=== PATIENT | female | born 1940 | race African-American/Black ===

== ENCOUNTER 2017-11-28 12:41 | Outpatient (CLI) | payer MEDICARE ==
--- NOTE | 2017-12-07 16:53 | MMO ---
BILATERAL DIGITAL SCREENING MAMMOGRAMS: 12/07/17 HISTORY: 77-year-old female presents for digital screening mammography. COMPARISON: 12/11/15, 02/23/12. This patient's mammogram is interpreted with the assistance of computer aided detection. Mild scattered areas of fibroglandular changes are noted bilaterally. There are multiple bilateral ci rcumscribed masses in both breasts, primarily upper outer aspects, stable. No direct or indirect evid ence of malignancy. IMPRESSION: BI-RADS 2: Benign Finding(s) Routine annual screening mammography (for women over age 40). POS: KEKE
== END 2017-11-28 12:42 | disposition home or self-care (01) ==
LOC: SCSMAMMO 12:41
PROVIDERS: ATTEND Obstetrics & Gynecology
DX: Z12.31 Encounter for screening mammogram for malignant neoplasm of breast (principal)
CPT/HCPCS: 77067

== ENCOUNTER 2018-07-20 14:04 | Emergency (ER) | payer MEDICARE ==
[2018-07-20 14:53] LABS: Bilirubin Negative (Negative); Blood, Urine Negative (Negative); Glucose, Urine (Dipstick) Negative (Negative); Leukocyte Trace (Negative); Nitrite Negative (Negative); Protein, Urine (Dipstick) Negative (Neg-Trace); Urobilinogen 0.2 mg/dL (0.2-1.0)
[2018-07-20 14:55] LABS: Clarity Hazy (Clear)
[2018-07-20 14:59] LABS: Bacteria/HPF Rare-Few HPF (None Seen); RBC/HPF None Seen HPF (0-3); WBC/HPF 0-3 HPF (0-3)
--- NOTE | 2018-07-20 15:51 | CT ---
CT ABDOMEN NONCONTRAST CT PELVIS NONCONTRAST: (urolithiasis protocol) DATE: 07/20/18 HISTORY: 77-year-old female with left flank pain COMPARISON: None available. TECHNIQUE: IV injection of iodinated contrast media: none Oral contrast media: none FINDINGS: Other than for urolithiasis, the lack of IV and oral contrast limits the evaluation. Moderate to large amount of stool throughout the colon. There is a segment of right-side of transvers e colon that has mural thickening, and absence of stool. No small bowel dilation. Enlarged uterus wit h numerous coarse calcifications representing numerous calcified fibroids. No small bowel dilation. N o ascites or pneumoperitoneum. No renal, ureteral, or bladder calculus. Normal urinary bladder wall t hickness. Normal appendix. No major pathology identified involving bilateral kidneys, liver, pancreas , spleen, abdominal aorta, or adrenals. Levoscoliosis of lumbar spine with multilevel degenerative di sc disease. No ascites or pneumoperitoneum. No signs of colonic diverticulitis. IMPRESSION: 1. Possibility of colon cancer in the right transverse colon. Recommend correlation with colonoscopy . 2. Constipation. 3. No urolithiasis or obstructive uropathy. 4. Lumbar spondylosis and levoscoliosis. 5. Uterus enlarged by multiple calcified leiomyomata (fibroids). NIKO Meneses POS: [facility]
== END 2018-07-20 15:47 | disposition home or self-care (01) ==
LOC: SCSER 14:04
DX: K59.00 Constipation, unspecified (principal); J45.909 Unspecified asthma, uncomplicated; D25.9 Leiomyoma of uterus, unspecified; F41.9 Anxiety disorder, unspecified; E11.9 Type 2 diabetes mellitus without complications; F32.9 Major depressive disorder, single episode, unspecified; Z79.84 Long term (current) use of oral hypoglycemic drugs; Z79.899 Other long term (current) drug therapy
CPT/HCPCS: 74176; 81003; 81015

== ENCOUNTER 2018-09-08 02:44 | Emergency (ER) | payer MEDICARE ==
[2018-09-08] MEDS ORDERED: Morphine 4 MG/ML VIAL ONE (02:58)
[2018-09-08] MEDS ORDERED: Ketorolac Tromethamine 30 MG/ML VIAL ONE (02:58)
[2018-09-08 03:26] LABS: #Basophils 0.1 thou/uL (0.0-0.2); #Eosinphils 0.5 thou/uL (0.0-0.7); #Lymphocytes 1.5 thou/uL (1.20-3.40); #Monocytes 1.1 thou/uL (0.11-0.59); %Basophils 0.9 % (0.0-1.0); %Eosinophils 4.8 % (0.0-10.0); %Lymphocytes 13.2 % (21.0-51.0); %Monocytes 9.5 % (0.0-10.0); %Neutrophils 71.5 % (42.0-75.0); Hemoglobin 10.6 g/dL (12.0-16.0); Mean Corpuscular HGB CONC 33.9 g/dL (32.0-36.0); Mean Corpuscular Hemoglobin 29.5 pg (27.0-31.0); Mean Corpuscular Volume 86.9 fL (78.0-98.0); Mean Platelet Volume 9.4 fL (7.4-10.4); Platelet Count 188 thou/uL (130-400); RBC Distribution Width 12.3 % (11.5-14.5); Red Blood Cell (RBC) Count 3.58 mill/uL (4.20-5.40); White Blood Cell (WBC) Count 11.1 thou/uL (4.8-10.8)
[2018-09-08 04:34] LABS: ALT (SGPT) 8 U/L (8-55); AST (SGOT) 14 U/L (5-34); Albumin 3.8 g/dL (3.4-4.8); Alkaline Phosphatase 35 U/L (40-150); Anion Gap 13 mmol/L (10-20); BUN (Urea Nitrogen) 25 mg/dL (9.8-20.1); Bilirubin, Total 0.5 mg/dL (0.2-1.2); Calc. Creatinine Clearance 0 mL/min (70-130); Calcium 9.4 mg/dL (7.8-10.44); Carbon Dioxide 27 mmol/L (23-31); Chloride 104 mmol/L (98-107); Estimated GFR-MDRD 60; Globulin 2.1 g/dL (2.4-3.5); Glucose 207 mg/dL (83-110); Potassium 4.1 mmol/L (3.5-5.1); Protein, Total 5.9 g/dL (6.0-8.3); Sodium 140 mmol/L (136-145)
[2018-09-08 06:34] LABS: Hemoglobin 9.9 g/dL (12.0-16.0)
--- NOTE | 2018-09-08 07:46 | RAD ---
AP PELVIS: Date: 09/08/18 INDICATION: Fall down 14 steps around 0100 hours with pelvic pain. FINDINGS: No acute fracture or subluxation is evident. There is a moderate amount of retained stool within the rectal vault. There are scattered vascular calcifications. IMPRESSION: No definite acute osseous abnormality. POS: BH
--- NOTE | 2018-09-08 07:48 | RAD ---
CHEST 1 VIEW: Date: 09/08/18 INDICATION: Fall with chest pain. FINDINGS: Lungs are clear. Heart size is mildly prominent. Aorta is tortuous. No air space opacity, pleural eff usion, or pneumothorax evident. No definite acute osseous abnormality is noted. IMPRESSION: No definite acute cardiopulmonary abnormality. POS: BH
--- NOTE | 2018-09-08 07:49 | RAD ---
RIGHT ELBOW 2 VIEWS: Date: 09/08/18 INDICATION: Fall with right elbow pain. COMPARISON: None. FINDINGS: There is soft tissue gas within the distal volar right arm that may be related to IV placement. Lacer ation within this region cannot be excluded. No acute fracture or subluxation is evident. Enthesopath ic change is seen within the olecranon. IMPRESSION: 1. Soft tissue gas in the distal anterior right arm may be related to IV placement or laceration. Re commend correlation. 2. No acute osseous abnormality of the right elbow. POS: BH
--- NOTE | 2018-09-08 07:50 | RAD ---
2 VIEWS RIGHT HUMERUS: Date: 09/08/18 INDICATION: History of fall with arm pain. COMPARISON: None. IMPRESSION: There is soft tissue gas within the anterolateral aspect of the right arm may be related to laceratio n or may be related to IV placement. No acute fracture is evident. POS: BH
--- NOTE | 2018-09-08 07:51 | RAD ---
RIGHT FOREARM 2 VIEWS: Date: 09/08/18 INDICATION: History of fall down stairs with right arm pain. COMPARISON: None. FINDINGS: No acute fracture or subluxation is evident. Soft tissues are normal appearing. IMPRESSION: No acute osseous abnormality. POS: BH
--- NOTE | 2018-09-08 07:52 | RAD ---
RIGHT KNEE 4 VIEWS: Date: 09/08/18 INDICATION: Fall with right knee pain. COMPARISON: None. FINDINGS: No acute fracture or subluxation is evident. There is mild osteoarthrosis of the right knee. Soft tis sues are normal appearing. IMPRESSION: No acute osseous abnormality. POS: BH
--- NOTE | 2018-09-08 08:02 | CT ---
CT OF THE BRAIN WITHOUT CONTRAST: Date: 09/08/18 INDICATION: History of fall with concern for head injury. COMPARISON: None. FINDINGS: There is significant postsurgical change of sinus surgery involving the frontal sinus, ethmoid air ce lls, and maxillary sinuses. There is moderate mucosal thickening seen within the paranasal sinuses. M astoid air cells are clear. Skull is intact. There is moderate chronic small vessel white matter ischemic change. There is a remote lacunar infarc t involving the left frontal quintero radiata. Septum pellucidum and third ventricle are midline. IMPRESSION: 1. No acute intracranial abnormality. 2. Moderate chronic small vessel white matter ischemic change. 3. Moderate paranasal sinus disease. POS: BH
--- NOTE | 2018-09-08 08:04 | CT ---
CT CERVICAL SPINE WITHOUT CONTRAST: Date: 09/08/18 INDICATION: Fall with neck pain. COMPARISON: None. FINDINGS: No acute fracture or subluxation is evident. There is mild multilevel spondylosis of the cervical spi ne. Spinal alignment is preserved. Osseous central canal appears preserved. Prevertebral soft tissues are normal appearing. Craniocervical junction is normal. Lung apices are clear. IMPRESSION: No acute fracture or subluxation is demonstrated. POS: BH
--- NOTE | 2018-09-08 08:17 | CT ---
CT ABDOMEN AND PELVIS WITH IV CONTRAST: Date: 09/08/18 INDICATION: History of fall with abdominal pain. COMPARISON: Noncontrast CT of abdomen and pelvis dated 07/20/18. FINDINGS: Lung bases are clear. No definite acute traumatic injury is seen involving the solid organs of the abdomen. Small calcified granuloma seen within the liver. No free fluid or free air is demonstrated. There is a large right anterior abdominal wall hematoma within the subcutaneous tissues measuring 9.7 x 7.0 cm with surrounding inflammatory change. Again seen is a fibroid uterus. The bladder is within normal limits. There is a moderate amount of re tained stool within the colon and rectum. The suspicious region involving the transverse colon on the prior examination is somewhat limited due to poor distention of portions of the transverse colon, as well as retained stool. There is levoscoliosis of the lumbar spine. There is scattered degenerative change. IMPRESSION: 1. Large right subcutaneous abdominal wall hematoma measuring 9.7 cm with surrounding inflammatory c hange. 2. Persistent nondistention of portions of the transverse colon limits CT evaluation. Would recommen d appropriate colon screening. There was suspicion for a focal colonic lesion on the prior CT done . Recommend correlation with patient's history for intervening colonoscopy. 3. Fibroid uterus. 4. Prominent amount of retained stool within the rectum and colon. POS: [facility]
[2018-09-08] MEDS ORDERED: ISOVUE-370 76%-LOCM 1 ML ONE (15:15)
== END 2018-09-08 07:32 | disposition home or self-care (01) ==
LOC: ERS 02:44
DX: S30.1XXA Contusion of abdominal wall, initial encounter (principal); J45.909 Unspecified asthma, uncomplicated; E11.9 Type 2 diabetes mellitus without complications; I10 Essential (primary) hypertension; F41.9 Anxiety disorder, unspecified; F32.9 Major depressive disorder, single episode, unspecified; Z79.899 Other long term (current) drug therapy; Z79.84 Long term (current) use of oral hypoglycemic drugs; W10.9XXA Fall (on) (from) unspecified stairs and steps, initial encounter
CPT/HCPCS: 36415; 70450; 71045; 72125; 72170; 74177; 80053; 85025; 96361; 96374; 96375; J1885; J2270; Q9966

== ENCOUNTER 2020-05-05 11:08 | Inpatient (IN) | payer MEDICARE ==
[~2020-05-05 11:08] MED LIST: Iopamidol-370 76% 500 ML 1 ML ONE
--- NOTE | 2020-05-05 11:27 | CT ---
CT BRAIN WITHOUT CONTRAST: HISTORY: Level 1 stroke. COMPARISON: 11/20/2018, 03/03/2020 FINDINGS: There are foci of decreased attenuation in the periventricular white matter, consistent with chronic small vessel ischemic disease. No evidence of acute infarct, hemorrhage, midline shift or abnormal extra-axial fluid collections is seen. The ventricular size is stable and the basilar cisterns are pa tent. The bony calvarium is intact. There is mucosal disease in the paranasal sinuses. IMPRESSION: No CT evidence of acute intracranial process. Discussed over the telephone with ER physician Dr. Hernandes at 11:24 AM
--- NOTE | 2020-05-05 11:35 | CT ---
CT CERVICAL SPINE WITH CORONAL AND SAGITTAL REFORMATIONS AND NO IV CONTRAST: HISTORY: Fall, altered mental status, neck pain, level 1 stroke FINDINGS: Multilevel degenerative changes are present. No fracture, subluxation or facet malalignment is identified. No prevertebral soft tissue swelling is apparent. The visualized lung apices are unremarkable. Thyroid lesions are stable since 09/08/2018. IMPRESSION: No CT evidence for fracture or traumatic subluxation. Discussed over the telephone with ER physician Dr. Hernandes at 11:30 AM
[2020-05-05 11:41] LABS: #Lymphocytes 0.5 thou/uL (1.20-3.40); #Neutrophils 8.6 thou/uL (1.40-6.50); %Basophils 0.4 % (0.0-1.0); %Lymphocytes 4.8 % (21.0-51.0); %Monocytes 9.7 % (0.0-10.0); Hemoglobin 12.3 g/dL (12.0-16.0); Mean Corpuscular HGB CONC 32.9 g/dL (32.0-36.0); Mean Corpuscular Hemoglobin 29.4 pg (27.0-31.0); Mean Corpuscular Volume 89.5 fL (78.0-98.0); Mean Platelet Volume 9.7 fL (7.4-10.4); Platelet Count 267 thou/uL (130-400); RBC Distribution Width 12.4 % (11.5-14.5); Red Blood Cell (RBC) Count 4.17 mill/uL (4.20-5.40); White Blood Cell (WBC) Count 10.1 thou/uL (4.8-10.8)
[2020-05-05 11:45] LABS: INR-International Normal Ratio 0.9; PTT 25.4 sec (22.9-36.1); Prothrombin Time 12.6 sec (12.0-14.7)
--- NOTE | 2020-05-05 12:12 | RAD ---
RADIOGRAPH CHEST 1 VIEW: DATE: 05/05/2020 TIME: 11:59 AM HISTORY: 79-year-old female with altered mental status. Concern for aspiration. COMPARISON: 09/08/2018 FINDINGS: Evaluation is limited, and comparison is difficult, because of suboptimal positioning: Patient is rot ated to the left. Supine positioning makes this insensitive for pneumothorax detection. No gross consolidation is visualized. No gross pulmonary edema. IMPRESSION: No gross consolidation.
[2020-05-05 12:25] LABS: ALT (SGPT) 11 U/L (8-55); AST (SGOT) 28 U/L (5-34); Albumin 4.3 g/dL (3.4-4.8); Alkaline Phosphatase 57 U/L (40-110); Anion Gap 19 mmol/L (10-20); BUN (Urea Nitrogen) 16 mg/dL (9.8-20.1); Bilirubin, Total 0.5 mg/dL (0.2-1.2); CK (CPK) 132 U/L (29-168); Calc. Creatinine Clearance 0 mL/min (70-130); Calcium 9.6 mg/dL (7.8-10.44); Carbon Dioxide 26 mmol/L (23-31); Chloride 102 mmol/L (98-107); Globulin 3.3 g/dL (2.4-3.5); Glucose 202 mg/dL (83-110); Potassium 5.2 mmol/L (3.5-5.1); Protein, Total 7.6 g/dL (6.0-8.3); Sodium 142 mmol/L (136-145)
[2020-05-05 12:26] LABS: CKMB 3.2 ng/mL (0-6.6)
[2020-05-05 13:03] LABS: Bacteria/HPF None Seen HPF (None Seen); Bilirubin Negative (Negative); Blood, Urine 1+ (Negative); Clarity Clear (Clear); Glucose, Urine (Dipstick) 100 mg/dL (Negative); Ketone, Urine Negative (Negative); Leukocyte Negative Leu/uL (Negative); Nitrite Negative (Negative); Protein, Urine (Dipstick) 30 mg/dL (Neg-Trace); RBC/HPF 0-3 HPF (0-3); Specific Gravity, Urine 1.022 (1.002-1.036); Squamous Epithelial None Seen HPF (0-3); Urobilinogen Normal mg/dL (Less than 2); WBC/HPF 0-3 HPF (0-3); pH, Urine 7.5 (5.0-9.0)
[2020-05-05] MEDS ORDERED: Aspirin 300 MG Suppository ONE (13:18)
--- NOTE | 2020-05-05 13:36 | PDOC.HHP ---
Hospitalist HPI - History of Present Illness Altered mental status History of Present Illness: Patient has a history of dementia, she was found down by home health nurse, normally patient is alert and oriented x4, currently patient is nonverbal, patient is not able to provide any history Patient has a trial manager who left the patient in her chair around 8, and when she returned around 9 patient was found on the floor, trial manager noticed some blood drooling from her mouth, trial manager called paramedics and subsequently patient was brought to emergency room with backboard with a c-collar in place. Paramedics checked blood sugar which was 255, she was saturating 97% and she was hemodynamically stable with blood pressure 170/77 and pulse 70 irregular, patient was slightly combative upon arrival. In emergency room patient is given aspirin rectally, patient had CT brain which was negative for any acute intracranial process, CT cervical spine negative for any fracture or dislocation, CT [facility] [place] was also negative for any occlusion, chest x-ray was unremarkable ED Course: BP: 172/62, MAP: 98, Pulse: 73, Resp: 11, Pain: UTR, O2 sat: 94 on (Room Air), Time: 05/05/2020 11:55. Patient is given aspirin rectally Hospitalist ROS - Review of Systems ROS unobtainable: due to mental status - Medication Medications: Home medication CURRENT MEDICATIONS lisinopril MonMay 05, 2020 13:03 BENITO Moran, Tram TABLET : Strength - 10 mg : ORAL Patient Dose: unk mg Oral once a day. metFORMIN MonMay 05, 2020 13:03 BENITO Moran Tram TABLET : Strength - 1,000 mg : ORAL Patient Dose: unk mg Oral once a day. CeleXA MonMay 05, 2020 13:04 BENITO Moran, Tram tablet : Strength - 10 mg : ORAL Patient Dose: Unknown. ibuprofen MonMay 05, 2020 13:06 BENITO Moran, Tram tablet : Strength - 400 mg : ORAL Patient Dose: Unknown. pravastatin MonMay 05, 2020 13:20 BENITO Moran, Tram tablet : Strength - 20 mg : ORAL Patient Dose: Unknown. ferrous sulfate MonMay 05, 2020 13:21 BENITO Moran, Tram tablet : Strength - 325 mg (65 mg iron) : ORAL Patient Dose: Unknown. Dulcolax Stool Softener (dss) MonMay 05, 2020 13:21 BENITO Moran, Tram capsule : Strength - 100 mg : ORAL Patient Dose: Unknown. Allergies no known drug allergy CODE STATUS patient is full code Hospitalist History - Past Medical History Other Medical History: Hypertension Diabetes type 2 Asthma - Past Surgical History Other Surgical History: Past psychiatric history anxiety and depression - Family History Other Family History: No strong family history of premature coronary artery disease stroke or cancer - Social History Other Social History: No history of tobacco alcohol or illicit drug abuse Hospitalist Results - Labs Result Diagrams: 05/05/20 11:28 05/05/20 11:28 Lab results: WBC 10.1 thou/uL (4.8-10.8) 05/05/20 11:28 Hgb 12.3 g/dL (12.0-16.0) 05/05/20 11:28 Hct 37.3 % (36.0-47.0) 05/05/20 11:28 MCV 89.5 fL (78.0-98.0) 05/05/20 11:28 Plt Count 267 thou/uL (130-400) 05/05/20 11:28 Neutrophils % 85.0 % (42.0-75.0) H 05/05/20 11:28 Sodium 142 mmol/L (136-145) 05/05/20 11:28 Potassium 5.2 mmol/L (3.5-5.1) H 05/05/20 11:28 Chloride 102 mmol/L (98-107) 05/05/20 11:28 Carbon Dioxide 26 mmol/L (23-31) 05/05/20 11:28 BUN 16 mg/dL (9.8-20.1) 05/05/20 11:28 Creatinine 1.02 mg/dL (0.6-1.1) 05/05/20 11:28 Glucose 202 mg/dL (83-110) H 05/05/20 11:28 Calcium 9.6 mg/dL (7.8-10.44) 05/05/20 11:28 Total Bilirubin 0.5 mg/dL (0.2-1.2) 05/05/20 11:28 AST 28 U/L (5-34) 05/05/20 11:28 ALT 11 U/L (8-55) 05/05/20 11:28 Alkaline Phosphatase 57 U/L (40-110) 05/05/20 11:28 Creatine Kinase 132 U/L (29-168) 05/05/20 11:28 CK-MB (CK-2) 3.2 ng/mL (0-6.6) 05/05/20 11:28 Troponin I 0.068 ng/mL (< 0.028) H 05/05/20 11:28 B-Natriuretic Peptide 69.6 pg/mL (0-100) 05/05/20 11:28 Serum Total Protein 7.6 g/dL (6.0-8.3) 05/05/20 11:28 Albumin 4.3 g/dL (3.4-4.8) 05/05/20 11:28 Urine Ketones Negative mg/dL (Negative) 05/05/20 12:15 Urine Blood 1+ (Negative) A 05/05/20 12:15 Urine Nitrite Negative (Negative) 05/05/20 12:15 Ur Leukocyte Esterase Negative Javier/uL (Negative) 05/05/20 12:15 Urine RBC 0-3 HPF (0-3) 05/05/20 12:15 Urine WBC 0-3 HPF (0-3) 05/05/20 12:15 Ur Squamous Epith Cells None Seen HPF (0-3) 05/05/20 12:15 Urine Bacteria None Seen HPF (None Seen) 05/05/20 12:15 - EKG Interpretation EK lead EKG shows, atrial fibrillation with controlled ventricular response, Rate (beats per minute): 82, Interpretation:, Conduction normal, ST segments normal, T waves normal, [place], left, Clinical impression:, No acute findings for ischemia at this time. - Radiology Interpretation Other Status: image reviewed by me Additional Comment: Chest x-ray consistent with normal, no gross consolidation CT [facility] [place] angiography showing no hemodynamically significant stenosis or occlusion or aneurysm CT brain showed no evidence of acute intracranial process, mucosal disease in the paranasal sinuses, chronic small vessel ischemic changes CT cervical spine negative for any trauma, no fracture or subluxation Hospitalist H&P A/P - Problem (1) Altered mental status Code(s): R41.82 - ALTERED MENTAL STATUS, UNSPECIFIED Status: Acute Assessment and Plan: Etiology uncertain at this point, CT brain is negative, CT [facility] [place] is also negative, patient's baseline status changed, will consult neurology, at this point we need to rule out stroke as well as any cardiac event, all metabolic parameters are unremarkable, no evidence of UTI, Patient will be kept in the hospital, stroke floor will be admitted for observation, neuro check every 4 hourly, will obtain MRI brain, EEG, echocardiography, telemetry monitoring, continue aspirin, (2) Elevated troponin Code(s): R77.8 - OTHER SPECIFIED ABNORMALITIES OF PLASMA PROTEINS Status: Acute Assessment and Plan: EKG showing A. fib with controlled ventricular response, echocardiography will be obtained, will start metoprolol 25 mg twice daily, will consider evaluation while in hospital for chronic anticoagulation in view of A. fib, will continue aspirin, will do serial cardiac enzymes x3 (3) Hypertension Code(s): I10 - ESSENTIAL (PRIMARY) HYPERTENSION Status: Chronic Qualifiers: Hypertension type: essential hypertension Qualified Code(s): I10 - Essential (primary) hypertension (4) Diabetes type 2, controlled Code(s): E11.9 - TYPE 2 DIABETES MELLITUS WITHOUT COMPLICATIONS Status: Chronic Qualifiers: Diabetes mellitus group home insulin use: with intermediate designer use Diabetes mellitus complication status: without complication Qualified Code(s): E11.9 - Type 2 diabetes mellitus without complications; Z79.4 - senior care (current) use of insulin (5) Dyslipidemia Code(s): E78.5 - HYPERLIPIDEMIA, UNSPECIFIED Status: Chronic (6) Dementia Code(s): F03.90 - UNSPECIFIED DEMENTIA WITHOUT BEHAVIORAL DISTURBANCE Status: Chronic Qualifiers: Dementia type: Alzheimer's disease (7) Anxiety and depression Code(s): F41.9 - ANXIETY DISORDER, UNSPECIFIED; F32.9 - MAJOR DEPRESSIVE DISORDER, SINGLE EPISODE, UNSPECIFIED Status: Chronic (8) Atrial fibrillation Code(s): I48.91 - UNSPECIFIED ATRIAL FIBRILLATION Status: Chronic Qualifiers: Atrial fibrillation type: unspecified chronic Qualified Code(s): I48.20 - Chronic atrial fibrillation, unspecified; I48.2 - Chronic atrial fibrillation Assessment and Plan: Currently rate controlled, will do serial cardiac enzyme, echocardiography, will consider evaluation for chronic anticoagulation, will start Lovenox 1 mg/kg subcu 12 hourly (9) Hyperkalemia Code(s): E87.5 - HYPERKALEMIA Status: Acute Assessment and Plan: Mild, may be related to the lisinopril - Plan Plan: Plan Observation to stroke floor Neuro check every 4 hourly Telemetry monitoring MRI brain Echocardiography Neurology consultation Check orthostatic vitals We will consider Lovenox 1 mg/kg subcu every 12 hourly Her home medications will be reconciled We will repeat hemoglobin A1c, TSH, lipid profile tomorrow Hyperglycemia protocol treatment, TIA protocol treatment initiated Plan of care discussed with the patient's son and trial manager We will start IV fluid as well We will get EEG DVT prophylaxis Lovenox GI prophylaxis Protonix 40 mg p.o. daily CODE STATUS patient is full code Disposition plan based on clinical course likely 24 to 48 hours.
--- NOTE | 2020-05-05 15:32 | CT ---
EXAM: CT ANGIOGRAM OF THE HEAD AND NECK INDICATION: Level 1 stroke. Last seen normal at 2100 hours. COMPARISON: None TECHNIQUE: CT angiogram of the head and neck are performed in the axial plane. Three-dimensional refo rmatted images are submitted for interpretation. FINDINGS: CTA OF THE HEAD WITH AND WITHOUT CONTRAST: POSTCONTRAST CT OF BRAIN: Pathologic enhancement: No pathologic enhancement the brain. Left scalp hematoma, near the vertex. Co nfluent white matter hypodensities due to chronic small vessel ischemic change. Postcontrast soft tissue neck CT: Aerodigestive tract:Aerodigestive tract is patent. No mucosal abnormality. Limited evaluation of the oral cavity due to dental amalgam artifact. Epiglottis has a normal caliber. Preepiglottic fat is preserved. Sinuses: Polypoid mass occupying the right maxillary sinus. Nonemergent direct visualization is recom mended. Findings may be due to a remote process given evidence of previous endoscopic sinonasal surgery. Orbits: Bilateral ocular lens implants are appropriately located. Both globes are intact. Retrobulbar fat is preserved. Symmetric attenuation the optic nerves and ocular rectus muscles. Salivary glands:Appropriate attenuation of the parotid and submandibular glands. Thyroid gland: Heterogeneous. Hypodense nodules in both thyroid lobes. Consider nonemergent thyroid u ltrasound. Lymph nodes: No evidence of lymphadenopathy by size criteria. Paraspinal muscles: Symmetric attenuation of the sternocleidomastoid muscles. Appropriate attenuation of the paraspinal muscles. Cervical spine:Vertebral body height is maintained. No fracture. No significant central canal stenosi s or significant neural foraminal narrowing. Limited evaluation by technique. Upper mediastinum and lung apices: Chronic changes. No acute abnormality. CTA OF THE NECK WITH CONTRAST: Aorta: Appropriate enhancement and luminal diameter. Right carotid artery: Appropriate enhancement and luminal diameter of the origin of the right carotid artery, innominate artery, carotid bifurcation and internal carotid artery. No definite stenosis based upon NASCET criteria. Left carotid: Appropriate enhancement and luminal diameter of the origin left carotid artery, common carotid artery, carotid bifurcation and internal carotid artery. No significant stenosis based upon NASCET criteria. Subclavian arteries:Symmetric and patent Vertebral arteries:Patent throughout their course in the neck, codominant CTA OF THE BRAIN: Intracranial internal carotid arteries:Appropriate enhancement and luminal diameter. Mild atheroscler osis in bilateral paraclinoid segments. Anterior circulation: Appropriate enhancement and luminal diameter bilateral A1 segments, A2 segments , M1 segments and proximal MCA branches. Intracranial vertebral arteries: Appropriate enhancement and luminal diameter Posterior circulation: Both vertebral arteries supply normal caliber basilar artery. Appropriate enha ncement and luminal diameter involving bilateral P1 segments. IMPRESSION: 1. No hemodynamically significant stenosis, occlusion or aneurysmal formation. 2. Additional findings and recommendations as detailed above. Results of the study discussed with Dr. Mancia 05/05/2020 11:46 AM Code CR Transcribed Date/Time: 05/05/2020 3:32 PM
[2020-05-05 16:07] LABS: Troponin I 0.097 ng/mL (< 0.028)
[2020-05-05 16:57] VITALS: BMI 24.9
[2020-05-05] MEDS ORDERED: Ondansetron PF 4 MG/2 ML Vial IVP PRN (16:57)
[2020-05-05] MEDS ORDERED: Dextrose 5% in Water 1,000 ML IV PRN (16:57)
[2020-05-05] MEDS ORDERED: HumaLOG 300 UNITS/3 ML VIAL SC PRN (16:57)
[2020-05-05] MEDS ORDERED: HYDROcodone/Acetaminophen 5/325 mg Tablet PO PRN (16:57)
[2020-05-05] MEDS ORDERED: Nitroglycerin 0.4 MG TAB (25 Tab Bottle) SL PRN (16:57)
[2020-05-05] MEDS ORDERED: Acetaminophen 325 MG TAB PO PRN (16:57)
[2020-05-05] MEDS ORDERED: Labetalol HCl 100 MG/20 ML VIAL SLOW IVP PRN (16:57)
[2020-05-05] MEDS ORDERED: Calcium Carbonate 500 MG ChewTAB PO PRN (16:57)
[2020-05-05] MEDS ORDERED: hydrALAZINE 20 MG/ML VIAL SLOW IVP PRN (16:57)
[2020-05-05] MEDS ORDERED: Diabetic Tussin 200 MG/10 ML UDCUP PO PRN (16:57)
[2020-05-05] MEDS ORDERED: Ondansetron ODT 4 MG TAB PO PRN (16:57)
[2020-05-05] MEDS ORDERED: Loperamide HCl 2 MG CAP PO PRN (16:57)
[2020-05-05] MEDS ORDERED: Loratadine 10 MG TAB PO PRN (16:57)
[2020-05-05] MEDS ORDERED: Bisacodyl 10 MG SUPP PR PRN (16:57)
[2020-05-05] MEDS ORDERED: Sodium Chloride 0.65% Nasal 44 ML BOT EA NARE PRN (16:57)
[2020-05-05] MEDS ORDERED: Cepastat Lozenges 1 LOZ PO PRN (16:57)
[2020-05-05] MEDS ORDERED: Dextrose 50% Abboject 50 ML SYRINGE SLOW IVP PRN (16:57)
[2020-05-05] MEDS ORDERED: Enoxaparin Sodium 80 MG/0.8 ML SYRINGE SC SCH (18:00)
[2020-05-05 18:40] LABS: Troponin I 0.106 ng/mL (< 0.028)
[2020-05-05] MEDS: Dextrose 5 % And 0.9 % NaCl 1,000 ML IV SCH (19:52)
[2020-05-05] MEDS: Atorvastatin Calcium 40 MG TAB PO SCH (22:08)
[2020-05-05] MEDS: Metoprolol Tartrate 25 MG TAB PO SCH (22:08)
[2020-05-06] MEDS ORDERED: Acetaminophen 650 MG Suppository PR PRN (05:23)
[2020-05-06 05:39] LABS: Anion Gap 17 mmol/L (10-20); BUN (Urea Nitrogen) 13 mg/dL (9.8-20.1); Calc. Creatinine Clearance 60 mL/min (70-130); Calcium 9.6 mg/dL (7.8-10.44); Carbon Dioxide 28 mmol/L (23-31); Cardiac Risk 2.2 (Less than 4.5); Chloride 102 mmol/L (98-107); Cholesterol 151 mg/dl (< 200 Desired); Glucose 151 mg/dL (83-110); HDL Cholesterol 69 mg/dL (>60 Neg Risk); LDL Cholesterol, Calculated 65 mg/dL; Potassium 3.5 mmol/L (3.5-5.1); Sodium 143 mmol/L (136-145); Triglycerides 85 mg/dL (Less than 150)
[2020-05-06] MEDS: Dextrose 5 % And 0.9 % NaCl 1,000 ML IV SCH ×2 (05:40→20:57)
[2020-05-06 07:08] LABS: #Eosinphils 0.1 thou/uL (0.0-0.7); #Lymphocytes 1.5 thou/uL (1.20-3.40); #Monocytes 1.4 thou/uL (0.11-0.59); #Neutrophils 7.4 thou/uL (1.40-6.50); %Basophils 0.3 % (0.0-1.0); %Eosinophils 1.2 % (0.0-10.0); %Lymphocytes 14.6 % (21.0-51.0); %Monocytes 13.6 % (0.0-10.0); %Neutrophils 70.4 % (42.0-75.0); Hemoglobin 11.3 g/dL (12.0-16.0); Mean Corpuscular HGB CONC 33.2 g/dL (32.0-36.0); Mean Corpuscular Hemoglobin 29.3 pg (27.0-31.0); Mean Corpuscular Volume 88.3 fL (78.0-98.0); Platelet Count 251 thou/uL (130-400); RBC Distribution Width 12.4 % (11.5-14.5); Red Blood Cell (RBC) Count 3.87 mill/uL (4.20-5.40); White Blood Cell (WBC) Count 10.5 thou/uL (4.8-10.8)
[2020-05-06] MEDS ORDERED: FLU VACC QS2020-21(65YR UP)/PF 240 MCG/0.7 ML SYRINGE IM ONE (09:00)
[2020-05-06] MEDS: Metoprolol Tartrate 25 MG TAB PO SCH ×3 (09:04→21:15)
[2020-05-06] MEDS: Enoxaparin Sodium 80 MG/0.8 ML SYRINGE SC SCH ×2 (09:04→20:58)
[2020-05-06] MEDS: Aspirin 325 mg Enteric Coated Tablet PO SCH (09:04)
[2020-05-06] MEDS: HumaLOG 300 UNITS/3 ML VIAL SC PRN (11:55)
--- NOTE | 2020-05-06 12:16 | CON ---
NEUROLOGY CONSULTATION DATE OF CONSULTATION: 05/06/2020 REASON FOR CONSULTATION: Altered mental status. HISTORY OF PRESENT ILLNESS: Ms. Fletcher is a 79-year-old female with history significant for hypertension, diabetes, asthma, and dementia, presented to the emergency room with altered mental status. She was found down by the home health nurse and the patient is unable to provide any history. History is obtained from review of the medical records. Per records, she was found down by the home health nurse and was extremely confused. Otherwise, the patient is alert and oriented x4 at baseline. The patient has a medical records analyst who left the patient in her chair around 8 and when she returned around 9, she was on the floor and has blood drooling out of her mouth. She called the paramedics and she presented to the emergency room for further evaluation. Paramedics checked the blood sugar at that time which was 255 and she was saturating 97% and a blood pressure of 170/77 and pulse 70 and was irregular. The patient was combative upon arrival. In the emergency room, she was given aspirin rectally and CT scan of the head was done, which was negative for acute intracranial process. CT of the cervical spine was negative for any fracture or dislocation and CT of the [place] did not reveal any hemodynamically significant stenosis and she was admitted for further evaluation. REVIEW OF SYSTEMS: Unobtainable due to the patient's mental status. CURRENT MEDICATIONS: 1. Lisinopril. 2. Metformin. 3. Celexa. 4. Ibuprofen. 5. Pravastatin. 6. Ferrous sulfate. 7. Dulcolax stool softener. ALLERGIES: NO KNOWN DRUG ALLERGIES. PAST MEDICAL HISTORY: Hypertension, diabetes mellitus type 2, asthma. PAST SURGICAL HISTORY: section. PAST PSYCHIATRIC HISTORY: Anxiety, depression. FAMILY HISTORY: No family history of premature coronary artery disease or cancer. SOCIAL HISTORY: No history of tobacco, alcohol, or illegal drug abuse. Vital Signs & Weight: Vital Signs (12 hours) Temp Pulse Pulse Pulse Resp BP BP 05/06/20 11:49 61 62 176/90 H 168/86 H 05/06/20 11:00 98.4 F 66 18 05/06/20 07:00 99.2 F 63 18 05/06/20 06:10 99.2 F 05/06/20 05:40 99.9 F H 05/06/20 03:55 99.9 F H 80 18 BP Pulse Ox 05/06/20 11:49 05/06/20 11:00 176/90 H 93 L 05/06/20 07:00 145/81 H 94 L 05/06/20 06:10 05/06/20 05:40 05/06/20 03:55 175/97 H 94 L Weight Weight 168 lb 14.4 oz I&O: 05/05/20 05/06/20 05/07/20 06:59 06:59 06:59 Intake Total 60 Balance 60 Additional Labs: Accuchecks 05/06/20 05/06/20 05/05/20 10:41 05:44 20:57 POC Glucose 191 H 166 H 158 H 05/05/20 17:17 POC Glucose 148 H Radiology Reviewed by me: Yes EKG Reviewed by me: Yes Active Medications Generic Name Dose Route Start Last Admin Trade Name Freq PRN Reason Stop Dose Admin Acetaminophen 650 mg 05/06/20 05:23 05/06/20 05:40 Acetaminophen 650 Mg Suppository [place] 650 mg Q4H PRN Administration Headache/Fever/Mild Pain (1-3) Aspirin 325 mg 05/06/20 09:00 05/06/20 09:04 Aspirin 325 Mg Enteric Coated Tablet PO 325 mg DAILY TAYLOR Administration Atorvastatin Calcium 40 mg 05/05/20 21:00 05/05/20 22:08 Atorvastatin Calcium 40 Mg Tab PO Not Given [facility] Enoxaparin Sodium 80 mg 05/06/20 09:00 05/06/20 09:04 Enoxaparin Sodium 80 Mg/0.8 Ml Syringe SC 80 mg 0900,2100 [facility] Administration Dextrose/Sodium Chloride 1,000 mls @ 75 mls/hr 05/05/20 16:57 05/06/20 05:40 D5 0.9% Ns IV Not Given .[id number] [facility] Insulin Human Lispro 0 units 05/05/20 16:57 05/06/20 11:55 Humalog 300 Units/3 Ml Vial SC 2 unit .MODERATE SLIDING SC PRN Administration Moderate Correctional Scale Metoprolol Tartrate 25 mg 05/05/20 21:00 05/06/20 09:04 Metoprolol Tartrate 25 Mg Tab PO 25 mg BID TAYLOR Administration physical examination: General Appearance: NAD Eye: PERRL ENT: normocephalic atraumatic Neck: supple Heart: irregular Respiratory: CTAB Gastrointestinal: soft, non-tender Extremities: no cyanosis Skin: normal turgor Neurological: cranial nerve grossly intact Musculoskeletal: normal tone, normal strength Psychiatric: normal affect, normal behavior, A&O x 3 DATA REVIEWED: I reviewed the labs. It was significant for hyperkalemia 5.2 and hyperglycemia 202. Lab results: WBC 10.1 thou/uL (4.8-10.8) 05/05/20 11:28 Hgb 12.3 g/dL (12.0-16.0) 05/05/20 11:28 Hct 37.3 % (36.0-47.0) 05/05/20 11:28 MCV 89.5 fL (78.0-98.0) 05/05/20 11:28 Plt Count 267 thou/uL (130-400) 05/05/20 11:28 Neutrophils % 85.0 % (42.0-75.0) H 05/05/20 11:28 Sodium 142 mmol/L (136-145) 05/05/20 11:28 Potassium 5.2 mmol/L (3.5-5.1) H 05/05/20 11:28 Chloride 102 mmol/L (98-107) 05/05/20 11:28 Carbon Dioxide 26 mmol/L (23-31) 05/05/20 11:28 BUN 16 mg/dL (9.8-20.1) 05/05/20 11:28 Creatinine 1.02 mg/dL (0.6-1.1) 05/05/20 11:28 Glucose 202 mg/dL (83-110) H 05/05/20 11:28 Calcium 9.6 mg/dL (7.8-10.44) 05/05/20 11:28 Total Bilirubin 0.5 mg/dL (0.2-1.2) 05/05/20 11:28 AST 28 U/L (5-34) 05/05/20 11:28 ALT 11 U/L (8-55) 05/05/20 11:28 Alkaline Phosphatase 57 U/L (40-110) 05/05/20 11:28 Creatine Kinase 132 U/L (29-168) 05/05/20 11:28 CK-MB (CK-2) 3.2 ng/mL (0-6.6) 05/05/20 11:28 Troponin I 0.068 ng/mL (< 0.028) H 05/05/20 11:28 B-Natriuretic Peptide 69.6 pg/mL (0-100) 05/05/20 11:28 Serum Total Protein 7.6 g/dL (6.0-8.3) 05/05/20 11:28 Albumin 4.3 g/dL (3.4-4.8) 05/05/20 11:28 Urine Ketones Negative mg/dL (Negative) 05/05/20 12:15 Urine Blood 1+ (Negative) A 05/05/20 12:15 Urine Nitrite Negative (Negative) 05/05/20 12:15 Ur Leukocyte Esterase Negative Javier/uL (Negative) 05/05/20 12:15 Urine RBC 0-3 HPF (0-3) 05/05/20 12:15 Urine WBC 0-3 HPF (0-3) 05/05/20 12:15 Ur Squamous Epith Cells None Seen HPF (0-3) 05/05/20 12:15 Urine Bacteria None Seen HPF (None Seen) 05/05/20 12:15 - EKG Interpretation EK lead EKG shows, atrial fibrillation with controlled ventricular response - Radiology Interpretation Other Status: image reviewed by me Additional Comment: Chest x-ray consistent with normal, no gross consolidation CT [place] angiography showing no hemodynamically significant stenosis or occlusion or aneurysm CT brain showed no evidence of acute intracranial process, mucosal disease in the paranasal sinuses, chronic small vessel ischemic changes CT cervical spine negative for any trauma, no fracture or subluxation ASSESSMENT AND PLAN: (1) Altered mental status Code(s): R41.82 - ALTERED MENTAL STATUS, UNSPECIFIED Status: Acute (2) Elevated troponin Code(s): R77.8 - OTHER SPECIFIED ABNORMALITIES OF PLASMA PROTEINS Status: Acute (3) Hypertension Code(s): I10 - ESSENTIAL (PRIMARY) HYPERTENSION Status: Chronic Qualifiers: Hypertension type: essential hypertension Qualified Code(s): I10 - Essential (primary) hypertension (4) Diabetes type 2, controlled Code(s): E11.9 - TYPE 2 DIABETES MELLITUS WITHOUT COMPLICATIONS Status: Chronic Qualifiers: Diabetes mellitus long term care pharmacist insulin use: with long term care pharmacist use Diabetes mellitus complication status: without complication Qualified Code(s): E11.9 - Type 2 diabetes mellitus without complications; Z79.4 - termite treater (current) use of insulin (5) Dyslipidemia Code(s): E78.5 - HYPERLIPIDEMIA, UNSPECIFIED Status: Chronic (6) Dementia Code(s): F03.90 - UNSPECIFIED DEMENTIA WITHOUT BEHAVIORAL DISTURBANCE Status: Chronic Qualifiers: Dementia type: Alzheimer's disease (7) Anxiety and depression Code(s): F41.9 - ANXIETY DISORDER, UNSPECIFIED; F32.9 - MAJOR DEPRESSIVE DISORDER, SINGLE EPISODE, UNSPECIFIED Status: Chronic (8) Atrial fibrillation Code(s): I48.91 - UNSPECIFIED ATRIAL FIBRILLATION Status: Chronic Qualifiers: Atrial fibrillation type: unspecified chronic Qualified Code(s): I48.20 - Chronic atrial fibrillation, unspecified; I48.2 - Chronic atrial fibrillation (9) Hyperkalemia Code(s): E87.5 - HYPERKALEMIA Status: Acute Ms. La Fletcher is a 79-year-old female with history significant for dementia, hypertension, asthma, and diabetes, presented with altered mental status. Altered mental status seems to be multifactorial, but intracranial processes cannot be ruled out. Because of the risk factors, consider MRI of the brain to rule out acute intracranial process. 2D echo to evaluate for left ventricular ejection fraction. Start aspirin and statin for secondary stroke prevention. N.p.o. until cleared by Speech. Telemetry to monitor for arrhythmias. The patient is in atrial fibrillation. Consider Cardiology input. Neuro checks every 4 hours. PT/OT/Speech. Continue medical management per primary team. DVT prophylaxis. EEG to rule out underlying cortical irritability. GI prophylaxis. Permissive control of blood pressure at this time. Strict control of blood glucose. Continue medical management per primary team. We will continue to follow. Thank you for the consult. Job ID: [id number] MTDD
[2020-05-06 13:05] LABS: SARS-CoV-2 MS2 Positive; SARS-CoV-2 N Gene Negative; SARS-CoV-2 S Gene Negative; SARS-CoV-2 by NAA Not Detected (NotDetected); SARS-CoV-2 orf1ab Negative
[2020-05-06] MEDS ORDERED: Iopamidol-370 76% 500 ML 1 ML ONE (13:06)
--- NOTE | 2020-05-06 13:57 | PDOC.HOSPP ---
- Subjective Subjective: Patient was seen examined at bedside. This is a 79 years old female who has significant past medical history of hypertension, diabetes, asthma , who was found down by home health nurse. It was reported that patient was slightly combative upon arrival. Her pulse irregular. She had no history of atrial fib. She was subsequently admitted for further stroke work-up. Chart reviewed. She remains in atrial fib, unknown chronicity, rate is controlled. MRI is pending. Her troponins mildly elevated. Her 2D echo showed preserved EF, otherwise unremarkable. He denies any chest pain. Patient was noted slightly hypoxic on room air with O2 sat in the low 90s. She also had a low-grade temperature with T-max of 99.9. Her COVID was negative. UA was negative - Objective Vital Signs & Weight: Vital Signs (12 hours) Temp Pulse Pulse Pulse Resp BP BP 05/06/20 11:49 61 62 176/90 H 168/86 H 05/06/20 11:00 98.4 F 66 18 05/06/20 07:00 99.2 F 63 18 05/06/20 06:10 99.2 F 05/06/20 05:40 99.9 F H 05/06/20 03:55 99.9 F H 80 18 BP Pulse Ox 05/06/20 11:49 05/06/20 11:00 176/90 H 93 L 05/06/20 07:00 145/81 H 94 L 05/06/20 06:10 05/06/20 05:40 05/06/20 03:55 175/97 H 94 L Weight Weight 168 lb 14.4 oz I&O: 05/05/20 05/06/20 05/07/20 06:59 06:59 06:59 Intake Total 60 Balance 60 Result Diagrams: 05/06/20 04:50 05/06/20 04:50 Additional Labs: Accuchecks 05/06/20 05/06/20 05/05/20 10:41 05:44 20:57 POC Glucose 191 H 166 H 158 H 05/05/20 17:17 POC Glucose 148 H Radiology Reviewed by me: Yes EKG Reviewed by me: Yes Hospitalist ROS - Medication Medications: Active Medications Generic Name Dose Route Start Last Admin Trade Name Freq PRN Reason Stop Dose Admin Acetaminophen 650 mg 05/06/20 05:23 05/06/20 05:40 Acetaminophen 650 Mg Suppository MD 650 mg Q4H PRN Administration Headache/Fever/Mild Pain (1-3) Aspirin 325 mg 05/06/20 09:00 05/06/20 09:04 Aspirin 325 Mg Enteric Coated Tablet PO 325 mg DAILY TAYLOR Administration Atorvastatin Calcium 40 mg 05/05/20 21:00 05/05/20 22:08 Atorvastatin Calcium 40 Mg Tab PO Not Given HS TAYLOR Enoxaparin Sodium 80 mg 05/06/20 09:00 05/06/20 09:04 Enoxaparin Sodium 80 Mg/0.8 Ml Syringe SC 80 mg 0900,2100 [facility] Administration Dextrose/Sodium Chloride 1,000 mls @ 75 mls/hr 05/05/20 16:57 05/06/20 05:40 D5 0.9% Ns IV Not Given .[id number] [facility] Insulin Human Lispro 0 units 05/05/20 16:57 05/06/20 11:55 Humalog 300 Units/3 Ml Vial SC 2 unit .MODERATE SLIDING SC PRN Administration Moderate Correctional Scale Metoprolol Tartrate 25 mg 05/05/20 21:00 05/06/20 09:04 Metoprolol Tartrate 25 Mg Tab PO 25 mg BID TAYLOR Administration - Exam General Appearance: NAD Eye: PERRL ENT: normocephalic atraumatic Neck: supple Heart: irregular Respiratory: CTAB Gastrointestinal: soft, non-tender Extremities: no cyanosis Skin: normal turgor Neurological: cranial nerve grossly intact Musculoskeletal: normal tone, normal strength Psychiatric: normal affect, normal behavior, A&O x 3 Hosp A/P - Plan This is a 79 years old female who has significant past medical history of hypertension, diabetes, asthma , who was found down by home health nurse. It was reported that patient was slightly combative upon arrival. Her pulse irregular. She had no history of atrial fib. She was subsequently admitted for further stroke work-up given altered mental status. Chart reviewed. She remains in atrial fib, unknown chronicity, rate is controlled. MRI is pending. Her troponins mildly elevated. Her 2D echo showed preserved EF, otherwise unremarkable. She denies any chest pain. low grade fever note with slightly hypoxic on room air. Altered mental status - unclear etiology --Continue stroke work-up as recommended by neurology --Follow MRI, continue PT/OT --Follow EEG Atrial fib, rate controlled -unknown chronicity --Trop slightly elevated but remains flat otherwise. Echo reviewed, OK. --cont metoprolol for rate control --she is on Lovenox sq. Given elevated [id number] score, will be benefit from oral AC upon discharge --will consult cardiology to see if further ischemic workup is necessary given pt was found down --Will check CTA to r/o PE as pt is slightly hypoxic on room air. Also has low grade fever, make sure no evidence of pna. DM 2 --check A1C, ISS. Hold metformin d/t contrast studies HTN --cont BB Dysplipidemia --Well controlled, LDL 66. Continue statin Dementia --Without behavioral disturbances. Continue supportive care. Resume Aricept
--- NOTE | 2020-05-06 17:24 | PDOC.EEG ---
Neurology EEG Report - Report Report: This EEG was performed using 24 channel Estimize video digital EEG machine with 24 disc electrodes. This was an extended 2-hours 8 minutes of inpatient video EEG recording. Digital analysis of the EEG was done for Zbigniew and seizure detection which revealed no abnormalities. Background: The posterior background rhythm was not observed. Low amplitude EEG with excessive beta activity intermixed with the background. Hyperventilation.: Not performed. Photic stimulation: No significant response seen with photic stimulation Sleep: No stage change was observed. EEG diagnosis: Absence of posterior background rhythm. Clinical interpretation: This EEG is consistent with mild generalized nonspecific cerebral dysfunction.
--- NOTE | 2020-05-06 18:49 | MRI ---
MRI BRAIN WITHOUT CONTRAST: HISTORY: TIA, confusion, altered mental status CORRELATION: CT scan from 05/05/2020. FINDINGS: No restricted diffusion is seen. There are multiple foci of T2 prolongation in the periventricular wh ite matter, consistent with chronic small vessel ischemic disease. The ventricular size is appropriate and the basilar cisterns are patent. No evidence of acute infarct, hemorrhage, midline shift or abnormal extra-axial fluid collections is seen. There is mucosal disease in the paranasal sinuses. IMPRESSION: No evidence of acute intracranial process.
--- NOTE | 2020-05-06 18:51 | CT ---
CT ANGIO OF CHEST PERFORMED WITH IV CONTRAST ENHANCEMENT WITH 3D RECONSTRUCTIONS: Date: 05/06/2020 HISTORY: Patient found down on floor, hypoxic. FINDINGS: The lungs are clear of any infiltrative process. No pulmonary nodules. No pleural effusions. Old appearing left-sided rib fractures. No significant mediastinal or hilar adenopathy. There are moderate coronary calcifications. The thora cic aorta appears normal in caliber. Main pulmonary artery is dilated at approximately 4.6 cm. There is good pulmonary artery opacification obtained and no CT evidence for pulmonary embolus. Visualized liver parenchyma shows no focal findings. Hypodensities involving the kidneys are most lik jean cysts. Small hiatal hernia is present. IMPRESSION: No CT evidence for pulmonary embolus. Dilated main pulmonary artery noted. POS: PJ
[2020-05-06] MEDS ORDERED: Albuterol Sulfate 2.5 mg/3 ml Neb NEB PRN (19:46)
[2020-05-06] MEDS: risperiDONE 1 MG TAB PO SCH ×2 (20:54→21:16)
[2020-05-06] MEDS: Atorvastatin Calcium 40 MG TAB PO SCH ×2 (20:54→21:05)
[2020-05-06] MEDS: Donepezil HCl 5 MG TAB PO SCH ×2 (20:54→21:15)
[2020-05-06] MEDS: Latanoprost 0.005% Ophth Soln 2.5 ml Bottle EA EYE SCH ×2 (20:55→21:15)
[2020-05-06] MEDS: Citalopram 10 MG TAB PO SCH (21:15)
[2020-05-07 05:07] LABS: #Eosinphils 0.2 thou/uL (0.0-0.7); #Lymphocytes 1.2 thou/uL (1.20-3.40); #Monocytes 0.9 thou/uL (0.11-0.59); #Neutrophils 5.5 thou/uL (1.40-6.50); %Basophils 0.4 % (0.0-1.0); %Eosinophils 2.2 % (0.0-10.0); %Lymphocytes 15.7 % (21.0-51.0); %Monocytes 11.7 % (0.0-10.0); %Neutrophils 69.9 % (42.0-75.0); Hemoglobin 11.9 g/dL (12.0-16.0); Mean Corpuscular HGB CONC 33.8 g/dL (32.0-36.0); Mean Corpuscular Hemoglobin 30.1 pg (27.0-31.0); Mean Corpuscular Volume 89.2 fL (78.0-98.0); Mean Platelet Volume 8.7 fL (7.4-10.4); Platelet Count 240 thou/uL (130-400); RBC Distribution Width 12.2 % (11.5-14.5); Red Blood Cell (RBC) Count 3.96 mill/uL (4.20-5.40); White Blood Cell (WBC) Count 7.8 thou/uL (4.8-10.8)
[2020-05-07 05:30] LABS: Anion Gap 14 mmol/L (10-20); BUN (Urea Nitrogen) 11 mg/dL (9.8-20.1); Calc. Creatinine Clearance 63 mL/min (70-130); Calcium 9.2 mg/dL (7.8-10.44); Carbon Dioxide 29 mmol/L (23-31); Chloride 105 mmol/L (98-107); Glucose 217 mg/dL (83-110); Magnesium 1.5 mg/dL (1.6-2.6); Potassium 3.3 mmol/L (3.5-5.1); Sodium 145 mmol/L (136-145)
[2020-05-07] MEDS: HumaLOG 300 UNITS/3 ML VIAL SC PRN ×3 (06:38→17:37)
[2020-05-07] MEDS ORDERED: Magnesium Sulfate 4 GM in Sodium Chloride 0.9% 250 ML 250 ML IVPB SCH (07:30)
[2020-05-07] MEDS ORDERED: Potassium Chloride 20 MEQ TAB PO SCH (07:30)
[2020-05-07] MEDS ORDERED: Potassium Bicarbonate/Cit Ac 20 MEQ TAB PO SCH (08:30)
[2020-05-07] MEDS ORDERED: Amlodipine 5 MG TAB PO SCH (09:45)
--- NOTE | 2020-05-07 10:08 | CON ---
DATE OF CONSULTATION: 05/07/2020 REASON FOR CONSULTATION: Atrial fibrillation. HISTORY OF PRESENT ILLNESS: Ms. Fletcher is a very pleasant 79-year-old woman with history of dementia. She was brought into the hospital due to altered mental status. It is found that she is in atrial fibrillation since she has been here. The patient is unable to give much in the way of coherent history, but she denies any chest pain or pressure. The patient initially with atrial fibrillation, but since then she has also exhibited sinus rhythm and most recently is in sinus rhythm. No previous cardiac history that we know about. Neurology has seen her and done EEG which showed mild generalized nonspecific cerebral dysfunction. Echocardiogram, ejection fraction 55% to 60%. Unremarkable echocardiogram and CT angiography revealed no obstructive disease and brain MRI revealed no evidence of stroke. PHYSICAL EXAMINATION: GENERAL: The patient is currently awake, conversant. VITAL SIGNS: Blood pressure 170/87, pulse 70 and it is regular. NECK: Neck veins normal. Carotid normal upstrokes. LUNGS: Clear. CARDIAC: Normal S1, normal S2. I do not hear murmur, rub, or gallop. ABDOMEN: Soft, nontender. EXTREMITIES: Warm, dry. No clubbing or cyanosis. There is no edema. DIAGNOSTIC STUDIES: EKG did reveal atrial fibrillation, now she is actually in sinus rhythm. ASSESSMENT: 1. History of dementia. 2. Hypertension. 3. Paroxysmal atrial fibrillation. PLAN: 1. Agree with anticoagulation, although long-term anticoagulation may be somewhat challenging in this patient with dementia, although there is adequate supervision where she is living. 2. I think the best option to try to keep her in sinus rhythm is amiodarone by far the most effective medicine in trying to maintain sinus rhythm. There is some risk of pulmonary or other toxicity, but I think the other medicines available most likely will be much less likely to be effective. We will start the amiodarone. If the heart rate drops, we may need to stop beta-tremaine. We will add amlodipine as well. Job ID: [id number]
[2020-05-07] MEDS: Enoxaparin Sodium 80 MG/0.8 ML SYRINGE SC SCH ×2 (10:28→21:38)
[2020-05-07] MEDS: Aspirin 325 mg Enteric Coated Tablet PO SCH (10:29)
[2020-05-07] MEDS: Multivit, Therapeutic 1 TAB PO SCH (10:29)
[2020-05-07] MEDS: Lisinopril 10 MG TAB PO SCH (10:29)
[2020-05-07] MEDS: Ascorbic Acid 500 mg Chewable Tablet PO SCH (10:29)
[2020-05-07] MEDS: Ferrous Sulfate 325 MG TAB PO SCH (10:29)
[2020-05-07] MEDS: Cyanocobalamin (Vitamin B-12) 1,000 MCG TAB PO SCH (10:30)
[2020-05-07] MEDS: Metoprolol Tartrate 25 MG TAB PO SCH ×2 (10:31→21:39)
[2020-05-07] MEDS: Amiodarone 200 MG TAB PO SCH ×3 (10:35→21:38)
[2020-05-07] MEDS: Fish Oil 1,000 MG CAP PO SCH (11:03)
--- NOTE | 2020-05-07 13:19 | PDOC.HOSPP ---
- Subjective Subjective: Patient was seen and examined at bedside. Also discussed with her son on the phone. Update him with regard to her clinical status and discharge planning - Objective Vital Signs & Weight: Vital Signs (12 hours) Temp Pulse Pulse Resp BP BP BP 05/07/20 11:38 98.9 F 82 18 176/99 H 05/07/20 10:36 71 05/07/20 10:29 178/93 H 05/07/20 09:38 76 178/83 H 05/07/20 07:59 98.1 F 74 16 170/87 H 05/07/20 04:00 97.9 F 75 18 177/93 H Pulse Ox 05/07/20 11:38 93 L 05/07/20 10:36 05/07/20 10:29 05/07/20 09:38 05/07/20 07:59 94 L 05/07/20 04:00 93 L Weight Weight 168 lb 14.4 oz I&O: 05/06/20 05/07/20 05/08/20 06:59 06:59 06:59 Intake Total 909 60 Balance 909 60 Result Diagrams: 05/07/20 04:53 05/07/20 04:53 Additional Labs: Accuchecks 05/07/20 05/07/20 05/06/20 10:30 05:35 20:40 POC Glucose 160 H 219 H 243 H 05/06/20 16:48 POC Glucose 147 H Hospitalist ROS - Medication Medications: Active Medications Generic Name Dose Route Start Last Admin Trade Name Freq PRN Reason Stop Dose Admin Acetaminophen 650 mg 05/06/20 05:23 05/06/20 05:40 Acetaminophen 650 Mg Suppository NE 650 mg Q4H PRN Administration Headache/Fever/Mild Pain (1-3) Amiodarone HCl 400 mg 05/07/20 09:00 05/07/20 10:35 Amiodarone 200 Mg Tab PO 400 mg TID TAYLOR Administration Ascorbic Acid 500 mg 05/07/20 09:00 05/07/20 10:29 Ascorbic Acid 500 Mg Chewable Tablet PO 500 mg DAILY TAYLOR Administration Aspirin 325 mg 05/06/20 09:00 05/07/20 10:29 Aspirin 325 Mg Enteric Coated Tablet PO 325 mg DAILY TAYLOR Administration Atorvastatin Calcium 40 mg 05/05/20 21:00 12/09/20 21:05 Atorvastatin Calcium 40 Mg Tab PO Not Given HS [facility] Citalopram Hydrobromide 10 mg 05/06/20 21:00 05/06/20 21:15 Citalopram 10 Mg Tab PO Not Given HS [facility] Cyanocobalamin 500 mcg 05/07/20 09:00 05/07/20 10:30 Cyanocobalamin (Vitamin B-12) 1,000 Mcg Tab PO 500 mcg DAILY TAYLOR Administration Donepezil HCl 5 mg 05/06/20 21:00 05/06/20 21:15 Donepezil Hcl 5 Mg Tab PO Not Given HS TAYLOR Enoxaparin Sodium 80 mg 05/06/20 09:00 05/07/20 10:28 Enoxaparin Sodium 80 Mg/0.8 Ml Syringe SC 80 mg 899,2099 TAY[facility]OR Administration Ferrous Sulfate 325 mg 05/07/20 08:00 05/07/20 10:29 Ferrous Sulfate 325 Mg Tab PO 325 mg QAM-WM TAYLOR Administration Fish Oil 1,000 mg 05/07/20 09:00 05/07/20 11:03 Fish Oil 1,000 Mg Cap PO Not Given DAILY [facility] Dextrose/Sodium Chloride 1,000 mls @ 75 mls/hr 05/05/20 16:57 05/06/20 20:57 D5 0.9% Ns IV 1,000 mls .[id number] T[facility] Administration Insulin Human Lispro 0 units 05/05/20 16:57 05/07/20 11:55 Humalog 300 Units/3 Ml Vial SC 2 unit .MODERATE SLIDING SC PRN Administration Moderate Correctional Scale Latanoprost 1 drop 05/06/20 21:00 05/06/20 21:15 Latanoprost 0.005% Ophth Soln 2.5 Ml Bottle EA EYE Not Given HS [facility] Lisinopril 10 mg 05/07/20 09:00 05/07/20 10:29 Lisinopril 10 Mg Tab PO 10 mg DAILY [facility] Administration Metoprolol Tartrate 25 mg 05/05/20 21:00 05/07/20 10:31 Metoprolol Tartrate 25 Mg Tab PO 25 mg BID [facility] Administration Multivitamins 1 tab 05/07/20 09:00 05/07/20 10:29 Multivit, Therapeutic 1 Tab PO Not Given DAILY [facility] Risperidone 2 mg 05/06/20 21:00 05/06/20 21:16 Risperidone 1 Mg Tab PO Not Given HS TAYLOR - Exam General Appearance: NAD Eye: PERRL ENT: normocephalic atraumatic Neck: supple Heart: RRR Respiratory: CTAB Gastrointestinal: soft Extremities: no cyanosis, no clubbing Skin: normal turgor Neurological: cranial nerve grossly intact Musculoskeletal: generalized weakness Psychiatric: normal affect, normal behavior Hosp A/P - Plan This is a 79 years old female who has significant past medical history of hypertension, diabetes, asthma , who was found down by home health nurse. It was reported that patient was slightly combative upon arrival. Her pulse irregular. She had no history of atrial fib. She was subsequently admitted for further stroke work-up given altered mental status. Chart reviewed. She remains in atrial fib, unknown chronicity, rate is controlled. MRI is pending. Her troponins mildly elevated. Her 2D echo showed preserved EF, otherwise unremarka ble. She denies any chest pain. low grade fever note with slightly hypoxic on room air, that now resolved Altered mental status - likely d/t arrhythmias caused syncopal episode --stroke workup/EEG negative. --cont supportive cares. cont PT. mental status returned to baseline. Atrial fib, rate controlled -spontaneously converted back to normal sinus rhythm --Paroxysmal. Echo reviewed. Appreciate cardiology input --Cont B beta-tremaine, amiodarone. Lovenox for now, transition to oral anticoa gulation when tolerated PO well --replaced lytes. DM 2 --check A1C, ISS. Hold metformin d/t contrast studies HTN --cont BB, norvasc added by cardiology Dysplipidemia --Well controlled, LDL 66. Continue statin Dementia --Without behavioral disturbances. Continue supportive care. Resume Aricept Dispo: Swing bed. d/w CM/pt's on.
--- NOTE | 2020-05-07 13:51 | PDOC.NEUPN ---
- Subjective Encounter Date: 05/07/20 Subjective: Ms. Urena is much more awake and alert today. She knows her name La - Objective Vital Signs & Weight: Vital Signs (12 hours) Temp Pulse Pulse Resp BP BP BP 05/07/20 11:38 98.9 F 82 18 176/99 H 05/07/20 10:36 71 05/07/20 10:29 178/93 H 05/07/20 09:38 76 178/83 H 05/07/20 07:59 98.1 F 74 16 170/87 H 05/07/20 04:00 97.9 F 75 18 177/93 H Pulse Ox 05/07/20 11:38 93 L 05/07/20 10:36 05/07/20 10:29 05/07/20 09:38 05/07/20 07:59 94 L 05/07/20 04:00 93 L Weight Weight 168 lb 14.4 oz I&O: 05/06/20 05/07/20 05/08/20 06:59 06:59 06:59 Intake Total 909 60 Balance 909 60 Result Diagrams: 05/07/20 04:53 05/07/20 04:53 Additional Labs: Accuchecks 05/07/20 05/07/20 05/06/20 10:30 05:35 20:40 POC Glucose 160 H 219 H 243 H 05/06/20 16:48 POC Glucose 147 H Radiology Reviewed by me: Yes EKG Reviewed by me: Yes ROS - Review of Systems ROS unobtainable: due to mental status (Baseline dementia) - Medication Medications: Active Medications Generic Name Dose Route Start Last Admin Trade Name Dl PRN Reason Stop Dose Admin Acetaminophen 650 mg 05/06/20 05:23 05/06/20 05:40 Acetaminophen 650 Mg Suppository [place] 650 mg Q4H PRN Administration Headache/Fever/Mild Pain (1-3) Amiodarone HCl 400 mg 05/07/20 09:00 05/07/20 10:35 Amiodarone 200 Mg Tab PO 400 mg TID TAYLOR Administration Ascorbic Acid 500 mg 05/07/20 09:00 05/07/20 10:29 Ascorbic Acid 500 Mg Chewable Tablet PO 500 mg DAILY TAYLOR Administration Aspirin 325 mg 05/06/20 09:00 05/07/20 10:29 Aspirin 325 Mg Enteric Coated Tablet PO 325 mg DAILY TAYLOR Administration Atorvastatin Calcium 40 mg 05/05/20 21:00 05/06/20 21:05 Atorvastatin Calcium 40 Mg Tab PO Not Given HS [facility] Citalopram Hydrobromide 10 mg 05/06/20 21:00 05/06/20 21:15 Citalopram 10 Mg Tab PO Not Given HS [facility] Cyanocobalamin 500 mcg 05/07/20 09:00 05/07/20 10:30 Cyanocobalamin (Vitamin B-12) 1,000 Mcg Tab PO 500 mcg DAILY TAYLOR Administration Donepezil HCl 5 mg 05/06/20 21:00 05/06/20 21:15 Donepezil Hcl 5 Mg Tab PO Not Given HS [facility] Enoxaparin Sodium 80 mg 05/06/20 09:00 05/07/20 10:28 Enoxaparin Sodium 80 Mg/0.8 Ml Syringe SC 80 mg 0900,2100 TAYLOR Administration Ferrous Sulfate 325 mg 05/07/20 08:00 05/07/20 10:29 Ferrous Sulfate 325 Mg Tab PO 325 mg QAM-WM TAYLOR Administration Fish Oil 1,000 mg 05/07/20 09:00 05/07/20 11:03 Fish Oil 1,000 Mg Cap PO Not Given DAILY [facility] Dextrose/Sodium Chloride 1,000 mls @ 75 mls/hr 05/05/20 16:57 05/06/20 20:57 D5 0.9% Ns IV 1,000 mls .[id number] TAYLOR Administration Insulin Human Lispro 0 units 05/05/20 16:57 05/07/20 11:55 Humalog 300 Units/3 Ml Vial SC 2 unit .MODERATE SLIDING SC PRN Administration Moderate Correctional Scale Latanoprost 1 drop 05/06/20 21:00 05/06/20 21:15 Latanoprost 0.005% Ophth Soln 2.5 Ml Bottle EA EYE Not Given HS [facility] Lisinopril 10 mg 05/07/20 09:00 05/07/20 10:29 Lisinopril 10 Mg Tab PO 10 mg DAILY TAYLOR Administration Metoprolol Tartrate 25 mg 05/05/20 21:00 05/07/20 10:31 Metoprolol Tartrate 25 Mg Tab PO 25 mg BID TAYLOR Administration Multivitamins 1 tab 05/07/20 09:00 05/07/20 10:29 Multivit, Therapeutic 1 Tab PO Not Given DAILY TAYLOR Risperidone 2 mg 05/06/20 21:00 05/06/20 21:16 Risperidone 1 Mg Tab PO Not Given HS TAYLOR - Exam General Appearance: awake alert Eye: PERRL ENT: normocephalic atraumatic Neck: supple Respiratory: CTAB Cardiovascular: RRR, irregular Gastrointestinal: soft Extremities: no cyanosis Skin: normal turgor Neurological: no focal deficits, no new deficit Musculoskeletal: normal tone, normal strength, no muscle wasting PSYCH: normal affect, normal behavior, oriented to person Results - Labs Result Diagrams: 05/07/20 04:53 05/07/20 04:53 Lab results: WBC 7.8 thou/uL (4.8-10.8) 05/07/20 04:53 Hgb 11.9 g/dL (12.0-16.0) L 05/07/20 04:53 Hct 35.4 % (36.0-47.0) L 05/07/20 04:53 MCV 89.2 fL (78.0-98.0) 05/07/20 04:53 Plt Count 240 thou/uL (130-400) 05/07/20 04:53 Neutrophils % 69.9 % (42.0-75.0) 05/07/20 04:53 Sodium 145 mmol/L (136-145) 05/07/20 04:53 Potassium 3.3 mmol/L (3.5-5.1) L 05/07/20 04:53 Chloride 105 mmol/L (98-107) 05/07/20 04:53 Carbon Dioxide 29 mmol/L (23-31) 05/07/20 04:53 BUN 11 mg/dL (9.8-20.1) 05/07/20 04:53 Creatinine 0.91 mg/dL (0.6-1.1) 05/07/20 04:53 Glucose 217 mg/dL (83-110) H 05/07/20 04:53 Calcium 9.2 mg/dL (7.8-10.44) 05/07/20 04:53 Total Bilirubin 0.5 mg/dL (0.2-1.2) 05/05/20 11:28 AST 28 U/L (5-34) 05/05/20 11:28 ALT 11 U/L (8-55) 05/05/20 11:28 Alkaline Phosphatase 57 U/L (40-110) 05/05/20 11:28 Creatine Kinase 132 U/L (29-168) 05/05/20 11:28 CK-MB (CK-2) 3.2 ng/mL (0-6.6) 05/05/20 11:28 Troponin I 0.106 ng/mL (< 0.028) H 05/05/20 18:10 B-Natriuretic Peptide 140.5 pg/mL (0-100) H 05/07/20 04:53 Serum Total Protein 7.6 g/dL (6.0-8.3) 05/05/20 11:28 Albumin 4.3 g/dL (3.4-4.8) 05/05/20 11:28 Urine Ketones Negative mg/dL (Negative) 05/05/20 12:15 Urine Blood 1+ (Negative) A 05/05/20 12:15 Urine Nitrite Negative (Negative) 05/05/20 12:15 Ur Leukocyte Esterase Negative Javier/uL (Negative) 05/05/20 12:15 Urine RBC 0-3 HPF (0-3) 05/05/20 12:15 Urine WBC 0-3 HPF (0-3) 05/05/20 12:15 Ur Squamous Epith Cells None Seen HPF (0-3) 05/05/20 12:15 Urine Bacteria None Seen HPF (None Seen) 05/05/20 12:15 - EKG Interpretation EKG: EKG showed atrial fibrillation - Radiology Interpretation MRI - head Additional Comment: MRI of the brain was negative for acute intracranial pathology. PN A/P - Plan Daily Plan: PT/OT, speech therapy, DVT proph w/SCDs Ms. Fletcher is a 79-year-old female with history significant for dementia, hyp ertension, diabetes, asthma was found down by the home health nurse and there is a concern about TIA. Patient seems to be back to her baseline MRI of the brain reviewed which was negative for acute intracranial pathology. EEG reviewed which was negative for seizure activity. 2D echo showed normal ejection fraction with no thrombus or PFO. Left ventricular ejection fraction was 55 to 60%. CTA of the head and neck did not reveal hemodynamically significant stenosis. Neurochecks every 4 hours. Strict control of blood pressure and blood glucose. Continue aspirin and high intensity statin for secondary stroke prevention. Telemetryatrial fibrillationconsider cardiology input Continue medical management per primary team. PT/OT/speech. DVT prophylaxis. Plan discussed in detail with the nursing staff.
[2020-05-07] MEDS: Aluminum & Magnesium Hydroxide 60 ML, diphenhydrAMINE 150 MG, Lidocaine 2% Viscous Solu... SSW SCH ×2 (14:02→17:30)
[2020-05-07] MEDS: Dextrose 5 % And 0.9 % NaCl 1,000 ML IV SCH (15:48)
[2020-05-07] MEDS: Latanoprost 0.005% Ophth Soln 2.5 ml Bottle EA EYE SCH (21:39)
[2020-05-07] MEDS: risperiDONE 1 MG TAB PO SCH (21:39)
[2020-05-07] MEDS: Donepezil HCl 5 MG TAB PO SCH (21:39)
[2020-05-07] MEDS: Senokot S 8.6-50 MG TAB PO PRN (21:39)
[2020-05-07] MEDS: Citalopram 10 MG TAB PO SCH (21:40)
[2020-05-07] MEDS: Atorvastatin Calcium 40 MG TAB PO SCH (21:40)
[2020-05-08] MEDS: Aluminum & Magnesium Hydroxide 60 ML, diphenhydrAMINE 150 MG, Lidocaine 2% Viscous Solu... SSW SCH ×5 (00:34→21:59)
[2020-05-08] MEDS: Dextrose 5 % And 0.9 % NaCl 1,000 ML IV SCH ×3 (01:01→22:05)
[2020-05-08 04:57] LABS: Hemoglobin A1c 5.8 % (4.0-6.0)
[2020-05-08 05:12] LABS: Lactic Acid 0.8 mmol/L (0.5-2.2)
[2020-05-08 05:19] LABS: Anion Gap 15 mmol/L (10-20); BUN (Urea Nitrogen) 11 mg/dL (9.8-20.1); Calc. Creatinine Clearance 63 mL/min (70-130); Calcium 8.9 mg/dL (7.8-10.44); Carbon Dioxide 27 mmol/L (23-31); Cardiac Risk 2.4 (Less than 4.5); Chloride 109 mmol/L (98-107); Cholesterol 137 mg/dl (< 200 Desired); Glucose 229 mg/dL (83-110); HDL Cholesterol 56 mg/dL (>60 Neg Risk); Magnesium 1.9 mg/dL (1.6-2.6); Potassium 3.9 mmol/L (3.5-5.1); Sodium 147 mmol/L (136-145)
[2020-05-08 05:30] LABS: LDL Cholesterol, Calculated 54 mg/dL
[2020-05-08 05:45] LABS: Triglycerides 116 mg/dL (Less than 150)
[2020-05-08] MEDS: HumaLOG 300 UNITS/3 ML VIAL SC PRN ×2 (06:51→10:50)
[2020-05-08] MEDS: Aspirin 325 mg Enteric Coated Tablet PO SCH (09:13)
[2020-05-08] MEDS: Multivit, Therapeutic 1 TAB PO SCH (09:13)
[2020-05-08] MEDS: Enoxaparin Sodium 80 MG/0.8 ML SYRINGE SC SCH ×2 (09:13→21:58)
[2020-05-08] MEDS: Fish Oil 1,000 MG CAP PO SCH (09:13)
[2020-05-08] MEDS: Amlodipine 5 MG TAB PO SCH (09:14)
[2020-05-08] MEDS: Ascorbic Acid 500 mg Chewable Tablet PO SCH (09:14)
[2020-05-08] MEDS: Cyanocobalamin (Vitamin B-12) 1,000 MCG TAB PO SCH (09:15)
--- NOTE | 2020-05-08 09:15 | PRG ---
DATE OF SERVICE: 05/08/2020 SUBJECTIVE: Ms. Fletcher is maintaining much better sinus rhythm. Her mental status is unchanged. She has a low-grade fever. OBJECTIVE: VITAL SIGNS: Temperature 100.2, pulse is 70, sinus. LUNGS: Clear anteriorly and laterally. CARDIAC: Normal S1. Normal S2. ASSESSMENT: 1. Paroxysmal atrial fibrillation maintaining sinus rhythm. 2. Longstanding dementia. 3. Low-grade fever. PLAN: 1. amiodarone to 400 mg twice a day. 2. When she is released to go to amiodarone 400 mg once a day for 30 days, then 200 mg a day. Job ID: [id number]
[2020-05-08] MEDS: Lisinopril 10 MG TAB PO SCH (09:16)
[2020-05-08] MEDS: Metoprolol Tartrate 25 MG TAB PO SCH ×2 (09:16→21:59)
[2020-05-08] MEDS: Ferrous Sulfate 325 MG TAB PO SCH (09:16)
--- NOTE | 2020-05-08 09:16 | PDOC.HOSPP ---
- Objective Vital Signs & Weight: Vital Signs (12 hours) Temp Pulse Resp BP Pulse Ox 05/08/20 07:38 98.3 F 71 18 145/71 H 96 05/08/20 04:00 99.4 F 82 16 157/91 H 93 L 05/08/20 00:31 93 L 05/07/20 23:28 100.2 F H 77 16 172/83 H 93 L Weight Weight 168 lb 14.4 oz I&O: 05/07/20 05/08/20 05/09/20 06:59 06:59 06:59 Intake Total 909 688 Balance 909 688 Result Diagrams: 05/07/20 04:53 05/08/20 04:35 Additional Labs: Accuchecks 05/08/20 05/07/20 05/07/20 06:20 21:22 16:35 POC Glucose 206 H 172 H 203 H 05/07/20 10:30 POC Glucose 160 H Hospitalist ROS - Medication Medications: Active Medications Generic Name Dose Route Start Last Admin Trade Name Freq PRN Reason Stop Dose Admin Acetaminophen 650 mg 05/06/20 05:23 05/06/20 05:40 Acetaminophen 650 Mg Suppository [place] 650 mg Q4H PRN Administration Headache/Fever/Mild Pain (1-3) Ascorbic Acid 500 mg 05/07/20 09:00 05/07/20 10:29 Ascorbic Acid 500 Mg Chewable Tablet PO 500 mg DAILY TAYLOR Administration Aspirin 325 mg 05/06/20 09:00 05/07/20 10:29 Aspirin 325 Mg Enteric Coated Tablet PO 325 mg DAILY TAYLOR Administration Atorvastatin Calcium 40 mg 05/05/20 21:00 05/07/20 21:40 Atorvastatin Calcium 40 Mg Tab PO 40 mg HS TAYLOR Administration Citalopram Hydrobromide 10 mg 05/06/20 21:00 05/07/20 21:40 Citalopram 10 Mg Tab PO 10 mg HS TAYLOR Administration Al Hydroxide/Mg Hydroxide 60 0 ml 05/07/20 11:30 05/08/20 00:34 ml/ Diphenhydramine HCl 150 mg SSW 10 ml / Lidocaine HCl 60 ml/ ACHS TAYLOR Administration Nystatin 6,000,000 units Cyanocobalamin 500 mcg 05/07/20 09:00 05/07/20 10:30 Cyanocobalamin (Vitamin B-12) 1,000 Mcg Tab PO 500 mcg DAILY TAYLOR Administration Donepezil HCl 5 mg 05/06/20 21:00 05/07/20 21:39 Donepezil Hcl 5 Mg Tab PO 5 mg HS TAYLOR Administration Enoxaparin Sodium 80 mg 05/06/20 09:00 05/07/20 21:38 Enoxaparin Sodium 80 Mg/0.8 Ml Syringe SC 80 mg 0900,2100 TAYLOR Administration Ferrous Sulfate 325 mg 05/07/20 08:00 05/07/20 10:29 Ferrous Sulfate 325 Mg Tab PO 325 mg QAM-WM TAYLOR Administration Fish Oil 1,000 mg 05/07/20 09:00 05/07/20 11:03 Fish Oil 1,000 Mg Cap PO Not Given DAILY TAYLOR Dextrose/Sodium Chloride 1,000 mls @ 75 mls/hr 05/05/20 16:57 05/08/20 06:51 D5 0.9% Ns IV 1,000 mls .[id number] TAYLOR Administration Insulin Human Lispro 0 units 05/05/20 16:57 05/08/20 06:51 Humalog 300 Units/3 Ml Vial SC 4 unit .MODERATE SLIDING SC PRN Administration Moderate Correctional Scale Latanoprost 1 drop 05/06/20 21:00 05/07/20 21:39 Latanoprost 0.005% Ophth Soln 2.5 Ml Bottle EA EYE 1 drop HS TAYLOR Administration Lisinopril 10 mg 05/07/20 09:00 05/07/20 10:29 Lisinopril 10 Mg Tab PO 10 mg DAILY TAYLOR Administration Metoprolol Tartrate 25 mg 05/05/20 21:00 05/07/20 21:39 Metoprolol Tartrate 25 Mg Tab PO 25 mg BID TAYLOR Administration Multivitamins 1 tab 05/07/20 09:00 05/07/20 10:29 Multivit, Therapeutic 1 Tab PO Not Given DAILY TAYLOR Risperidone 2 mg 05/06/20 21:00 05/07/20 21:39 Risperidone 1 Mg Tab PO 2 mg HS TAYLOR Administration Senna/Docusate Sodium 2 tab 05/05/20 16:57 05/07/20 21:39 Senokot S 8.6-50 Mg Tab PO 2 tab BID PRN Administration Constipation Hosp A/P - Plan This is a 79 years old female who has significant past medical history of hypertension, diabetes, asthma , who was found down by home health nurse. It was reported that patient was slightly combative upon arrival. Her pulse irregu lar. She had no history of atrial fib. She was subsequently admitted for further stroke work-up given altered mental status. Chart reviewed. She remains in atrial fib, unknown chronicity, rate is controlled. MRI is pending. Her troponins mildly elevated. Her 2D echo showed preserved EF, otherwise unremarkable. She denies any chest pain. low grade fever note with slightly hypoxic on room air, that now resolved Altered mental status - likely d/t arrhythmias caused syncopal episode --stroke workup/EEG negative. --cont supportive cares. cont PT. mental status returned to baseline. Atrial fib, rate controlled -spontaneously converted back to normal sinus rhythm --Paroxysmal. Echo reviewed. Appreciate cardiology input --Cont B beta-tremaine, amiodarone. Lovenox for now, transition to oral anticoagulation when tolerated PO well --replaced lytes. DM 2 --check A1C, ISS. Hold metformin d/t contrast studies HTN --cont BB, norvasc added by cardiology Dysplipidemia --Well controlled, LDL 66. Continue statin Dementia --Without behavioral disturbances. Continue supportive care. Resume Aricept Dispo: Swing bed. d/w CM/pt's on.
[2020-05-08] MEDS: Amiodarone 200 MG TAB PO SCH ×2 (09:17→21:59)
[2020-05-08] MEDS ORDERED: Amiodarone 200 MG TAB PO SCH (09:30)
--- NOTE | 2020-05-08 11:42 | RAD ---
CHEST: Date: 05/08/2020 COMPARISON: CTA chest 05/06/2020. HISTORY: History of being found down with fever and possible aspiration pneumonia. FINDINGS: Single view of the chest shows an enlarged cardiomediastinal silhouette. There is no evidence of cons olidation, mass, or pleural effusion. Degenerative changes are seen in the spine. IMPRESSION: No evidence of acute cardiopulmonary disease. POS: EAA
--- NOTE | 2020-05-08 14:58 | PDOC.HOSPP ---
- Subjective Subjective: Seen examined at bedside. No acute events overnight. Patient had a low-grade fever 100.2. She still eating very little, and lethargic. She has converted back to normal sinus rhythm. Discussed with cardiology. - Objective Vital Signs & Weight: Vital Signs (12 hours) Temp Pulse Pulse Pulse Resp BP BP 05/08/20 13:25 72 16 05/08/20 10:29 70 66 153/90 H 149/89 H 05/08/20 10:24 98.0 F 76 15 05/08/20 09:14 71 05/08/20 07:38 98.3 F 71 18 05/08/20 04:00 99.4 F 82 16 BP Pulse Ox 05/08/20 13:25 05/08/20 10:29 05/08/20 10:24 160/68 H 96 05/08/20 09:14 05/08/20 07:38 145/71 H 96 05/08/20 04:00 157/91 H 93 L Weight Weight 168 lb 14.4 oz I&O: 05/07/20 05/08/20 05/09/20 06:59 06:59 06:59 Intake Total 909 688 Balance 909 688 Result Diagrams: 05/07/20 04:53 05/08/20 04:35 Additional Labs: Accuchecks 05/08/20 05/08/20 05/07/20 10:23 06:20 21:22 POC Glucose 251 H 206 H 172 H 05/07/20 16:35 POC Glucose 203 H Radiology Reviewed by me: Yes EKG Reviewed by me: Yes Hospitalist ROS - Medication Medications: Active Medications Generic Name Dose Route Start Last Admin Trade Name Freq PRN Reason Stop Dose Admin Acetaminophen 650 mg 05/06/20 05:23 05/06/20 05:40 Acetaminophen 650 Mg Suppository [place] 650 mg Q4H PRN Administration Headache/Fever/Mild Pain (1-3) Albuterol/Ipratropium 3 ml 05/08/20 13:00 05/08/20 13:25 Ipratropium/Albuterol Sulfate 3 Ml Neb NEB 3 ml [id number] TAYLOR Administration Amlodipine Besylate 2.5 mg 05/08/20 09:00 05/08/20 09:14 Amlodipine 5 Mg Tab PO 2.5 mg DAILY TAYLOR Administration Ascorbic Acid 500 mg 05/07/20 09:00 05/08/20 09:14 Ascorbic Acid 500 Mg Chewable Tablet PO 500 mg DAILY TAYLOR Administration Aspirin 325 mg 05/06/20 09:00 05/08/20 09:13 Aspirin 325 Mg Enteric Coated Tablet PO 325 mg DAILY TAYLOR Administration Atorvastatin Calcium 40 mg 05/05/20 21:00 05/07/20 21:40 Atorvastatin Calcium 40 Mg Tab PO 40 mg HS TAYLOR Administration Citalopram Hydrobromide 10 mg 05/06/20 21:00 05/07/20 21:40 Citalopram 10 Mg Tab PO 10 mg HS TAYLOR Administration Al Hydroxide/Mg Hydroxide 60 0 ml 05/07/20 11:30 05/08/20 10:52 ml/ Diphenhydramine HCl 150 mg SSW 10 ml / Lidocaine HCl 60 ml/ ACHS TAYLOR Administration Nystatin 6,000,000 units Cyanocobalamin 500 mcg 05/07/20 09:00 05/08/20 09:15 Cyanocobalamin (Vitamin B-12) 1,000 Mcg Tab PO 500 mcg DAILY TAYLOR Administration Donepezil HCl 5 mg 05/06/20 21:00 05/07/20 21:39 Donepezil Hcl 5 Mg Tab PO 5 mg HS TYALOR Administration Enoxaparin Sodium 80 mg 05/06/20 09:00 05/08/20 09:13 Enoxaparin Sodium 80 Mg/0.8 Ml Syringe SC 80 mg 899,2099 TAYLOR Administration Ferrous Sulfate 325 mg 05/07/20 08:00 05/08/20 09:16 Ferrous Sulfate 325 Mg Tab PO 325 mg QAM-WM TAYLOR Administration Fish Oil 1,000 mg 05/07/20 09:00 05/08/20 09:13 Fish Oil 1,000 Mg Cap PO 1,000 mg DAILY TAYLOR Administration Dextrose/Sodium Chloride 1,000 mls @ 75 mls/hr 05/05/20 16:57 05/08/20 06:51 D5 0.9% Ns IV 1,000 mls .[id number] TAYLOR Administration Insulin Human Lispro 0 units 05/05/20 16:57 05/08/20 10:50 Humalog 300 Units/3 Ml Vial SC 6 unit .MODERATE SLIDING SC PRN Administration Moderate Correctional Scale Latanoprost 1 drop 05/06/20 21:00 05/07/20 21:39 Latanoprost 0.005% Ophth Soln 2.5 Ml Bottle EA EYE 1 drop HS TAYLOR Administration Lisinopril 10 mg 05/07/20 09:00 05/08/20 09:16 Lisinopril 10 Mg Tab PO 10 mg DAILY TAYLOR Administration Metoprolol Tartrate 25 mg 05/05/20 21:00 05/08/20 09:16 Metoprolol Tartrate 25 Mg Tab PO 25 mg BID TAYLOR Administration Multivitamins 1 tab 05/07/20 09:00 05/08/20 09:13 Multivit, Therapeutic 1 Tab PO 1 tab DAILY TAYLOR Administration Risperidone 2 mg 05/06/20 21:00 05/07/20 21:39 Risperidone 1 Mg Tab PO 2 mg HS TAYLOR Administration Senna/Docusate Sodium 2 tab 05/05/20 16:57 05/07/20 21:39 Senokot S 8.6-50 Mg Tab PO 2 tab BID PRN Administration Constipation - Exam General Appearance: NAD Eye: PERRL ENT: normocephalic atraumatic Neck: supple, symmetric Heart: RRR, no murmur Respiratory: CTAB Gastrointestinal: soft, non-tender Extremities: no cyanosis Skin: normal turgor Neurological: cranial nerve grossly intact Musculoskeletal: normal tone Psychiatric: normal affect, normal behavior, oriented to person, somnolent, lethargic Hosp A/P - Plan This is a 79 years old female who has significant past medical history of hypertension, diabetes, asthma , who was found down by home health nurse. It was reported that patient was slightly combative upon arrival. Her pulse irregu lar. She had no history of atrial fib. She was subsequently admitted for further stroke work-up given altered mental status. Chart reviewed. She remains in atrial fib, unknown chronicity, rate is controlled. MRI is pending. Her troponins mildly elevated. Her 2D echo showed preserved EF, otherwise unremarkable. She denies any chest pain. low grade fever note with slightly hypoxic on room air, that now resolved Fever - low grade 100.2, slightly hypoxic on room air --since pt was found down, concern she may aspirated --will rpt 2V CXR, send cultures. Hold off on abx for now. Observe her over the weekend, transfer to [facility] on Monday if stable. --covid negative. Altered mental status - likely d/t arrhythmias caused syncopal episode --stroke workup/EEG negative. --cont supportive cares. cont PT. mental status returned to baseline. Atrial fib, rate controlled - spontaneously converted back to normal sinus rhythm --Paroxysmal. Echo reviewed. Appreciate cardiology input --Cont B beta-tremaine, amiodarone as per cardiology. Lovenox for now, transition to oral anticoagulation when tolerated PO well --replaced lytes. DM 2 --A1C 5.8, ISS. Hold metformin d/t contrast studies HTN --cont BB, norvasc added by cardiology Dysplipidemia --Well controlled, LDL 66. Continue statin Dementia --Without behavioral disturbances. Continue supportive care. Resume Aricept Dispo: Swing bed when medically ready. d/w CM/pt's on.
[2020-05-08] MEDS: Atorvastatin Calcium 40 MG TAB PO SCH (21:58)
[2020-05-08] MEDS: Citalopram 10 MG TAB PO SCH (21:58)
[2020-05-08] MEDS: risperiDONE 1 MG TAB PO SCH (21:59)
[2020-05-08] MEDS: Latanoprost 0.005% Ophth Soln 2.5 ml Bottle EA EYE SCH (21:59)
[2020-05-08] MEDS: Donepezil HCl 5 MG TAB PO SCH (21:59)
[2020-05-08] MEDS: Senokot S 8.6-50 MG TAB PO PRN (22:13)
[2020-05-09 05:10] LABS: #Eosinphils 0.4 thou/uL (0.0-0.7); #Lymphocytes 1.5 thou/uL (1.20-3.40); #Monocytes 0.8 thou/uL (0.11-0.59); #Neutrophils 3.8 thou/uL (1.40-6.50); %Basophils 0.4 % (0.0-1.0); %Eosinophils 5.4 % (0.0-10.0); %Lymphocytes 22.5 % (21.0-51.0); %Monocytes 12.8 % (0.0-10.0); %Neutrophils 58.8 % (42.0-75.0); Mean Corpuscular HGB CONC 33.4 g/dL (32.0-36.0); Mean Corpuscular Hemoglobin 29.9 pg (27.0-31.0); Mean Corpuscular Volume 89.4 fL (78.0-98.0); Mean Platelet Volume 9.1 fL (7.4-10.4); Platelet Count 231 thou/uL (130-400); RBC Distribution Width 12.4 % (11.5-14.5); Red Blood Cell (RBC) Count 3.69 mill/uL (4.20-5.40); White Blood Cell (WBC) Count 6.5 thou/uL (4.8-10.8)
[2020-05-09 05:51] LABS: ALT (SGPT) 15 U/L (8-55); AST (SGOT) 23 U/L (5-34); Albumin 3.5 g/dL (3.4-4.8); Alkaline Phosphatase 45 U/L (40-110); Anion Gap 13 mmol/L (10-20); BUN (Urea Nitrogen) 11 mg/dL (9.8-20.1); Bilirubin, Total 0.6 mg/dL (0.2-1.2); CRP (Inflammatory) 0.54 mg/dL (= or < 0.5); Calc. Creatinine Clearance 60 mL/min (70-130); Calcium 8.7 mg/dL (7.8-10.44); Carbon Dioxide 30 mmol/L (23-31); Chloride 111 mmol/L (98-107); Globulin 2.7 g/dL (2.4-3.5); Glucose 223 mg/dL (83-110); Potassium 3.5 mmol/L (3.5-5.1); Protein, Total 6.2 g/dL (6.0-8.3); Sodium 150 mmol/L (136-145)
[2020-05-09] MEDS: Aluminum & Magnesium Hydroxide 60 ML, diphenhydrAMINE 150 MG, Lidocaine 2% Viscous Solu... SSW SCH ×5 (10:20→23:40)
[2020-05-09] MEDS: Amlodipine 5 MG TAB PO SCH (10:20)
[2020-05-09] MEDS: Dextrose 5 % And 0.9 % NaCl 1,000 ML IV SCH (10:20)
[2020-05-09] MEDS: Ascorbic Acid 500 mg Chewable Tablet PO SCH (10:22)
[2020-05-09] MEDS: Ferrous Sulfate 325 MG TAB PO SCH (10:22)
[2020-05-09] MEDS: Aspirin 325 mg Enteric Coated Tablet PO SCH (10:22)
[2020-05-09] MEDS: Cyanocobalamin (Vitamin B-12) 1,000 MCG TAB PO SCH (10:23)
[2020-05-09] MEDS: Amiodarone 200 MG TAB PO SCH ×2 (10:23→23:39)
[2020-05-09] MEDS: Fish Oil 1,000 MG CAP PO SCH (10:23)
[2020-05-09] MEDS: Metoprolol Tartrate 25 MG TAB PO SCH ×2 (10:23→23:38)
[2020-05-09] MEDS: Multivit, Therapeutic 1 TAB PO SCH (10:23)
[2020-05-09] MEDS: Lisinopril 10 MG TAB PO SCH (10:23)
[2020-05-09] MEDS: Enoxaparin Sodium 80 MG/0.8 ML SYRINGE SC SCH (10:24)
[2020-05-09] MEDS: HumaLOG 300 UNITS/3 ML VIAL SC PRN ×2 (12:23→17:48)
--- NOTE | 2020-05-09 14:37 | PDOC.HOSPP ---
- Subjective Encounter Date: 05/09/20 Encounter Time: 10:30 Subjective: Patient being helped by physical therapy; she is on wheelchair. No acute complaints noted. - Objective Vital Signs & Weight: Vital Signs (12 hours) Temp Pulse Pulse Resp BP BP BP 05/09/20 13:15 83 15 05/09/20 11:22 98.7 F 60 16 05/09/20 10:20 70 165/89 H 05/09/20 09:00 65 173/83 H 178/96 H 05/09/20 07:30 98.2 F 67 18 05/09/20 06:52 78 10 L 05/09/20 03:29 98.3 F 71 14 BP BP Pulse Ox 05/09/20 13:15 05/09/20 11:22 152/83 H 96 05/09/20 10:20 05/09/20 09:00 165/81 H 05/09/20 07:30 155/83 H 94 L 05/09/20 06:52 05/09/20 03:29 173/78 H 92 L Weight Weight 168 lb 14.4 oz I&O: 05/08/20 05/09/20 05/10/20 06:59 06:59 06:59 Intake Total 688 1183 Balance 688 1183 Result Diagrams: 05/09/20 04:35 05/09/20 04:35 Additional Labs: Accuchecks 05/09/20 05/09/20 05/08/20 10:31 05:03 21:13 POC Glucose 237 H 213 H 185 H 05/08/20 16:49 POC Glucose 120 H Hospitalist ROS - Medication Medications: Active Medications Generic Name Dose Route Start Last Admin Trade Name Freq PRN Reason Stop Dose Admin Acetaminophen 650 mg 05/06/20 05:23 05/06/20 05:40 Acetaminophen 650 Mg Suppository MA 650 mg Q4H PRN Administration Headache/Fever/Mild Pain (1-3) Albuterol/Ipratropium 3 ml 05/08/20 13:00 05/09/20 13:15 Ipratropium/Albuterol Sulfate 3 Ml Neb NEB 3 ml [id number] TAYLOR Administration Amiodarone HCl 400 mg 05/08/20 21:00 05/09/20 10:23 Amiodarone 200 Mg Tab PO 400 mg BID TAYLOR Administration Amlodipine Besylate 2.5 mg 05/08/20 09:00 05/09/20 10:20 Amlodipine 5 Mg Tab PO 2.5 mg DAILY TAYLOR Administration Ascorbic Acid 500 mg 05/07/20 09:00 05/09/20 10:22 Ascorbic Acid 500 Mg Chewable Tablet PO 500 mg DAILY TAYLOR Administration Aspirin 325 mg 05/06/20 09:00 05/09/20 10:22 Aspirin 325 Mg Enteric Coated Tablet PO 325 mg DAILY TAYLOR Administration Atorvastatin Calcium 40 mg 05/05/20 21:00 05/08/20 21:58 Atorvastatin Calcium 40 Mg Tab PO 40 mg HS TAYLOR Administration Citalopram Hydrobromide 10 mg 05/06/20 21:00 05/08/20 21:58 Citalopram 10 Mg Tab PO 10 mg HS TAYLOR Administration Al Hydroxide/Mg Hydroxide 60 0 ml 05/07/20 11:30 05/09/20 13:03 ml/ Diphenhydramine HCl 150 mg SSW 10 ml / Lidocaine HCl 60 ml/ ACHS TAYLOR Administration Nystatin 6,000,000 units Cyanocobalamin 500 mcg 05/07/20 09:00 05/09/20 10:23 Cyanocobalamin (Vitamin B-12) 1,000 Mcg Tab PO 500 mcg DAILY TAYLOR Administration Donepezil HCl 5 mg 05/06/20 21:00 05/08/20 21:59 Donepezil Hcl 5 Mg Tab PO 5 mg HS TAYLOR Administration Enoxaparin Sodium 80 mg 05/06/20 09:00 05/09/20 10:24 Enoxaparin Sodium 80 Mg/0.8 Ml Syringe SC 80 mg 0900,2100 TAYLOR Administration Ferrous Sulfate 325 mg 05/07/20 08:00 05/09/20 10:22 Ferrous Sulfate 325 Mg Tab PO 325 mg QAM-WM TAYLOR Administration Fish Oil 1,000 mg 05/07/20 09:00 05/09/20 10:23 Fish Oil 1,000 Mg Cap PO 1,000 mg DAILY TAYLOR Administration Dextrose/Sodium Chloride 1,000 mls @ 75 mls/hr 05/05/20 16:57 05/09/20 10:20 D5 0.9% Ns IV 1,000 mls .[id number] TAYLOR Administration Insulin Human Lispro 0 units 05/05/20 16:57 05/09/20 12:23 Humalog 300 Units/3 Ml Vial SC 4 unit .MODERATE SLIDING SC PRN Administration Moderate Correctional Scale Latanoprost 1 drop 05/06/20 21:00 05/08/20 21:59 Latanoprost 0.005% Ophth Soln 2.5 Ml Bottle EA EYE 1 drop HS TAYLOR Administration Lisinopril 10 mg 05/07/20 09:00 05/09/20 10:23 Lisinopril 10 Mg Tab PO 10 mg DAILY TAYLOR Administration Loratadine 10 mg 05/05/20 16:57 05/08/20 22:13 Loratadine 10 Mg Tab PO 10 mg DAILYPRN PRN Administration Sinus Symptoms Metoprolol Tartrate 25 mg 05/05/20 21:00 05/09/20 10:23 Metoprolol Tartrate 25 Mg Tab PO 25 mg BID TAYLOR Administration Multivitamins 1 tab 05/07/20 09:00 05/09/20 10:23 Multivit, Therapeutic 1 Tab PO 1 tab DAILY TAYLOR Administration Risperidone 2 mg 05/06/20 21:00 05/08/20 21:59 Risperidone 1 Mg Tab PO 2 mg HS TAYLOR Administration Senna/Docusate Sodium 2 tab 05/05/20 16:57 05/08/20 22:13 Senokot S 8.6-50 Mg Tab PO 2 tab BID PRN Administration Constipation - Exam General Appearance: NAD, awake alert Eye: PERRL ENT: normocephalic atraumatic Neck: supple Heart: irregular Respiratory: CTAB, normal chest expansion Gastrointestinal: soft, normal bowel sounds Neurological: cranial nerve grossly intact Psychiatric: A&O x 3 Hosp A/P - Plan 79 years old female who has significant past medical history of hypertension, diabetes, asthma , who was found down by home health nurse. It was reported that patient was slightly combative upon arrival. Her pulse irregular. She had no history of atrial fib. -stroke work-up given altered mental status. Her 2D echo showed preserved EF, otherwise unremarkable. She denies any chest pain. low grade fever note with slightly hypoxic on room air, that now resolved -Patient MRI negative for acute intracranial abnormality carotid Dopplers negative CT angiogram also negative. Electroencephalogram unremarkable. Fever - low grade 100.2, slightly hypoxic on room air --since pt was found down, concern she may aspirated --will rpt 2V CXR, send cultures. -Observe her over the weekend, transfer to [facility] on Monday if stable. --covid negative. Altered mental status - likely d/t arrhythmias caused syncopal episode --stroke workup/EEG negative. --cont supportive cares. cont PT. mental status returned to baseline. Atrial fib, rate controlled - spontaneously converted back to normal sinus rhythm --Paroxysmal. Echo reviewed. Appreciate cardiology input --Cont B beta-tremaine, amiodarone as per cardiology. Lovenox for now, transition to oral anticoagulation when tolerated PO well --replaced lytes. DM 2 --A1C 5.8, ISS. Hold metformin d/t contrast studies HTN --cont BB, norvasc added by cardiology Dysplipidemia --Well controlled, LDL 66. Continue statin Dementia --Without behavioral disturbances. Continue supportive care. Resume Arice[facility] Dispo: Swing bed when medically ready. Plan to discharge him with amiodarone 400 mg twice a day for 7 days and then daily for 30 days and then transition to 200 mg daily after that. Echo showed EF EF of 60% and no wall motion abnormality, will place her on Eliquis twice daily and transition from Lovenox twice a day dose. Probable discharge to [facility] on Monday.
[2020-05-09] MEDS ORDERED: Dextrose 5% in Water 1,000 ML IV PRN (15:11)
[2020-05-09] MEDS ORDERED: Dextrose 50% Abboject 50 ML SYRINGE SLOW IVP PRN (15:11)
[2020-05-09] MEDS: Senokot S 8.6-50 MG TAB PO PRN (23:38)
[2020-05-09] MEDS: risperiDONE 1 MG TAB PO SCH (23:38)
[2020-05-09] MEDS: Apixaban 5 MG TAB PO SCH (23:39)
[2020-05-09] MEDS: Donepezil HCl 5 MG TAB PO SCH (23:39)
[2020-05-09] MEDS: Citalopram 10 MG TAB PO SCH (23:39)
[2020-05-09] MEDS: Atorvastatin Calcium 40 MG TAB PO SCH (23:39)
[2020-05-09] MEDS: Latanoprost 0.005% Ophth Soln 2.5 ml Bottle EA EYE SCH (23:41)
[2020-05-10 09:18] LABS: #Basophils 0.1 thou/uL (0.0-0.2); #Eosinphils 0.4 thou/uL (0.0-0.7); #Lymphocytes 1.6 thou/uL (1.20-3.40); #Neutrophils 5.5 thou/uL (1.40-6.50); %Basophils 0.6 % (0.0-1.0); %Eosinophils 4.2 % (0.0-10.0); %Lymphocytes 18.6 % (21.0-51.0); %Monocytes 11.2 % (0.0-10.0); %Neutrophils 65.4 % (42.0-75.0); Mean Corpuscular HGB CONC 33.5 g/dL (32.0-36.0); Mean Corpuscular Hemoglobin 29.6 pg (27.0-31.0); Mean Corpuscular Volume 88.4 fL (78.0-98.0); Platelet Count 228 thou/uL (130-400); RBC Distribution Width 12.4 % (11.5-14.5); Red Blood Cell (RBC) Count 3.71 mill/uL (4.20-5.40); White Blood Cell (WBC) Count 8.4 thou/uL (4.8-10.8)
[2020-05-10] MEDS: Aluminum & Magnesium Hydroxide 60 ML, diphenhydrAMINE 150 MG, Lidocaine 2% Viscous Solu... SSW SCH ×4 (09:36→22:52)
[2020-05-10] MEDS: Apixaban 5 MG TAB PO SCH ×2 (09:37→22:51)
[2020-05-10] MEDS: Aspirin 81 mg Enteric Coated Tablet PO SCH (09:37)
[2020-05-10] MEDS: Amiodarone 200 MG TAB PO SCH ×2 (09:37→22:50)
[2020-05-10] MEDS: Multivit, Therapeutic 1 TAB PO SCH (09:37)
[2020-05-10] MEDS: Fish Oil 1,000 MG CAP PO SCH (09:37)
[2020-05-10] MEDS: Ferrous Sulfate 325 MG TAB PO SCH (09:38)
[2020-05-10] MEDS: Ascorbic Acid 500 mg Chewable Tablet PO SCH (09:38)
[2020-05-10] MEDS: Lisinopril 10 MG TAB PO SCH (09:38)
[2020-05-10] MEDS: Amlodipine 5 MG TAB PO SCH (09:38)
[2020-05-10] MEDS: Cyanocobalamin (Vitamin B-12) 1,000 MCG TAB PO SCH (09:38)
[2020-05-10] MEDS: Metoprolol Tartrate 25 MG TAB PO SCH ×2 (09:38→22:50)
[2020-05-10 09:44] LABS: Anion Gap 15 mmol/L (10-20); BUN (Urea Nitrogen) 12 mg/dL (9.8-20.1); Calc. Creatinine Clearance 59 mL/min (70-130); Carbon Dioxide 29 mmol/L (23-31); Chloride 111 mmol/L (98-107); Glucose 197 mg/dL (83-110); Potassium 3.5 mmol/L (3.5-5.1); Sodium 151 mmol/L (136-145)
--- NOTE | 2020-05-10 12:31 | PDOC.HOSPP ---
- Subjective Encounter Date: 05/10/20 Encounter Time: 09:10 Subjective: Patient is sleeping. On awakening she is able to follow only minimal commands.. she looks quite lethargic. - Objective Vital Signs & Weight: Vital Signs (12 hours) Temp Pulse Resp BP Pulse Ox 05/10/20 11:47 99.4 F 66 16 145/81 H 93 L 05/10/20 09:38 73 05/10/20 09:29 98.5 F 73 16 168/93 H 93 L 05/10/20 08:00 93 L 05/10/20 06:43 65 16 05/10/20 04:44 99.4 F 62 24 H 160/83 H 92 L Weight Weight 168 lb 14.4 oz I&O: 05/09/20 05/10/20 05/11/20 06:59 06:59 06:59 Intake Total 1183 1185 598 Balance 1183 1185 598 Result Diagrams: 05/10/20 08:55 05/10/20 08:55 Additional Labs: Accuchecks 05/10/20 05/10/20 05/09/20 12:21 06:41 23:35 POC Glucose 262 H 178 H 179 H 05/09/20 16:47 POC Glucose 160 H Hospitalist ROS - Medication Medications: Active Medications Generic Name Dose Route Start Last Admin Trade Name Freq PRN Reason Stop Dose Admin Acetaminophen 650 mg 05/06/20 05:23 05/06/20 05:40 Acetaminophen 650 Mg Suppository PA 650 mg Q4H PRN Administration Headache/Fever/Mild Pain (1-3) Albuterol/Ipratropium 3 ml 05/08/20 13:00 05/10/20 06:43 Ipratropium/Albuterol Sulfate 3 Ml Neb NEB 3 ml [id number] TAYLOR Administration Amiodarone HCl 400 mg 05/08/20 21:00 05/10/20 09:37 Amiodarone 200 Mg Tab PO 400 mg BID TAYLOR Administration Amlodipine Besylate 2.5 mg 05/08/20 09:00 05/10/20 09:38 Amlodipine 5 Mg Tab PO 2.5 mg DAILY TAYLOR Administration Apixaban 5 mg 05/09/20 21:00 05/10/20 09:37 Apixaban 5 Mg Tab PO 5 mg BID TAYLOR Administration Ascorbic Acid 500 mg 05/07/20 09:00 05/10/20 09:38 Ascorbic Acid 500 Mg Chewable Tablet PO 500 mg DAILY TAYLOR Administration Aspirin 81 mg 05/10/20 09:00 05/10/20 09:37 Aspirin 81 Mg Enteric Coated Tablet PO 81 mg DAILY TAYLOR Administration Atorvastatin Calcium 40 mg 05/05/20 21:00 05/09/20 23:39 Atorvastatin Calcium 40 Mg Tab PO 40 mg HS TAYLOR Administration Citalopram Hydrobromide 10 mg 05/06/20 21:00 05/09/20 23:39 Citalopram 10 Mg Tab PO 10 mg HS TAYLOR Administration Al Hydroxide/Mg Hydroxide 60 0 ml 05/07/20 11:30 05/10/20 09:36 ml/ Diphenhydramine HCl 150 mg SSW 10 ml / Lidocaine HCl 60 ml/ ACHS TAYLOR Administration Nystatin 6,000,000 units Cyanocobalamin 500 mcg 05/07/20 09:00 05/10/20 09:38 Cyanocobalamin (Vitamin B-12) 1,000 Mcg Tab PO 500 mcg DAILY TAYLOR Administration Donepezil HCl 5 mg 05/06/20 21:00 05/09/20 23:39 Donepezil Hcl 5 Mg Tab PO 5 mg HS TAYLOR Administration Ferrous Sulfate 325 mg 05/07/20 08:00 05/10/20 09:38 Ferrous Sulfate 325 Mg Tab PO 325 mg QAM-WM TAYLOR Administration Fish Oil 1,000 mg 05/07/20 09:00 05/10/20 09:37 Fish Oil 1,000 Mg Cap PO 1,000 mg DAILY TAYLOR Administration Insulin Human Lispro 0 units 05/09/20 15:11 05/09/20 17:48 Humalog 300 Units/3 Ml Vial SC 2 unit .MILD SLIDING SCALE PRN Administration Mild Correctional Scale Latanoprost 1 drop 05/06/20 21:00 05/09/20 23:41 Latanoprost 0.005% Ophth Soln 2.5 Ml Bottle EA EYE 1 drop HS TAYLOR Administration Lisinopril 10 mg 05/07/20 09:00 05/10/20 09:38 Lisinopril 10 Mg Tab PO 10 mg DAILY TAYLOR Administration Loratadine 10 mg 05/05/20 16:57 05/08/20 22:13 Loratadine 10 Mg Tab PO 10 mg DAILYPRN PRN Administration Sinus Symptoms Metoprolol Tartrate 25 mg 05/05/20 21:00 05/10/20 09:38 Metoprolol Tartrate 25 Mg Tab PO 25 mg BID TAYLOR Administration Multivitamins 1 tab 05/07/20 09:00 05/10/20 09:37 Multivit, Therapeutic 1 Tab PO 1 tab DAILY TAYLOR Administration Risperidone 2 mg 05/06/20 21:00 05/09/20 23:38 Risperidone 1 Mg Tab PO 2 mg HS TAYLOR Administration Senna/Docusate Sodium 2 tab 05/05/20 16:57 05/09/20 23:38 Senokot S 8.6-50 Mg Tab PO 2 tab BID PRN Administration Constipation - Exam General Appearance: NAD, awake alert General - other findings: Right facial droop Eye: PERRL ENT: normocephalic atraumatic Neck: supple Heart: RRR Respiratory: CTAB, normal chest expansion Neurological: no new deficit, facial droop Neurological - other findings: She is not able to follow the commands to assess her strength Musculoskeletal: generalized weakness Psychiatric: oriented to person Hosp A/P - Plan 79 years old female who has significant past medical history of hypertension, diabetes, asthma , who was found down by home health nurse. It was reported that patient was slightly combative upon arrival. Her pulse irregular. She had no history of atrial fib. -stroke work-up given altered mental status. Her 2D echo showed preserved EF, otherwise unremarkable. She denies any chest pain. low grade fever note with slightly hypoxic on room air, that now resolved -Patient MRI negative for acute intracranial abnormality carotid Dopplers negative CT angiogram also negative. Electroencephalogram unremarkable. Fever - low grade 100.2, slightly hypoxic on room air --since pt was found down, concern she may aspirated --will rpt 2V CXR, send cultures. -Observe her over the weekend, transfer to [facility] on Monday if stable. --covid negative. Altered mental status - likely d/t arrhythmias caused syncopal episode --stroke workup/EEG negative. --cont supportive cares. cont PT. mental status returned to baseline. Atrial fib, rate controlled - spontaneously converted back to normal sinus rhythm --Paroxysmal. Echo reviewed. Appreciate cardiology input --Cont B beta-tremaine, amiodarone as per cardiology. Lovenox for now, transition to oral anticoagulation when tolerated PO well --replaced lytes. DM 2 --A1C 5.8, ISS. Hold metformin d/t contrast studies HTN --cont BB, norvasc added by cardiology Dysplipidemia --Well controlled, LDL 66. Continue statin Dementia --Without behavioral disturbances. Continue supportive care. Resume Aricept Dispo: Swing bed when medically ready. Plan to discharge him with amiodarone 400 mg twice a day for 7 days and then daily for 30 days and then transition to 200 mg daily after that. Echo showed EF EF of 60% and no wall motion abnormality, will place her on Eliquis twice daily and transition from Lovenox twice a day dose. Not able to evaluate her neurologically as she is not following commands, she has mild right-sided facial droop. Probable discharge to [place] on Monday.
[2020-05-10] MEDS: HumaLOG 300 UNITS/3 ML VIAL SC PRN (12:41)
[2020-05-10] MEDS: Atorvastatin Calcium 40 MG TAB PO SCH (22:50)
[2020-05-10] MEDS: Donepezil HCl 5 MG TAB PO SCH (22:51)
[2020-05-10] MEDS: risperiDONE 1 MG TAB PO SCH (22:51)
[2020-05-10] MEDS: Citalopram 10 MG TAB PO SCH (22:51)
[2020-05-10] MEDS: Latanoprost 0.005% Ophth Soln 2.5 ml Bottle EA EYE SCH (22:52)
[2020-05-11] MEDS ORDERED: Dextrose 5% w/ 20 mEq KCl 1,000 ML IV SCH (09:00)
[2020-05-11] MEDS: Amlodipine 5 MG TAB PO SCH (09:08)
[2020-05-11] MEDS: Ascorbic Acid 500 mg Chewable Tablet PO SCH (09:08)
[2020-05-11] MEDS: Metoprolol Tartrate 25 MG TAB PO SCH (09:08)
[2020-05-11] MEDS: Fish Oil 1,000 MG CAP PO SCH (09:08)
[2020-05-11] MEDS: Amiodarone 200 MG TAB PO SCH (09:08)
[2020-05-11] MEDS: Apixaban 5 MG TAB PO SCH (09:08)
[2020-05-11] MEDS: Aspirin 81 mg Enteric Coated Tablet PO SCH (09:08)
[2020-05-11] MEDS: Ferrous Sulfate 325 MG TAB PO SCH (09:08)
[2020-05-11] MEDS: Lisinopril 10 MG TAB PO SCH (09:13)
[2020-05-11] MEDS: Multivit, Therapeutic 1 TAB PO SCH (09:13)
[2020-05-11] MEDS: Cyanocobalamin (Vitamin B-12) 1,000 MCG TAB PO SCH (09:14)
[2020-05-11] MEDS: Aluminum & Magnesium Hydroxide 60 ML, diphenhydrAMINE 150 MG, Lidocaine 2% Viscous Solu... SSW SCH ×3 (10:40→18:15)
--- NOTE | 2020-05-11 11:09 | PDOC.HOSPP ---
- Subjective Encounter Date: 05/11/20 Encounter Time: 09:00 Subjective: Patient is participating with physical therapy. she has no sign of confusion her sodium is quite high. Will give her some fluid as well as encourage p.o. free water intake. Discussed with RN. - Objective Vital Signs & Weight: Vital Signs (12 hours) Temp Pulse Resp BP BP Pulse Ox 05/11/20 09:08 68 151/84 H 05/11/20 07:11 98.4 F 71 12 150/70 H 93 L 05/11/20 06:39 60 16 05/11/20 04:10 98.6 F 63 14 149/76 H 94 L 05/10/20 23:59 97.8 F 70 16 147/86 H 96 Weight Weight 168 lb 14.4 oz I&O: 05/10/20 05/11/20 05/12/20 06:59 06:59 06:59 Intake Total 1185 1007 300 Balance 1185 1007 300 Result Diagrams: 05/10/20 08:55 05/10/20 08:55 Additional Labs: Accuchecks 05/11/20 05/10/20 05/10/20 05:17 20:07 17:17 POC Glucose 163 H 277 H 154 H 05/10/20 12:21 POC Glucose 262 H Hospitalist ROS - Medication Medications: Active Medications Generic Name Dose Route Start Last Admin Trade Name Freq PRN Reason Stop Dose Admin Acetaminophen 650 mg 05/06/20 05:23 05/06/20 05:40 Acetaminophen 650 Mg Suppository ID 650 mg Q4H PRN Administration Headache/Fever/Mild Pain (1-3) Albuterol/Ipratropium 3 ml 05/08/20 13:00 05/11/20 06:39 Ipratropium/Albuterol Sulfate 3 Ml Neb NEB 3 ml [id number] TAYLOR Administration Amiodarone HCl 400 mg 05/08/20 21:00 05/11/20 09:08 Amiodarone 200 Mg Tab PO 400 mg BID TAYLOR Administration Amlodipine Besylate 2.5 mg 05/08/20 09:00 05/11/20 09:08 Amlodipine 5 Mg Tab PO 2.5 mg DAILY TAYLOR Administration Apixaban 5 mg 05/09/20 21:00 05/11/20 09:08 Apixaban 5 Mg Tab PO 5 mg BID TAYLOR Administration Ascorbic Acid 500 mg 05/07/20 09:00 05/11/20 09:08 Ascorbic Acid 500 Mg Chewable Tablet PO 500 mg DAILY TAYLOR Administration Aspirin 81 mg 05/10/20 09:00 05/11/20 09:08 Aspirin 81 Mg Enteric Coated Tablet PO 81 mg DAILY TAYLOR Administration Atorvastatin Calcium 40 mg 05/05/20 21:00 05/10/20 22:50 Atorvastatin Calcium 40 Mg Tab PO 40 mg HS TAYLOR Administration Citalopram Hydrobromide 10 mg 05/06/20 21:00 05/10/20 22:51 Citalopram 10 Mg Tab PO 10 mg HS TAYLOR Administration Al Hydroxide/Mg Hydroxide 60 0 ml 05/07/20 11:30 05/10/20 22:52 ml/ Diphenhydramine HCl 150 mg SSW Not Given / Lidocaine HCl 60 ml/ ACHS TAYLOR Nystatin 6,000,000 units Cyanocobalamin 500 mcg 05/07/20 09:00 05/11/20 09:14 Cyanocobalamin (Vitamin B-12) 1,000 Mcg Tab PO 500 mcg DAILY TAYLOR Administration Donepezil HCl 5 mg 05/06/20 21:00 05/10/20 22:51 Donepezil Hcl 5 Mg Tab PO 5 mg HS TAYLOR Administration Ferrous Sulfate 325 mg 05/07/20 08:00 05/11/20 09:08 Ferrous Sulfate 325 Mg Tab PO 325 mg QAM-WM TAYLOR Administration Fish Oil 1,000 mg 05/07/20 09:00 05/11/20 09:08 Fish Oil 1,000 Mg Cap PO 1,000 mg DAILY TAYLOR Administration Potassium Chloride/Dextrose 1,000 mls @ 50 mls/hr 05/11/20 09:00 05/11/20 09:15 D5w W/ 20 Meq Kcl IV 05/12/20 04:59 1,000 mls .Q20H TAYLOR Administration Insulin Human Lispro 0 units 05/05/20 16:57 05/10/20 23:01 Humalog 300 Units/3 Ml Vial SC 3 unit .BEDTIME SLIDING SC PRN Administration Bedtime Correctional Scale Insulin Human Lispro 0 units 05/09/20 15:11 05/10/20 12:41 Humalog 300 Units/3 Ml Vial SC 4 unit .MILD SLIDING SCALE PRN Administration Mild Correctional Scale Latanoprost 1 drop 05/06/20 21:00 05/10/20 22:52 Latanoprost 0.005% Ophth Soln 2.5 Ml Bottle EA EYE 1 drop HS TAYLOR Administration Lisinopril 10 mg 05/07/20 09:00 05/11/20 09:13 Lisinopril 10 Mg Tab PO 10 mg DAILY TAYLOR Administration Loratadine 10 mg 05/05/20 16:57 05/08/20 22:13 Loratadine 10 Mg Tab PO 10 mg DAILYPRN PRN Administration Sinus Symptoms Metoprolol Tartrate 25 mg 05/05/20 21:00 05/11/20 09:08 Metoprolol Tartrate 25 Mg Tab PO 25 mg BID TAYLOR Administration Multivitamins 1 tab 05/07/20 09:00 05/11/20 09:13 Multivit, Therapeutic 1 Tab PO 1 tab DAILY TAYLOR Administration Risperidone 2 mg 05/06/20 21:00 05/10/20 22:51 Risperidone 1 Mg Tab PO 2 mg HS TAYLOR Administration Senna/Docusate Sodium 2 tab 05/05/20 16:57 05/09/20 23:38 Senokot S 8.6-50 Mg Tab PO 2 tab BID PRN Administration Constipation Sodium Chloride 10 ml 05/05/20 16:57 05/11/20 09:15 Flush - Normal Saline 10 Ml Syringe IVF 10 ml PRN PRN Administration Saline Flush - Exam General Appearance: NAD, awake alert Eye: PERRL ENT: normocephalic atraumatic Neck: supple Heart: RRR Respiratory: CTAB, normal chest expansion Gastrointestinal: soft, normal bowel sounds Extremities: no edema Skin: normal turgor Neurological: cranial nerve grossly intact, no new deficit Psychiatric: normal affect, normal behavior, A&O x 3 Hosp A/P - Plan 79 years old female who has significant past medical history of hypertension, diabetes, asthma , who was found down by home health nurse. It was reported that patient was slightly combative upon arrival. Her pulse irregular. She had no history of atrial fib. -stroke work-up given altered mental status. Her 2D echo showed preserved EF, otherwise unremarkable. She denies any chest pain. low grade fever note with slightly hypoxic on room air, that now resolved -Patient MRI negative for acute intracranial abnormality carotid Dopplers negative CT angiogram also negative. Electroencephalogram unremarkable. Fever - low grade 100.2, slightly hypoxic on room air --since pt was found down, concern she may aspirated --will rpt 2V CXR, send cultures. -Observe her over the weekend, transfer to [facility] on Monday if stable. --covid negative. Altered mental status - likely d/t arrhythmias caused syncopal episode --stroke workup/EEG negative. --cont supportive cares. cont PT. mental status returned to baseline. Atrial fib, rate controlled - spontaneously converted back to normal sinus rhythm --Paroxysmal. Echo reviewed. Appreciate cardiology input --Cont B beta-tremaine, amiodarone as per cardiology. Lovenox for now, transition to oral anticoagulation when tolerated PO well --replaced lytes. DM 2 --A1C 5.8, ISS. Hold metformin d/t contrast studies HTN --cont BB, norvasc added by cardiology Dysplipidemia --Well controlled, LDL 66. Continue statin Dementia --Without behavioral disturbances. Continue supportive care. Resume Aricept Dispo: Swing bed when medically ready. Plan to discharge him with amiodarone 400 mg twice a day for 7 days and then daily for 30 days and then transition to 200 mg daily after that. Echo showed EF EF of 60% and no wall motion abnormality, will place her on Eliquis twice daily and transition from Lovenox twice a day dose. Not able to evaluate her neurologically as she is not following commands, she has mild right-sided facial droop. Hypernatremia -Follow with the free water intake as well as IV fluid. -We will talk to the son Americo Sidhu at [phone]
[2020-05-11] MEDS: HumaLOG 300 UNITS/3 ML VIAL SC PRN ×2 (11:41→17:38)
[2020-05-11 15:53] VITALS: BP 136/77; TEMP 98.1
[2020-05-11 17:53] LABS: Anion Gap 14 mmol/L (10-20); BUN (Urea Nitrogen) 19 mg/dL (9.8-20.1); Calc. Creatinine Clearance 57 mL/min (70-130); Calcium 8.9 mg/dL (7.8-10.44); Carbon Dioxide 26 mmol/L (23-31); Chloride 110 mmol/L (98-107); Glucose 182 mg/dL (83-110); Potassium 3.9 mmol/L (3.5-5.1); Sodium 146 mmol/L (136-145)
[2020-05-12] MEDS ORDERED: Amiodarone 200 MG TAB PO SCH (09:00)
--- NOTE | 2020-05-12 13:32 | PDOC.DS.DS ---
Provider - Provider Date of Admission: 05/06/20 11:36 05/11/20 530pm Admitting Provider: Enzo Nixon MD Primary Care Physician: Kirstie Kimbrough MD Course - Hospital Course Hospital Course: 79-year-old female presented with 79 years old female who has significant past medical history of hypertension, diabetes, asthma , who was found down by home health nurse. It was reported that patient was slightly combative upon arrival. Her pulse irregular. She had no history of atrial fib. -stroke work-up given altered mental status. Her 2D echo showed preserved EF, otherwise unremarkable. She denies any chest pain. low grade fever note with slightly hypoxic on room air, that now resolved -Patient MRI negative for acute intracranial abnormality carotid Dopplers negative CT angiogram also negative. Electroencephalogram unremarkable. Fever - low grade 100.2, slightly hypoxic on room air --since pt was found down, concern she may aspirated --will rpt 2V CXR, send cultures. -Observe her over the weekend, transfer to [facility] on Monday if stable. --covid negative. Altered mental status - likely d/t arrhythmias caused syncopal episode --stroke workup/EEG negative. --cont supportive cares. cont PT. mental status returned to baseline. Atrial fib, rate controlled - spontaneously converted back to normal sinus rhythm --Paroxysmal. Echo reviewed. Appreciate cardiology input --Cont B beta-tremaine, amiodarone as per cardiology. Lovenox for now, transition to oral anticoagulation when tolerated PO well --replaced lytes. DM 2 --A1C 5.8, ISS. Hold metformin d/t contrast studies HTN --cont BB, norvasc added by cardiology Dysplipidemia --Well controlled, LDL 66. Continue statin Dementia --Without behavioral disturbances. Continue supportive care. Resume Aricept Dispo: Swing bed when medically ready. Plan to discharge him with amiodarone 400 mg twice a day for 7 days and then daily for 30 days and then transition to 200 mg daily after that. Echo showed EF EF of 60% and no wall motion abnormality, will place her on Eliquis twice daily and transition from Lovenox twice a day dose. Hypernatremia improved and it is 146 prior to discharge. I talked to the son Mr. Americo Urena and he is very concerned about mom being in the hospital for over a week and he prefers her going to the rehab or swing bed soon. He recently lost his father in November in a similar situation. I talk to the pharmacy on --- for amiodarone as above. Resuscitation Status: 05/05/20 13:53 Resuscitation Status Routine Resuscitation Status: FULL: Full Resuscitation - Labs Lab Results: 05/10/20 08:55 05/11/20 17:13 Abnormal Lab Results - Last 48 hrs 05/11/20 17:13: Sodium 146 H, Chloride 110 H Microbiology - Entire Visit 05/08/20 15:10 Urine Straight Catheter Urine Culture - Final Streptococcus sanguinis 05/08/20 00:08 Venous blood - Right Hand Blood Culture - Preliminary NO GROWTH AT 48 HOURS 05/08/20 00:08 Venous blood - Right Arm Blood Culture - Preliminary NO GROWTH AT 48 HOURS 05/08/20 00:24 Nasopharyngeal swab Respiratory Virus Panel (PCR) - Final - Physical Exam Vitals: Weight Weight 168 lb 14.4 oz Physical Exam: The patient was seen and examined on the day of discharge. Plan - Discharge Medications Prescriptions: Amiodarone [Cordarone] 400 mg PO BID 4 Days #8 tab Home Medications: Medication Instructions Recorded Confirmed Type Albuterol Sulfate [Albuterol 2 puff PO PRN PRN 05/05/20 05/11/20 History Sulfate Hfa] Ascorbic Acid [Vitamin C] 500 mg PO DAILY 05/05/20 05/11/20 History Citalopram [CeleXA] 10 mg PO HS 05/05/20 05/11/20 History Cyanocobalamin (Vitamin B-12) 500 mg PO DAILY 05/05/20 05/11/20 History [Vitamin B-12] Donepezil HCl [Aricept] 5 mg PO HS 05/05/20 05/11/20 History Ferrous Sulfate [Iron] 325 mg PO DAILY 05/05/20 05/11/20 History Fish Oil 1,200 mg PO DAILY 05/05/20 05/11/20 History Latanoprost/Pf [Latanoprost 0.005% 1 drop EA EYE HS 05/05/20 05/11/20 History Eye Drop] Lisinopril [Zestril] 10 mg PO DAILY 05/05/20 05/11/20 History Multivitamin/Iron/Folic Acid 1 tab PO DAILY 05/05/20 05/11/20 History [Centrum Adults Tablet] Pravastatin Sodium [Pravachol] 20 mg PO HS 05/05/20 05/11/20 History metFORMIN [Glucophage] 1,000 mg PO BID 05/05/20 05/11/20 History risperiDONE [Risperdal] 2 mg PO HS 05/05/20 05/11/20 History Amiodarone [Cordarone] 400 mg PO BID 4 Days #8 tab 05/11/20 05/11/20 Rx Amlodipine [Norvasc] 2.5 mg PO DAILY tab 05/11/20 05/11/20 Rx Apixaban [Eliquis] 5 mg PO BID tab 05/11/20 05/11/20 Rx Allergies: No Known Allergies Allergy (Verified 05/11/20 23:40) - Discharge Instructions Discharge Instructions:: amiodarone 400mg bid until monday, and then 400 mg daily for 30 days and then 200 mg daily. Follow with PCP in 2 to [address] Benitez, enterprise security architect in 2 to 3 weeks. She needs BMP panel in 2 days to check the sodium level. FOCUS: Transition from Acute Care after Discharge GOAL: Successful transition to care in the community YOUR TASKS: (1) review all information outlined in your discharge packet (2) follow any instructions outlined in your discharge packet (3) contact your primary care provider if you have questions or need additional assistance Activity:: Activity as Tolerated Nourishment:: Regular Diet - Follow up Plan Referrals: [facility]* [Outside] Kirstie Kimbrough MD [Primary Care Provider] - Disposition: ALF FACILITY Quality - Care Measures CORE MEASURES:: N/A
--- NOTE | 2020-05-13 03:15 | PQF ---
CLINICAL DOCUMENTATION CLARIFICATION FORM: Dear : Juvenal Burr Date / Time: 05/13/2020 0313 Please exercise your independent, professional judgment in responding to the clarification form. Clinical indicators are provided on the bottom of this form for your review Please check appropriate box(es): [ x] Encephalopathy: Etiology: [ ] Hypertensive [ x] Metabolic [ ] Toxic [ ] In the setting of underlying dementia [ ] Unspecified [ ] Other (please specify) [ ] Transient Alteration of Awareness [ ] Other diagnosis, please specify [ ] Unable to determine In addition, please specify: Present on Admission (POA): [ ] Yes [ ] No [ ] Unable to determine Physician Signature: Date/Time: For continuity of documentation, please document condition throughout progress notes and discharge summary. Thank You. To be completed by CDI/Coding staff for physician review: Present Clinical Indicators - Signs / Symptoms / Labs Results and Location in Medical Record [x] CK-MB 3.2, Troponin I 0.068; 0.097, Bnp 69.6 Laboratory 05/05 [x] BP 178/84. Pulse 73, Resp 21, temp 97.9 Vital signs 05/05 [x] EKG: Afib with controlled ventricular respones, ST and T waves normal, No acute findings for ischemia ED notes p9 05/11 [x] AMS, NSTEMI ED notes p9 05/11 [x] Pt found on the floor H&P p1 05/05 Dr Nixon [x] Paramedics cheked blood sugar which was 255 H&P p1 05/05 Dr Nixon [x] Altered mental status H&P p5 05/05 Dr Nixon [x] Hyperkalemia H&P p6 05/05 Dr Nixon Present Risk Factors Results and Location in Medical Record [x] 79 year-old Female H&P p1 05/05 Dr Nixon [x] Dementia H&P p1 05/05 Dr Nixon [x] HTN H&P p1 05/05 Dr Nixon [x] DM H&P p1 05/05 Dr Nixon Present Treatments Results and Location in Medical Record [x] Nitrostat 0.4 mg SL AUG 07 [x] Aspirin 300 mg AUG 07 [x] Insulin 4 units AUG 07 [x] Neuro consult Consult Dr Cardenas 05/06 [x] Cardio consult Consult Dr Benitez 05/07 [x] Serial cardiac enzymes H&P p5 05/05 Dr Nixon [x] IVF AUG 07 CDS/Hot Wire Glass Tube Cutter Signature: Magalys Chen Phone #: [phone] Date/Time: 05/13/2020 0313 This is a permanent part of the Medical Record [facility]
--- NOTE | 2020-05-13 03:16 | PQF ---
CLINICAL DOCUMENTATION CLARIFICATION FORM: Dear : Juvenal Burr Date / Time: 05/13/2020 2399 Please exercise your independent, professional judgment in responding to the clarification form. Clinical indicators are provided on the bottom of this form for your review Please check appropriate box(es): [ ] Type 1 KS (NSTEMI) [ x] Type 2 KS (T2MI) secondary to Atrial fibrillation [ ] Demand Ischemia without KS [ ] Other diagnosis, please specify [ ] Unable to determine Physician Signature: Date/Time: For continuity of documentation, please document condition throughout progress notes and discharge summary. Thank You To be completed by CDI/Coding staff for physician review: Present Clinical Indicators - Signs / Symptoms / Labs Results and Location in Medical Record [x] CK-MB 3.2, Troponin I 0.068; 0.097, Bnp 69.6 Laboratory 05/05 [x] Echocardiogram: EF 55-60% Imaging 05/06 [x] BP 178/84. Pulse 73, Resp 21, temp 97.9 Vital signs 05/05 [x] EKG: Afib with controlled ventricular respones, ST and T waves normal, No acute findings for ischemia ED notes p9 05/11 [x] AMS, NSTEMI ED notes p9 05/11 [x] Pt found on the floor H&P p1 05/05 Dr Nixon [x] Elevated troponin H&P p5 05/05 Dr Nixon Present Risk Factors Results and Location in Medical Record [x] 79 year-old Female H&P p1 05/05 Dr Nixon [x] Dementia H&P p1 05/05 Dr Nixon [x] HTN H&P p1 05/05 Dr Nixon [x] DM H&P p1 05/05 Dr Nixon [x] HLD HP 05/05 [x] Chronic Afib HP 05/05 Present Treatments Results and Location in Medical Record [x] Nitrostat 0.4 mg SL AUG 07 [x] Aspirin 300 mg oral AUG 07 [x] Cardio consult Consult Dr Benitez 05/07 [x] Serial cardiac enzymes H&P p5 05/05 Dr Nixon [x] Lovenox 80mg Subcu AUG 07 [x] Eliquis 5 mg Oral AUG 07 CDS/Mincemeat Maker Signature: Magalys Chen Phone #: [phone] Date/Time: 05/13/20203 This is a permanent part of the Medical Record [facility]
--- NOTE | 2020-05-13 16:32 | HP ---
ADDENDUM: Physical examination was not entered during H and P, this is an addendum for that particular H and P. PHYSICAL EXAMINATION: GENERAL: The patient is currently alert and awake, no acute distress. HEENT: Head, normocephalic and atraumatic. NECK: Supple. No JVD. No meningeal signs of irritation. LUNGS: Clear to auscultation without any rhonchi or rales. CARDIAC: S1 and S2 irregular. No murmur. No gallop. No rub. ABDOMEN: Soft, bowel sounds present, nontender, nondistended. No organomegaly. No mass. EXTREMITIES: No edema. Good distal pulsation. NEUROLOGIC: Nonfocal examination. PSYCHIATRIC: Normal affect. Job ID: [id number]
== END 2020-05-11 19:19 | disposition swing bed (61) | DRG 280 ==
LOC: ERS 11:08 → 2SE 13:55 → OBSVTOIN 05-06 11:36
PROVIDERS: ADMIT Internal Medicine; ATTEND Family Medicine
DX: I48.0 Paroxysmal atrial fibrillation (principal); I21.A1 Myocardial infarction type 2; G93.41 Metabolic encephalopathy; E87.0 Hyperosmolality and hypernatremia; F03.91 Unspecified dementia, unspecified severity, with behavioral disturbance; Z20.828 Contact with and (suspected) exposure to other viral communicable diseases; R09.02 Hypoxemia; E11.65 Type 2 diabetes mellitus with hyperglycemia; I10 Essential (primary) hypertension; E78.5 Hyperlipidemia, unspecified; F41.9 Anxiety disorder, unspecified; F32.9 Major depressive disorder, single episode, unspecified; J45.909 Unspecified asthma, uncomplicated; R77.8 Other specified abnormalities of plasma proteins; E87.5 Hyperkalemia; R50.9 Fever, unspecified; R29.810 Facial weakness; Z79.899 Other long term (current) drug therapy; Z79.84 Long term (current) use of oral hypoglycemic drugs
CPT/HCPCS: 36415; 36416; 51701; 70450; 70496; 70498; 70551; 71045; 71046; 71275; 72125; 80048; 80053; 80061; 81003; 81015; 82550; 82553; 83036; 83605; 83735; 83880; 84145; 84484; 85025; 85610; 85730; 86140; 87040; 87077; 87086; 87186; 87633; 87635; 90471; 90732; 93005; 93306; 94640; 95712; 95819; 95957; 96372; G0009; G0378; J1650; J3475; J3480; J7050; J7620; Q0163; Q9967; U0003

== ENCOUNTER 2020-06-04 13:08 | Inpatient (IN) | payer MEDICARE ==
[2020-06-04] MEDS ORDERED: Iopamidol-370 76% 500 ML 1 ML ONE (13:52)
[2020-06-04 14:31] LABS: Bacteria/HPF None Seen HPF (None Seen); Bilirubin Negative (Negative); Blood, Urine 2+ (Negative); Clarity Clear (Clear); Glucose, Urine (Dipstick) Normal (Negative); Ketone, Urine Negative (Negative); Leukocyte Negative Leu/uL (Negative); Nitrite Negative (Negative); Protein, Urine (Dipstick) 30 mg/dL (Neg-Trace); RBC/HPF 0-3 HPF (0-3); Specific Gravity, Urine 1.013 (1.002-1.036); Squamous Epithelial None Seen HPF (0-3); Urobilinogen Normal mg/dL (Less than 2); WBC/HPF 0-3 HPF (0-3)
--- NOTE | 2020-06-04 15:08 | RAD ---
EXAM: XR Pelvis AP STANDARD PROVIDED CLINICAL HISTORY: Injury with left hip pain FINDINGS: There is no evidence for fracture or other acute osseous abnormality. Alignment appears anatomic. Vicky nt spaces appear preserved. IMPRESSION: No evidence for an acute osseous abnormality. If there is persistent clinical concern, conservative m anagement and follow-up imaging advised.
--- NOTE | 2020-06-04 15:08 | RAD ---
EXAM: XR Femur Lt 2 View STANDARD PROVIDED CLINICAL HISTORY: Pain FINDINGS: There is no evidence for fracture or other acute osseous abnormality. Alignment appears anatomic. Vicky nt spaces appear preserved. IMPRESSION: No evidence for an acute osseous abnormality. If there is persistent clinical concern, conservative m anagement and follow-up imaging advised.
--- NOTE | 2020-06-04 15:09 | RAD ---
Chest one view HISTORY: Fall. Chest pain. COMPARISON: 05/05/2020. FINDINGS: Cardiac silhouette is magnified by projection. Pulmonary vasculature are unremarkable. Mediastinum remains midline allowing for rightward convex curvature of the thoracic spine. Tortuous a tom. No confluent airspace consolidation or evidence of pneumothorax. IMPRESSION : No acute abnormalities are demonstrated.
--- NOTE | 2020-06-04 15:10 | RAD ---
LEFT ANKLE 3 VIEWS: HISTORY: Injury, left ankle pain FINDINGS: Soft tissue swelling is present. The ankle mortise is maintained. No acute fracture or dislocation is identified. A plantar calcaneal spur is present.
[2020-06-04 15:43] LABS: #Eosinphils 0.1 thou/uL (0.0-0.7); #Lymphocytes 1.1 thou/uL (1.20-3.40); #Monocytes 1.6 thou/uL (0.11-0.59); #Neutrophils 8.5 thou/uL (1.40-6.50); %Basophils 0.3 % (0.0-1.0); %Eosinophils 0.7 % (0.0-10.0); %Lymphocytes 9.6 % (21.0-51.0); %Monocytes 13.9 % (0.0-10.0); %Neutrophils 75.5 % (42.0-75.0); Hemoglobin 11.8 g/dL (12.0-16.0); Mean Corpuscular HGB CONC 33.7 g/dL (32.0-36.0); Mean Corpuscular Hemoglobin 29.9 pg (27.0-31.0); Mean Corpuscular Volume 88.6 fL (78.0-98.0); Mean Platelet Volume 8.8 fL (7.4-10.4); Platelet Count 209 thou/uL (130-400); RBC Distribution Width 12.8 % (11.5-14.5); Red Blood Cell (RBC) Count 3.95 mill/uL (4.20-5.40); White Blood Cell (WBC) Count 11.3 thou/uL (4.8-10.8)
[2020-06-04 16:02] LABS: ALT (SGPT) 17 U/L (8-55); AST (SGOT) 25 U/L (5-34); Albumin 3.9 g/dL (3.4-4.8); Alkaline Phosphatase 42 U/L (40-110); Anion Gap 13 mmol/L (10-20); BUN (Urea Nitrogen) 15 mg/dL (9.8-20.1); Bilirubin, Total 0.4 mg/dL (0.2-1.2); CK (CPK) 1453 U/L (29-168); Calc. Creatinine Clearance 0 mL/min (70-130); Calcium 9.2 mg/dL (7.8-10.44); Carbon Dioxide 29 mmol/L (23-31); Chloride 103 mmol/L (98-107); Globulin 2.4 g/dL (2.4-3.5); Glucose 154 mg/dL (83-110); Potassium 4.3 mmol/L (3.5-5.1); Protein, Total 6.3 g/dL (6.0-8.3); Sodium 141 mmol/L (136-145)
--- NOTE | 2020-06-04 16:07 | RAD ---
Left elbow 4 views HISTORY: Fall. Injury. FINDINGS: Radiocapitellar alignment is maintained. Irregularity of the lateral margin of the radial h ead and neck has the appearance of an old injury with healing. Small adjacent ossific avulsion is well corticated. Prominent osteophytosis. No fluid distention of the joint capsule is apparent on the lateral view, al though there is rotation and incomplete flexion. IMPRESSION : Prominent degenerative changes and suspected old injury of the radial head/neck. No acute abnormaliti es are demonstrated.
--- NOTE | 2020-06-04 16:26 | CT ---
CT BRAIN NONCONTRAST: DATE: 06/04/2020 HISTORY: 79-year-old female status post acute head trauma FINDINGS: There is no evidence of acute intra-axial or extra-axial hemorrhage. There is no midline shift or any other mass effect. There is no extra-axial fluid collection. There is no evidence of obstructive hydrocephalus. Calvarium is intact. There is diffuse brain parenchymal volume loss. There are low att enuation areas in the white matter. These are nonspecific, but in a patient of this age, they are probably chronic ischemic white matter changes due to microvascular atherosclerosis. High left alejandra lateral superficial soft tissue swelling adjacent to the frontal bone. IMPRESSION: 1) No acute intracranial findings. 2) involutional changes and severe chronic ischemic white matter changes. 3) left upper acute traumatic scalp contusion-hematoma.
--- NOTE | 2020-06-04 16:34 | CT ---
EXAM: CT cervical spine PROVIDED CLINICAL HISTORY: Injury to cervical spine. TECHNIQUE: Contiguous axial CT images are obtained through the cervical spine from the skull base to the T1 leve l. Sagittal and coronal reformatted images are provided. COMPARISON: 05/17/2020 FINDINGS: There are scattered mild degenerative changes again seen in the cervical spine. No fracture or trauma tic subluxation is seen. No prevertebral soft tissue swelling apparent. Limited visualized lung apices are clear with minimal nonspecific interstitial thickening. Hypodense nodules are again seen in each lobe of thyroid gland. IMPRESSION: 1. No fracture or subluxation involving the cervical spine. 2. Hypodense nodules each lobe of thyroid gland unchanged from recent study on 05/17/2020 and study o n 09/08/2018. Although these nodules are stable in size, follow-up thyroid ultrasound may be helpful for further evaluation.
--- NOTE | 2020-06-04 16:50 | CT ---
CT CHEST WITH IV CONTRAST CT ABDOMEN WITH IV CONTRAST CT PELVIS WITH IV CONTRAST CORONAL AND SAGITTAL REFORMATIONS OF THE THORACOLUMBAR SPINE 06/04/20 HISTORY: Injury, fall, chest pain, abdominal pain, back pain. FINDINGS: No mediastinal hematoma is seen. No pleural or pericardial effusions are identified. No pneumothorace s or pulmonary contusions are seen. No free air or free fluid is seen in the abdomen or pelvis. The liver, spleen, pancreas, adrenal glan ds and kidneys are intact. Gallbladder and urinary bladder also appear intact. A fibroid uterus is pr esent. There are degenerative changes with scoliosis of the thoracolumbar spine. No acute fracture or sublux ation is seen in the thoracolumbar spine. No other acute osseous abnormalities are seen. IMPRESSION: No CT evidence of acute intrathoracic or solid organ injury. POS: OFF
--- NOTE | 2020-06-04 22:03 | PDOC.HHP ---
Hospitalist HPI - History of Present Illness Weakness/fall History of Present Illness: This is a 79-year-old female patient with a history of Hypertension, diabetes, asthma who was brought in to the ED earlier this afternoon on account of a fall. Of note patient was recently admitted and discharged on 05/24/2020 on account of physical deconditioning, fall and multiple chronic problems. On that admission she was seen by cardiology and started on Eliquis and amiodarone for A. fib. Other day of discharge on the last admission there was concern for her to go back home as she had care provided to the edema however she was alone in the night when she was vulnerable to falls with no one present. Apparently due to lack of finances and family opted that she goes back home after discharge. On the day of presentation she was found on the floor next to her bed where she had stayed for several hours after she fell out of her bed. She was brought in for further evaluation. At presentation she was generally weak. Blood pressure was 141/70, pulse 77, respiratory rate 16, temperature 97.3 and saturating 97 on room air. Labs showed a mild leukocytosis of 11.3, anemia of 11.8, creatinine kinase was elevated at thousand 453. Troponin was 0.017. Imaging of her head CTA L-spine revealed no acute events. Abdominal and chest CTs as well as pelvic CTs were also nonrevealing. Initial arrangements were attempted to have her discharge straight from the ED to rehab however her insurance which is [employer] did not afford her the option [facility]. She was admitted so she could have evaluation on admission for rehab. She received 2 L normal saline while in the ED. Hospitalist team was consulted for admission. Hospitalist ROS - Review of Systems Constitutional: reports: weakness, malaise. denies: fever, chills, sweats Eyes: denies: pain Respiratory: denies: cough, shortness of breath, SOB with excertion Gastrointestinal: denies: nausea, vomiting, abdominal pain, constipation Genitourinary: denies: dysuria, frequency, incontinence, hematuria Neurological: denies: weakness (In the legs especially on the right) All other systems reviewed; all pertinent +/- noted in HPI/Subj - Medication Medications: Medications: Currently refer to ambulatory list. Allergies: No known drug allergies Hospitalist History - Past Medical History Other Medical History: Hypertension, diabetes, asthma - Past Surgical History Other Surgical History: section - Family History Family History: reports: no pertinent history - Social History Smoking Status: Current every day smoker Drugs: reports: none Living Situation: Alone Activity level: uses cane/walker - Exam General - other findings: Awake, ill-looking and somnolent. Eye: PERRL, anicteric sclera ENT: normocephalic atraumatic, no oropharyngeal lesions Heart: RRR, no murmur, no gallops Respiratory: CTAB, no wheezes, no rales, no ronchi Gastrointestinal: soft, non-tender, non-distended, normal bowel sounds Extremities: no cyanosis, no clubbing, no edema Neurological: negative: no weakness Neurological - other findings: Cross generalized weakness. Appears extremely tired Psychiatric: A&O x 3, flat affect, somnolent Hospitalist Results - Labs Result Diagrams: 06/04/20 21:45 06/04/20 15:31 Lab results: WBC 11.3 thou/uL (4.8-10.8) H 06/04/20 15:31 Hgb 11.8 g/dL (12.0-16.0) L 06/04/20 15:31 Hct 35.0 % (36.0-47.0) L 06/04/20 15:31 MCV 88.6 fL (78.0-98.0) 06/04/20 15:31 Plt Count 209 thou/uL (130-400) 06/04/20 15:31 Neutrophils % 75.5 % (42.0-75.0) H 06/04/20 15:31 Sodium 141 mmol/L (136-145) 06/04/20 15:31 Potassium 4.3 mmol/L (3.5-5.1) 06/04/20 15:31 Chloride 103 mmol/L (98-107) 06/04/20 15:31 Carbon Dioxide 29 mmol/L (23-31) 06/04/20 15:31 BUN 15 mg/dL (9.8-20.1) 06/04/20 15:31 Creatinine 0.98 mg/dL (0.6-1.1) 06/04/20 15:31 Glucose 154 mg/dL (83-110) H 06/04/20 15:31 Calcium 9.2 mg/dL (7.8-10.44) 06/04/20 15:31 Total Bilirubin 0.4 mg/dL (0.2-1.2) 06/04/20 15:31 AST 25 U/L (5-34) 06/04/20 15:31 ALT 17 U/L (8-55) 06/04/20 15:31 Alkaline Phosphatase 42 U/L (40-110) 06/04/20 15:31 Creatine Kinase 1453 U/L (29-168) H 06/04/20 15:31 Troponin I 0.017 ng/mL (< 0.028) 06/04/20 15:31 Serum Total Protein 6.3 g/dL (6.0-8.3) 06/04/20 15:31 Albumin 3.9 g/dL (3.4-4.8) 06/04/20 15:31 Urine Ketones Negative mg/dL (Negative) 06/04/20 14:11 Urine Blood 2+ (Negative) A 06/04/20 14:11 Urine Nitrite Negative (Negative) 06/04/20 14:11 Ur Leukocyte Esterase Negative Javier/uL (Negative) 06/04/20 14:11 Urine RBC 0-3 HPF (0-3) 06/04/20 14:11 Urine WBC 0-3 HPF (0-3) 06/04/20 14:11 Ur Squamous Epith Cells None Seen HPF (0-3) 06/04/20 14:11 Urine Bacteria None Seen HPF (None Seen) 06/04/20 14:11 Hospitalist H&P A/P - Plan Plan: This is a 79-year-old female patient with a history of hypertension, diabetes mellitus and asthma presenting here after she was found on the floor with generalized weakness. Generalized weakness Secondary to general deconditioning and recovered from previous episode. We will check urine electrolytes and replace Arrange for rehab placement PT/case management referral Type 2 diabetes mellitus Correctional insulin Monitor glucose. Bipolar disorder Resume home meds once verified. Paroxysmal A. fib Hold apixaban Start amiodarone once verified CODE STATUSfull code VTE prophylaxisLovenox Dispositionpending PT assessment and backup engineer placement.
[2020-06-04 22:08] LABS: #Eosinphils 0.2 thou/uL (0.0-0.7); #Lymphocytes 0.8 thou/uL (1.20-3.40); #Monocytes 1.2 thou/uL (0.11-0.59); #Neutrophils 7.1 thou/uL (1.40-6.50); %Basophils 0.5 % (0.0-1.0); %Eosinophils 2.4 % (0.0-10.0); %Lymphocytes 8.8 % (21.0-51.0); %Monocytes 12.4 % (0.0-10.0); %Neutrophils 75.9 % (42.0-75.0); Mean Corpuscular HGB CONC 33.6 g/dL (32.0-36.0); Mean Corpuscular Hemoglobin 29.9 pg (27.0-31.0); Mean Corpuscular Volume 89.2 fL (78.0-98.0); Platelet Count 211 thou/uL (130-400); RBC Distribution Width 13.1 % (11.5-14.5); Red Blood Cell (RBC) Count 3.67 mill/uL (4.20-5.40); White Blood Cell (WBC) Count 9.3 thou/uL (4.8-10.8)
[2020-06-05 00:23] VITALS: BMI 24.1
[2020-06-05 00:24] LABS: Magnesium 1.3 mg/dL (1.6-2.6); Phosphorus 3.4 mg/dL (2.3-4.7)
[2020-06-05] MEDS ORDERED: Electrolyte Replacement Protocol 1 EACH FS PRN (03:15)
[2020-06-05] MEDS ORDERED: Magnesium 2 GM/50 ML 2 GM in Premix Bag 1 BAG IVPB SCH (03:30)
[2020-06-05 08:20] LABS: SARS-CoV-2 MS2 Positive; SARS-CoV-2 N Gene Negative; SARS-CoV-2 S Gene Negative; SARS-CoV-2 by NAA Not Detected (NotDetected); SARS-CoV-2 orf1ab Negative
--- NOTE | 2020-06-05 10:14 | MRI ---
Exam: Brain MRI with and without contrast HISTORY: Generalized weakness. History of fall. Seizure. Rhabdomyolysis. COMPARISON: 05/06/2020 FINDINGS: Gradient echo sequence: No hemorrhage Calvarium: Appropriate T1 marrow signal intensity Midline brain parenchyma: Unremarkable Cerebrum:No parenchymal mass, mass effect or midline shift. Brain volume is age-appropriate. Cortical diggs-white white matter differentiation is preserved. T2 and FLAIR white matter hyperintensities due to chronic small vessel ischemic change. There is no evidence of mesial temporal sclerosis. Ventricles: No evidence of hydrocephalus. Sinuses and mastoid air cells: Mucosal disease involving the paranasal sinuses. There is evidence of previous sinonasal surgery. Scalp: Left frontal scalp hematoma. Diffusion: Central arterial flow is maintained. Absent restricted diffusion. Postcontrast images: No pathologic enhancement of the brain parenchyma. IMPRESSION: 1. Chronic small vessel ischemic changes white matter. 2. Absent restricted diffusion. No acute infarction 3. No pathologic enhancement of the brain parenchyma 4. Left scalp hematoma
[2020-06-05] MEDS ORDERED: Calcium Carbonate 500 MG ChewTAB PO PRN (10:59)
[2020-06-05 11:40] LABS: #Eosinphils 0.2 thou/uL (0.0-0.7); #Monocytes 1.2 thou/uL (0.11-0.59); #Neutrophils 6.9 thou/uL (1.40-6.50); %Basophils 0.4 % (0.0-1.0); %Eosinophils 2.1 % (0.0-10.0); %Lymphocytes 11.1 % (21.0-51.0); %Monocytes 12.8 % (0.0-10.0); %Neutrophils 73.6 % (42.0-75.0); Hemoglobin 11.2 g/dL (12.0-16.0); Mean Corpuscular HGB CONC 32.6 g/dL (32.0-36.0); Mean Corpuscular Hemoglobin 29.5 pg (27.0-31.0); Mean Corpuscular Volume 90.5 fL (78.0-98.0); Mean Platelet Volume 8.8 fL (7.4-10.4); Platelet Count 199 thou/uL (130-400); RBC Distribution Width 13.2 % (11.5-14.5); Red Blood Cell (RBC) Count 3.81 mill/uL (4.20-5.40); White Blood Cell (WBC) Count 9.4 thou/uL (4.8-10.8)
[2020-06-05 12:10] LABS: Phosphorus 3.7 mg/dL (2.3-4.7)
[2020-06-05 12:14] LABS: Anion Gap 15 mmol/L (10-20); BUN (Urea Nitrogen) 12 mg/dL (9.8-20.1); Calc. Creatinine Clearance 59 mL/min (70-130); Calcium 9.1 mg/dL (7.8-10.44); Carbon Dioxide 28 mmol/L (23-31); Chloride 102 mmol/L (98-107); Glucose 178 mg/dL (83-110); Potassium 4.3 mmol/L (3.5-5.1); Sodium 141 mmol/L (136-145)
[2020-06-05] MEDS ORDERED: Magnesium Sulfate 4 GM in Sodium Chloride 0.9% 250 ML 250 ML IVPB SCH (13:00)
[2020-06-05] MEDS: Sodium Chloride 0.9% 1,000 ML IV SCH (14:41)
--- NOTE | 2020-06-05 14:51 | CON ---
DATE OF CONSULTATION: 06/05/2020 REASON FOR CONSULTATION: Altered mental status/status post fall/generalized weakness. HISTORY OF PRESENT ILLNESS: Ms. Fletcher is a 79-year-old female with medical history significant for hypertension, diabetes, asthma, presented to the emergency room after a fall on 06/04/2020. The patient was recently admitted and discharged on 05/24/2020 because of physical deconditioning, falls, and multiple chronic problem. On that admission, she was seen by Cardiology and started on Eliquis and amiodarone for atrial fibrillation. Per patient, she went to the restroom at night and then when she was coming back to her room, she slipped and fell. She denies losing consciousness, but felt so weak that she was unable to stand up and laid there for 8 hours and waited for the caregiver to come so that she can help her to the bed. When the caregiver came, she was extremely weak, so it was decided to bring her to the emergency room for further evaluation. In the emergency room, head CT was done which was negative for acute intracranial pathology. CT of the cervical and the lumbar spine was also negative. Abdominal and chest CTs as well as pelvic CTs were also unrevealing. She was given fluid and admitted for further evaluation review. The patient denies focal weakness, focal paresthesias, nausea, vomiting, headache, chest pain, abdominal pain, recent illness, cough, but does complain of generalized weakness. MEDICATIONS: Please see updated ambulatory list for reconciled medications. ALLERGIES: NO KNOWN DRUG ALLERGIES. PAST MEDICAL HISTORY: Hypertension, diabetes, and asthma. PAST SURGICAL HISTORY: section. FAMILY HISTORY: No significant family history. SOCIAL HISTORY: The patient lives alone. She uses cane and walker. Denies alcohol, illegal drug use. She does smoke. PHYSICAL EXAMINATION: General - The patient is awake, but somnolent. Open eyes to verbal stimuli. Follows commands intermittently. Eye: PERRL, anicteric sclera ENT: normocephalic atraumatic, no oropharyngeal lesions Heart: RRR, no murmur, no gallops Respiratory: CTAB, no wheezes, no rales, no ronchi Gastrointestinal: soft, non-tender, non-distended, normal bowel sounds Extremities: no cyanosis, no clubbing, no edema Neurological: Mental status, the patient is alert and oriented to person, place, and time. Speech is clear. She is somnolent. Follows commands intermittently. Cranial nerves 2 through 12 intact. Motor; muscle tone and bulk are normal. Moving all 4 extremities. Strength 4/5 bilaterally. Sensory, withdraws to nailbed pressure bilaterally. Cerebellar, finger-nose testing intact. Gait deferred due to patient's safety reason. DATA REVIEWED: I reviewed the labs, which were significant for anemia. Her hemoglobin of 11 and hematocrit of 32.8, and hyperglycemia of 154. She does have rhabdomyolysis. Lab results: WBC 11.3 thou/uL (4.8-10.8) H 06/04/20 15:31 Hgb 11.8 g/dL (12.0-16.0) L 06/04/20 15:31 Hct 35.0 % (36.0-47.0) L 06/04/20 15:31 MCV 88.6 fL (78.0-98.0) 06/04/20 15:31 Plt Count 209 thou/uL (130-400) 06/04/20 15:31 Neutrophils % 75.5 % (42.0-75.0) H 06/04/20 15:31 Sodium 141 mmol/L (136-145) 06/04/20 15:31 Potassium 4.3 mmol/L (3.5-5.1) 06/04/20 15:31 Chloride 103 mmol/L (98-107) 06/04/20 15:31 Carbon Dioxide 29 mmol/L (23-31) 06/04/20 15:31 BUN 15 mg/dL (9.8-20.1) 06/04/20 15:31 Creatinine 0.98 mg/dL (0.6-1.1) 06/04/20 15:31 Glucose 154 mg/dL (83-110) H 06/04/20 15:31 Calcium 9.2 mg/dL (7.8-10.44) 06/04/20 15:31 Total Bilirubin 0.4 mg/dL (0.2-1.2) 06/04/20 15:31 AST 25 U/L (5-34) 06/04/20 15:31 ALT 17 U/L (8-55) 06/04/20 15:31 Alkaline Phosphatase 42 U/L (40-110) 06/04/20 15:31 Creatine Kinase 1453 U/L (29-168) H 06/04/20 15:31 Troponin I 0.017 ng/mL (< 0.028) 06/04/20 15:31 Serum Total Protein 6.3 g/dL (6.0-8.3) 06/04/20 15:31 Albumin 3.9 g/dL (3.4-4.8) 06/04/20 15:31 Urine Ketones Negative mg/dL (Negative) 06/04/20 14:11 Urine Blood 2+ (Negative) A 06/04/20 14:11 Urine Nitrite Negative (Negative) 06/04/20 14:11 Ur Leukocyte Esterase Negative Javier/uL (Negative) 06/04/20 14:11 Urine RBC 0-3 HPF (0-3) 06/04/20 14:11 Urine WBC 0-3 HPF (0-3) 06/04/20 14:11 Ur Squamous Epith Cells None Seen HPF (0-3) 06/04/20 14:11 Urine Bacteria None Seen HPF (None Seen) 06/04/20 14:11 ASSESSMENT AND PLAN: Ms. La Fletcher is a 79-year-old female with history significant for hypertension, diabetes, asthma, presented to the emergency room after a fall, generalized weakness, and mild confusion. Neurology consulted for further evaluation to rule out stroke. she does not have any focal deficits. MRI of the brain to assess acute intracranial pathology, reviewed, which was negative for acute intracranial process. It does show chronic small vessel disease. EEG ongoing to rule out cortical irritability. We will follow up on the results. Neuro checks every 4 hours. Strict control of blood pressure and blood glucose. Continue home medications. PT/OT/Speech. Continue medical management per primary team. We will continue to follow. Thank you for the consult. Job ID: [id number] MTDD
--- NOTE | 2020-06-05 15:56 | PDOC.EEG ---
Neurology EEG Report - Report Report: This EEG was performed using 24 channel [employer] video EEG machine with 24 disc electrodes. This was an extended 2 hours 8 minutes of inpatient video EEG recording. Digital analysis of the EEG was done for spike and seizure detection which revealed no abnormalities. Background: The posterior background rhythm was not observed. Hyperventilation: Not performed. Photic Stimulation: No significant response. Sleep: No stage change is observed. EEG Diagnosis: Generalized theta activity seen throughout the recording. Absence of Posterior background rhythm. Clinical Interpretation: This EEG is consistent with moderate generalized nonspecific cerebral dysfunction. There is mild interval improvement since the prior study. No electrographic seizures captured during the recording.
--- NOTE | 2020-06-05 19:02 | PDOC.HOSPP ---
- Subjective Encounter Date: 06/05/20 Encounter Time: 10:30 Subjective: Patient seen and examined for generalized weakness with recurrent falls. Denies any fever, chills or new focal deficit. No chest pain or palpitations reported. Denies any nausea or vomiting - Objective Vital Signs & Weight: Vital Signs (12 hours) Temp Pulse Resp BP Pulse Ox 06/05/20 11:28 98.3 F 72 18 152/69 H 93 L 06/05/20 08:00 99.3 F 77 18 142/71 H 97 Weight Weight 176 lb 6.4 oz I&O: 06/04/20 06/05/20 06/06/20 06:59 06:59 06:59 Intake Total 540 Output Total 450 Balance 90 Result Diagrams: 06/05/20 11:20 06/05/20 11:20 Additional Labs: Abnormal Lab Results - Last 48 hrs 06/04/20 14:11: Urine Protein 30 A, Urine Blood 2+ A 06/04/20 15:31: Creatine Kinase 1453 H 06/04/20 15:31: WBC 11.3 H, RBC 3.95 L, Hgb 11.8 L, Hct 35.0 L, Neutrophils % 75.5 H, Lymphocytes % 9.6 L, Monocytes % 13.9 H, Neutrophils # 8.5 H, Lymphocytes # 1.1 L, Monocytes # 1.6 H 06/04/20 21:45: RBC 3.67 L, Hgb 11.0 L, Hct 32.8 L, Neutrophils % 75.9 H, Lymphocytes % 8.8 L, Monocytes % 12.4 H, Neutrophils # 7.1 H, Lymphocytes # 0.8 L, Monocytes # 1.2 H 06/04/20 21:45: Magnesium 1.3 L 06/05/20 11:20: RBC 3.81 L, Hgb 11.2 L, Hct 34.5 L, Lymphocytes % 11.1 L, Monocytes % 12.8 H, Neutrophils # 6.9 H, Lymphocytes # 1.0 L, Monocytes # 1.2 H Radiology Reviewed by me: Yes (CT chest/abdomennegative) Hospitalist ROS - Review of Systems Cardiovascular: denies: chest pain, palpitations, orthopnea, paroxysmal noc. dyspnea, edema, light headedness, other Gastrointestinal: denies: nausea, vomiting, abdominal pain, diarrhea, constipation, melena, hematochezia, other - Medication Medications: Active Medications Generic Name Dose Route Start Last Admin Trade Name Rosalioq PRN Reason Stop Dose Admin Sodium Chloride 1,000 mls @ 125 mls/hr 06/05/20 11:00 06/05/20 14:41 Normal Saline 0.9% IV 1,000 mls .Q8H TAYLOR Administration - Exam General Appearance: ill appearing Neck: supple, no JVD Heart: RRR, no gallops, no rubs, normal peripheral pulses Respiratory: no wheezes, no rales, no ronchi, normal chest expansion Gastrointestinal: soft, non-tender, no guarding, no rigidity Extremities: no cyanosis, no clubbing Neurological: no new deficit Musculoskeletal: generalized weakness Psychiatric: A&O x 3, somnolent Hosp A/P - Plan DVT proph w/SCDs Generalized weakness with recurrent falls Rhabdomyolysis Hypomagnesemia Diabetes mellitus type 2 Bipolar disorder Paroxysmal atrial fibrillation on anticoagulation Recent hospitalization for encephalopathy Hypertension Left scalp hematoma Glaucoma Plan: Neurology input appreciated. MRI of the brain was negative for acute CVA. Add IV fluids for rhabdomyolysis. Replace magnesium. Restart anticoagulation after 24 hours if mentation stable. Start selected home medication add low-dose. A.m. labs. Plan discussed with the son over the phone in detail. Inpatient rehab evaluation in progress pending insurance approval.
[2020-06-05] MEDS ORDERED: Albuterol 200 PUFF (6.7GM INHALER) INH PRN (19:21)
[2020-06-05] MEDS ORDERED: Dextrose 50% Abboject 50 ML SYRINGE SLOW IVP PRN (19:31)
[2020-06-05] MEDS ORDERED: Dextrose 5% in Water 1,000 ML IV PRN (19:31)
[2020-06-05] MEDS: Famotidine 20 MG TAB PO SCH (21:38)
[2020-06-05] MEDS: Latanoprost 0.005% Ophth Soln 2.5 ml Bottle EA EYE SCH (21:38)
[2020-06-05] MEDS: Senokot S 8.6-50 MG TAB PO SCH (21:38)
[2020-06-06] MEDS: Sodium Chloride 0.9% 1,000 ML IV SCH ×3 (02:06→17:00)
[2020-06-06 07:10] LABS: #Eosinphils 0.2 thou/uL (0.0-0.7); #Lymphocytes 1.1 thou/uL (1.20-3.40); #Monocytes 1.1 thou/uL (0.11-0.59); #Neutrophils 6.3 thou/uL (1.40-6.50); %Basophils 0.1 % (0.0-1.0); %Eosinophils 2.6 % (0.0-10.0); %Lymphocytes 12.5 % (21.0-51.0); %Monocytes 12.5 % (0.0-10.0); %Neutrophils 72.2 % (42.0-75.0); Hemoglobin 10.8 g/dL (12.0-16.0); Mean Corpuscular HGB CONC 33.9 g/dL (32.0-36.0); Mean Corpuscular Hemoglobin 30.4 pg (27.0-31.0); Mean Corpuscular Volume 89.8 fL (78.0-98.0); Mean Platelet Volume 9.3 fL (7.4-10.4); Platelet Count 195 thou/uL (130-400); RBC Distribution Width 12.9 % (11.5-14.5); Red Blood Cell (RBC) Count 3.56 mill/uL (4.20-5.40); White Blood Cell (WBC) Count 8.7 thou/uL (4.8-10.8)
[2020-06-06 07:38] LABS: ALT (SGPT) 15 U/L (8-55); AST (SGOT) 18 U/L (5-34); Albumin 3.2 g/dL (3.4-4.8); Alkaline Phosphatase 40 U/L (40-110); Anion Gap 14 mmol/L (10-20); BUN (Urea Nitrogen) 10 mg/dL (9.8-20.1); Bilirubin, Total 0.6 mg/dL (0.2-1.2); CK (CPK) 468 U/L (29-168); Calc. Creatinine Clearance 67 mL/min (70-130); Calcium 8.4 mg/dL (7.8-10.44); Carbon Dioxide 29 mmol/L (23-31); Chloride 104 mmol/L (98-107); Globulin 2.2 g/dL (2.4-3.5); Glucose 139 mg/dL (83-110); Magnesium 1.9 mg/dL (1.6-2.6); Phosphorus 3.9 mg/dL (2.3-4.7); Potassium 3.9 mmol/L (3.5-5.1); Protein, Total 5.4 g/dL (6.0-8.3); Sodium 143 mmol/L (136-145)
[2020-06-06] MEDS ORDERED: Magnesium 2 GM/50 ML 2 GM in Premix Bag 1 BAG IVPB SCH (08:00)
[2020-06-06] MEDS: Famotidine 20 MG TAB PO SCH ×2 (08:54→21:37)
[2020-06-06] MEDS: Senokot S 8.6-50 MG TAB PO SCH ×2 (08:55→21:37)
[2020-06-06] MEDS: Ferrous Sulfate 325 MG TAB PO SCH (08:57)
[2020-06-06] MEDS: Apixaban 5 MG TAB PO SCH ×2 (08:57→21:36)
[2020-06-06] MEDS: Cyanocobalamin (Vitamin B-12) 1,000 MCG TAB PO SCH (08:57)
[2020-06-06] MEDS: Ascorbic Acid 500 mg Chewable Tablet PO SCH (08:57)
[2020-06-06] MEDS: Multivit, Therapeutic 1 TAB PO SCH (08:57)
[2020-06-06] MEDS: Fish Oil 1,000 MG CAP PO SCH (08:58)
[2020-06-06] MEDS: Amiodarone 200 MG TAB PO SCH (08:58)
[2020-06-06] MEDS ORDERED: Amlodipine 5 MG TAB PO SCH (09:00)
--- NOTE | 2020-06-06 16:20 | PDOC.HOSPP ---
- Subjective Encounter Date: 06/06/20 Encounter Time: 11:00 Subjective: Patient seen and examined for generalized weakness with fall causing rhabdomyolysis. No significant events overnight. No chest pain, shortness of breath, fever or palpitations. Poor appetite per RN - Objective Vital Signs & Weight: Vital Signs (12 hours) Temp Pulse Resp BP BP Pulse Ox 06/06/20 12:32 98.9 F 81 20 171/89 H 93 L 06/06/20 12:00 98.9 F 06/06/20 08:56 68 151/76 H 06/06/20 08:28 99.1 F 68 20 151/76 H 94 L 06/06/20 08:00 99.1 F 94 L 06/06/20 05:32 98.5 F 76 16 159/89 H 96 Weight Weight 176 lb 6.4 oz I&O: 06/05/20 06/06/20 06/07/20 06:59 06:59 06:59 Intake Total 540 1500 360 Output Total 450 700 Balance 90 800 360 Result Diagrams: 06/06/20 06:03 06/06/20 06:03 Additional Labs: Accuchecks 06/06/20 06/06/20 06/06/20 16:04 12:11 04:18 POC Glucose 186 H 179 H 134 H 06/05/20 20:04 POC Glucose 177 H Abnormal Lab Results - Last 48 hrs 06/04/20 21:45: RBC 3.67 L, Hgb 11.0 L, Hct 32.8 L, Neutrophils % 75.9 H, Lymphocytes % 8.8 L, Monocytes % 12.4 H, Neutrophils # 7.1 H, Lymphocytes # 0.8 L, Monocytes # 1.2 H 06/04/20 21:45: Magnesium 1.3 L 06/05/20 11:20: RBC 3.81 L, Hgb 11.2 L, Hct 34.5 L, Lymphocytes % 11.1 L, Monocytes % 12.8 H, Neutrophils # 6.9 H, Lymphocytes # 1.0 L, Monocytes # 1.2 H 06/06/20 06:03: Creatine Kinase 468 H, Serum Total Protein 5.4 L, Albumin 3.2 L, Globulin 2.2 L 06/06/20 06:03: RBC 3.56 L, Hgb 10.8 L, Hct 31.9 L, Lymphocytes % 12.5 L, Monocytes % 12.5 H, Lymphocytes # 1.1 L, Monocytes # 1.1 H Radiology Reviewed by me: Yes (Brain MRInegative for CVA) Hospitalist ROS - Review of Systems Respiratory: denies: cough, dry, shortness of breath, hemoptysis, SOB with excertion, pleuritic pain, sputum, wheezing, other Cardiovascular: denies: chest pain, palpitations, orthopnea, paroxysmal noc. dyspnea, edema, light headedness, other - Medication Medications: Active Medications Generic Name Dose Route Start Last Admin Trade Name Freq PRN Reason Stop Dose Admin Amiodarone HCl 400 mg 06/06/20 09:00 06/06/20 08:58 Amiodarone 200 Mg Tab PO 400 mg DAILY TAYLOR Administration Amlodipine Besylate 2.5 mg 06/06/20 09:00 06/06/20 08:56 Amlodipine 5 Mg Tab PO 2.5 mg DAILY TAYLOR Administration Apixaban 5 mg 06/06/20 09:00 06/06/20 08:57 Apixaban 5 Mg Tab PO 5 mg BID TAYLOR Administration Ascorbic Acid 500 mg 06/06/20 09:00 06/06/20 08:57 Ascorbic Acid 500 Mg Chewable Tablet PO 500 mg DAILY TAYLOR Administration Cyanocobalamin 500 mcg 06/06/20 09:00 06/06/20 08:57 Cyanocobalamin (Vitamin B-12) 1,000 Mcg Tab PO 500 mcg DAILY TAYLOR Administration Famotidine 20 mg 06/05/20 21:00 06/06/20 08:54 Famotidine 20 Mg Tab PO 20 mg BID TAYLOR Administration Ferrous Sulfate 325 mg 06/06/20 09:00 06/06/20 08:57 Ferrous Sulfate 325 Mg Tab PO 325 mg DAILY TAYLOR Administration Fish Oil 1,000 mg 06/06/20 09:00 06/06/20 08:58 Fish Oil 1,000 Mg Cap PO 1,000 mg DAILY TAYLOR Administration Sodium Chloride 1,000 mls @ 125 mls/hr 06/05/20 11:00 06/06/20 12:52 Normal Saline 0.9% IV 1,000 mls .Q8H TAYLOR Administration Latanoprost 1 drop 06/05/20 21:00 06/05/20 21:38 Latanoprost 0.005% Ophth Soln 2.5 Ml Bottle EA EYE 1 drop HS TAYLOR Administration Multivitamins 1 tab 06/06/20 09:00 06/06/20 08:57 Multivit, Therapeutic 1 Tab PO 1 tab DAILY TAYLOR Administration Senna/Docusate Sodium 2 tab 06/05/20 21:00 06/06/20 08:55 Senokot S 8.6-50 Mg Tab PO 2 tab BID TAYLOR Administration Sodium Chloride 10 ml 06/06/20 09:00 06/06/20 08:58 Flush - Normal Saline 10 Ml Syringe IVF 10 ml Q12HR TAYLOR Administration - Exam General Appearance: ill appearing Heart: RRR, no gallops Respiratory: no wheezes, no ronchi Gastrointestinal: non-tender, non-distended, no guarding, no rigidity Extremities: no cyanosis, no clubbing Neurological: no new deficit Musculoskeletal: generalized weakness Psychiatric: normal affect, A&O x 3 Hosp A/P - Plan Generalized weakness with recurrent falls Rhabdomyolysis Hypomagnesemia Diabetes mellitus type 2 Bipolar disorder Paroxysmal atrial fibrillation on anticoagulation Recent hospitalization for encephalopathy Hypertension Left scalp hematoma Glaucoma Plan: Reduce IV fluid to 75 mL/h. Increase amlodipine dose due to blood pressure on the higher side. Anticoagulation restarted this morning. Replace magnesium. CK 468 today. Cosyntropin test in a.m.. Continue Ensure. Continue other medications as above. Will continue with sliding scale. Continue physical therapy. Await placement 06/05 Neurology input appreciated. MRI of the brain was negative for acute CVA. Add IV fluids for rhabdomyolysis. Replace magnesium. Restart anticoagulation after 24 hours if mentation stable. Start selected home medication add low-dose. A.m. labs. Plan discussed with the son over the phone in detail. Inpatient rehab evaluation in progress pending insurance approval.
[2020-06-06] MEDS ORDERED: Cosyntropin 250 MCG VIAL SLOW IVP SCH (16:30)
[2020-06-06] MEDS: Latanoprost 0.005% Ophth Soln 2.5 ml Bottle EA EYE SCH (21:36)
[2020-06-06] MEDS: Amlodipine 5 MG TAB PO SCH (21:36)
[2020-06-07] MEDS: Acetaminophen 325 MG TAB PO PRN ×2 (06:08→15:46)
[2020-06-07] MEDS: Cyanocobalamin (Vitamin B-12) 1,000 MCG TAB PO SCH (08:55)
[2020-06-07] MEDS: Ascorbic Acid 500 mg Chewable Tablet PO SCH (08:55)
[2020-06-07] MEDS: Amlodipine 5 MG TAB PO SCH ×2 (08:56→21:04)
[2020-06-07] MEDS: Famotidine 20 MG TAB PO SCH ×2 (08:56→21:04)
[2020-06-07] MEDS: Amiodarone 200 MG TAB PO SCH (08:57)
[2020-06-07] MEDS: Apixaban 5 MG TAB PO SCH ×2 (08:57→21:05)
[2020-06-07] MEDS: Fish Oil 1,000 MG CAP PO SCH (08:57)
[2020-06-07] MEDS: Multivit, Therapeutic 1 TAB PO SCH (08:57)
[2020-06-07] MEDS: Senokot S 8.6-50 MG TAB PO SCH ×2 (08:57→21:04)
[2020-06-07] MEDS: Ferrous Sulfate 325 MG TAB PO SCH (08:57)
[2020-06-07] MEDS: Sodium Chloride 0.9% 1,000 ML IV SCH (11:53)
[2020-06-07] MEDS: Latanoprost 0.005% Ophth Soln 2.5 ml Bottle EA EYE SCH (21:25)
--- NOTE | 2020-06-07 23:02 | PDOC.HOSPP ---
- Subjective Encounter Date: 06/07/20 Encounter Time: 14:30 Subjective: Patient seen and examined for generalized weakness. Some neck discomfort that started overnight. No new focal deficit. No double vision, blurring of vision or facial asymmetry. No chest pain or shortness of breath. - Objective Vital Signs & Weight: Vital Signs (12 hours) Temp Pulse Resp BP Pulse Ox 06/07/20 21:58 98.0 F 64 18 160/85 H 95 06/07/20 16:00 98.2 F 62 20 152/79 H 97 06/07/20 11:59 98.4 F 64 20 166/77 H 93 L Weight Weight 176 lb 6.4 oz I&O: 06/06/20 06/07/20 06/08/20 06:59 06:59 06:59 Intake Total 1500 2660 1760 Output Total 700 1500 1100 Balance 800 1160 660 Result Diagrams: 06/06/20 06:03 06/06/20 06:03 Additional Labs: Accuchecks 06/07/20 06/07/20 06/07/20 21:16 17:04 11:51 POC Glucose 160 H 206 H 197 H 06/07/20 04:58 POC Glucose 170 H Abnormal Lab Results - Last 48 hrs 06/06/20 06:03: Creatine Kinase 468 H, Serum Total Protein 5.4 L, Albumin 3.2 L, Globulin 2.2 L 06/06/20 06:03: RBC 3.56 L, Hgb 10.8 L, Hct 31.9 L, Lymphocytes % 12.5 L, Monocytes % 12.5 H, Lymphocytes # 1.1 L, Monocytes # 1.1 H Hospitalist ROS - Review of Systems Respiratory: denies: cough, dry, shortness of breath, hemoptysis, SOB with excertion, pleuritic pain, sputum, wheezing, other Cardiovascular: denies: chest pain, palpitations, orthopnea, paroxysmal noc. dyspnea, edema, light headedness, other - Medication Medications: Active Medications Generic Name Dose Route Start Last Admin Trade Name Freq PRN Reason Stop Dose Admin Acetaminophen 650 mg 06/05/20 10:59 06/07/20 15:46 Acetaminophen 325 Mg Tab PO 650 mg Q4H PRN Administration Headache/Fever/Mild Pain (1-3) Amiodarone HCl 400 mg 06/06/20 09:00 06/07/20 08:57 Amiodarone 200 Mg Tab PO 400 mg DAILY TAYLOR Administration Amlodipine Besylate 2.5 mg 06/06/20 21:00 06/07/20 21:04 Amlodipine 5 Mg Tab PO 2.5 mg BID TAYLOR Administration Apixaban 5 mg 06/06/20 09:00 06/07/20 21:05 Apixaban 5 Mg Tab PO 5 mg BID TAYLOR Administration Ascorbic Acid 500 mg 06/06/20 09:00 06/07/20 08:55 Ascorbic Acid 500 Mg Chewable Tablet PO 500 mg DAILY TAYLOR Administration Cyanocobalamin 500 mcg 06/06/20 09:00 06/07/20 08:55 Cyanocobalamin (Vitamin B-12) 1,000 Mcg Tab PO 500 mcg DAILY TAYLOR Administration Famotidine 20 mg 06/05/20 21:00 06/07/20 21:04 Famotidine 20 Mg Tab PO 20 mg BID TAYLOR Administration Ferrous Sulfate 325 mg 06/06/20 09:00 06/07/20 08:57 Ferrous Sulfate 325 Mg Tab PO 325 mg DAILY TAYLOR Administration Fish Oil 1,000 mg 06/06/20 09:00 06/07/20 08:57 Fish Oil 1,000 Mg Cap PO 1,000 mg DAILY TAYLOR Administration Sodium Chloride 1,000 mls @ 70 mls/hr 06/06/20 17:00 06/07/20 11:53 Normal Saline 0.9% IV 1,000 mls .[id number] TAYLOR Administration Latanoprost 1 drop 06/05/20 21:00 06/07/20 21:25 Latanoprost 0.005% Ophth Soln 2.5 Ml Bottle EA EYE 1 drop HS TAYLOR Administration Multivitamins 1 tab 06/06/20 09:00 06/07/20 08:57 Multivit, Therapeutic 1 Tab PO 1 tab DAILY TAYLOR Administration Senna/Docusate Sodium 2 tab 06/05/20 21:00 06/07/20 21:04 Senokot S 8.6-50 Mg Tab PO 2 tab BID TAYLOR Administration Sodium Chloride 10 ml 06/06/20 09:00 06/07/20 21:05 Flush - Normal Saline 10 Ml Syringe IVF Not Given Q12HR TAYLOR - Exam General Appearance: NAD Neck: supple, no JVD Heart: RRR, no gallops Respiratory: no wheezes, no ronchi Gastrointestinal: soft, non-tender, normal bowel sounds Extremities: no cyanosis Neurological: no new deficit Musculoskeletal: generalized weakness Psychiatric: normal affect, A&O x 3 Hosp A/P - Plan DVT proph w/SCDs Generalized weakness with recurrent falls Rhabdomyolysis Hypomagnesemia Diabetes mellitus type 2 Bipolar disorder Paroxysmal atrial fibrillation on anticoagulation Recent hospitalization for encephalopathy Hypertension Left scalp hematoma Glaucoma Plan: Continue supportive care. Cosyntropin test negative. Continue physical therapy. Intermittent confusion reported by RN. Case discussed with the son in detail. Patient is stable for discharge to [facility] facility once accepted. Continue current medications as above. Recheck labs including CK in a.m. 06/06 Reduce IV fluid to 75 mL/h. Increase amlodipine dose due to blood pressure on the higher side. Anticoagulation restarted this morning. Replace magnesium. CK 468 today. Cosyntropin test in a.m.. Continue Ensure. Continue other medications as above. Will continue with sliding scale. Continue physical therapy. Await placement 06/05 Neurology input appreciated. MRI of the brain was negative for acute CVA. Add IV fluids for rhabdomyolysis. Replace magnesium. Restart anticoagulation after 24 hours if mentation stable. Start selected home medication add low-dose. A.m. labs. Plan discussed with the son over the phone in detail. Inpatient rehab evaluation in progress pending insurance approval.
[2020-06-08] MEDS: Sodium Chloride 0.9% 1,000 ML IV SCH ×3 (03:47→18:18)
[2020-06-08 06:30] LABS: #Eosinphils 0.3 thou/uL (0.0-0.7); #Neutrophils 4.3 thou/uL (1.40-6.50); %Basophils 0.4 % (0.0-1.0); %Eosinophils 5.3 % (0.0-10.0); %Lymphocytes 15.2 % (21.0-51.0); %Monocytes 14.7 % (0.0-10.0); %Neutrophils 64.5 % (42.0-75.0); Hemoglobin 10.5 g/dL (12.0-16.0); Mean Corpuscular HGB CONC 33.5 g/dL (32.0-36.0); Mean Corpuscular Hemoglobin 29.7 pg (27.0-31.0); Mean Corpuscular Volume 88.5 fL (78.0-98.0); Mean Platelet Volume 8.5 fL (7.4-10.4); Platelet Count 210 thou/uL (130-400); RBC Distribution Width 12.5 % (11.5-14.5); Red Blood Cell (RBC) Count 3.54 mill/uL (4.20-5.40); White Blood Cell (WBC) Count 6.6 thou/uL (4.8-10.8)
[2020-06-08 06:50] LABS: Phosphorus 3.5 mg/dL (2.3-4.7)
[2020-06-08 06:55] LABS: Anion Gap 12 mmol/L (10-20); BUN (Urea Nitrogen) 10 mg/dL (9.8-20.1); CK (CPK) 183 U/L (29-168); Calc. Creatinine Clearance 73 mL/min (70-130); Calcium 8.5 mg/dL (7.8-10.44); Carbon Dioxide 29 mmol/L (23-31); Chloride 105 mmol/L (98-107); Glucose 163 mg/dL (83-110); Magnesium 1.4 mg/dL (1.6-2.6); Potassium 3.6 mmol/L (3.5-5.1); Sodium 142 mmol/L (136-145)
[2020-06-08] MEDS ORDERED: Magnesium Sulfate 4 GM in Sodium Chloride 0.9% 250 ML 250 ML IVPB SCH (08:00)
[2020-06-08] MEDS: Amlodipine 5 MG TAB PO SCH ×2 (09:26→21:00)
[2020-06-08] MEDS: Amiodarone 200 MG TAB PO SCH (09:26)
[2020-06-08] MEDS: Ascorbic Acid 500 mg Chewable Tablet PO SCH (09:27)
[2020-06-08] MEDS: Apixaban 5 MG TAB PO SCH ×2 (09:27→21:00)
[2020-06-08] MEDS: Cyanocobalamin (Vitamin B-12) 1,000 MCG TAB PO SCH (09:27)
[2020-06-08] MEDS: Fish Oil 1,000 MG CAP PO SCH (09:28)
[2020-06-08] MEDS: Multivit, Therapeutic 1 TAB PO SCH (09:28)
[2020-06-08] MEDS: Famotidine 20 MG TAB PO SCH ×2 (09:28→21:00)
[2020-06-08] MEDS: Ferrous Sulfate 325 MG TAB PO SCH (09:28)
[2020-06-08] MEDS: Senokot S 8.6-50 MG TAB PO SCH ×2 (09:36→21:00)
[2020-06-08] MEDS: Acetaminophen 325 MG TAB PO PRN (11:30)
--- NOTE | 2020-06-08 13:24 | PDOC.HOSPP ---
- Subjective Encounter Date: 06/08/20 Subjective: No new events overnight. - Objective Vital Signs & Weight: Vital Signs (12 hours) Temp Pulse Resp BP Pulse Ox 06/08/20 09:30 95 06/08/20 09:26 59 L 06/08/20 08:00 98.7 F 59 L 18 154/78 H 95 06/08/20 03:52 61 16 171/70 H Weight Weight 176 lb 6.4 oz I&O: 06/07/20 06/08/20 06/09/20 06:59 06:59 06:59 Intake Total 2660 2720 Output Total 1500 1550 Balance 1160 1170 Result Diagrams: 06/08/20 06:12 06/08/20 06:12 Additional Labs: Accuchecks 06/08/20 06/08/20 06/07/20 11:50 04:35 21:16 POC Glucose 160 H 151 H 160 H 06/07/20 17:04 POC Glucose 206 H Hospitalist ROS - Medication Medications: Active Medications Generic Name Dose Route Start Last Admin Trade Name Freq PRN Reason Stop Dose Admin Acetaminophen 650 mg 06/05/20 10:59 06/08/20 11:30 Acetaminophen 325 Mg Tab PO 650 mg Q4H PRN Administration Headache/Fever/Mild Pain (1-3) Amiodarone HCl 400 mg 06/06/20 09:00 06/08/20 09:26 Amiodarone 200 Mg Tab PO 400 mg DAILY TAYLOR Administration Amlodipine Besylate 2.5 mg 06/06/20 21:00 06/08/20 09:26 Amlodipine 5 Mg Tab PO 2.5 mg BID TAYLOR Administration Apixaban 5 mg 06/06/20 09:00 06/08/20 09:27 Apixaban 5 Mg Tab PO 5 mg BID TAYLOR Administration Ascorbic Acid 500 mg 06/06/20 09:00 06/08/20 09:27 Ascorbic Acid 500 Mg Chewable Tablet PO 500 mg DAILY TAYLOR Administration Cyanocobalamin 500 mcg 06/06/20 09:00 06/08/20 09:27 Cyanocobalamin (Vitamin B-12) 1,000 Mcg Tab PO 500 mcg DAILY TAYLOR Administration Famotidine 20 mg 06/05/20 21:00 06/08/20 09:28 Famotidine 20 Mg Tab PO 20 mg BID TAYLOR Administration Ferrous Sulfate 325 mg 06/06/20 09:00 06/08/20 09:28 Ferrous Sulfate 325 Mg Tab PO 325 mg DAILY TAYLOR Administration Fish Oil 1,000 mg 06/06/20 09:00 06/08/20 09:28 Fish Oil 1,000 Mg Cap PO 1,000 mg DAILY TAYLOR Administration Sodium Chloride 1,000 mls @ 70 mls/hr 06/06/20 17:00 06/08/20 03:47 Normal Saline 0.9% IV 1,000 mls .[id number] TAYLOR Administration Latanoprost 1 drop 06/05/20 21:00 06/07/20 21:25 Latanoprost 0.005% Ophth Soln 2.5 Ml Bottle EA EYE 1 drop HS TAYLOR Administration Multivitamins 1 tab 06/06/20 09:00 06/08/20 09:28 Multivit, Therapeutic 1 Tab PO 1 tab DAILY TAYLOR Administration Senna/Docusate Sodium 2 tab 06/05/20 21:00 06/08/20 09:36 Senokot S 8.6-50 Mg Tab PO Not Given BID TAYLOR Sodium Chloride 10 ml 06/06/20 09:00 06/08/20 09:36 Flush - Normal Saline 10 Ml Syringe IVF Not Given Q12HR TAYLOR - Exam ENT: normocephalic atraumatic Neck: supple Heart: RRR Respiratory: normal chest expansion, no tachypnea Extremities: no cyanosis, no clubbing Hosp A/P - Plan Generalized weakness with recurrent falls Rhabdomyolysis Hypomagnesemia Diabetes mellitus type 2 Bipolar disorder Paroxysmal atrial fibrillation on anticoagulation Recent hospitalization for encephalopathy Hypertension Left scalp hematoma Glaucoma Plan: 06/08 Rhabdomyolysis has resolved. The patient is clinically stable for discharge once placement is available. 06/07 Continue supportive care. Cosyntropin test negative. Continue physical therapy. Intermittent confusion reported by RN. Case discussed with the son in detail. Patient is stable for discharge to shelter facility once accepted. Continue current medications as above. Recheck labs including CK in a.m. 06/06 Reduce IV fluid to 75 mL/h. Increase amlodipine dose due to blood pressure on the higher side. Anticoagulation restarted this morning. Replace magnesium. CK 468 today. Cosyntropin test in a.m.. Continue Ensure. Continue other medications as above. Will continue with sliding scale. Continue physical therapy. Await placement 06/05 Neurology input appreciated. MRI of the brain was negative for acute CVA. Add IV fluids for rhabdomyolysis. Replace magnesium. Restart anticoagulation after 24 hours if mentation stable. Start selected home medication add low-dose. A.m. labs. Plan discussed with the son over the phone in detail. Inpatient rehab evaluation in progress pending insurance approval.
[2020-06-08] MEDS: traMADol HCl 50 MG TAB PO PRN ×2 (15:35→21:19)
[2020-06-08] MEDS: HumaLOG 300 UNITS/3 ML VIAL SC PRN (18:19)
[2020-06-08] MEDS: Latanoprost 0.005% Ophth Soln 2.5 ml Bottle EA EYE SCH (21:01)
[2020-06-09] MEDS: Sodium Chloride 0.9% 1,000 ML IV SCH (09:20)
[2020-06-09] MEDS: Apixaban 5 MG TAB PO SCH ×2 (09:23→20:21)
[2020-06-09] MEDS: Multivit, Therapeutic 1 TAB PO SCH (09:23)
[2020-06-09] MEDS: Senokot S 8.6-50 MG TAB PO SCH ×2 (09:23→20:21)
[2020-06-09] MEDS: Ferrous Sulfate 325 MG TAB PO SCH (09:23)
[2020-06-09] MEDS: Amlodipine 5 MG TAB PO SCH ×2 (09:23→20:21)
[2020-06-09] MEDS: Famotidine 20 MG TAB PO SCH ×2 (09:23→20:20)
[2020-06-09] MEDS: Amiodarone 200 MG TAB PO SCH (09:29)
[2020-06-09] MEDS: Cyanocobalamin (Vitamin B-12) 1,000 MCG TAB PO SCH (09:29)
[2020-06-09] MEDS: Fish Oil 1,000 MG CAP PO SCH (09:30)
[2020-06-09] MEDS: Ascorbic Acid 500 mg Chewable Tablet PO SCH (09:30)
[2020-06-09] MEDS: HumaLOG 300 UNITS/3 ML VIAL SC PRN ×2 (11:42→17:21)
[2020-06-09] MEDS: traMADol HCl 50 MG TAB PO PRN (17:26)
[2020-06-09] MEDS: Acetaminophen 325 MG TAB PO PRN (20:21)
[2020-06-09] MEDS: Latanoprost 0.005% Ophth Soln 2.5 ml Bottle EA EYE SCH (20:22)
[2020-06-09] MEDS ORDERED: Sodium Chloride 0.9% 1,000 ML IV SCH (23:07)
--- NOTE | 2020-06-09 23:07 | PDOC.HOSPP ---
- Subjective Encounter Date: 06/09/20 Encounter Time: 14:00 Subjective: Patient seen and examined for generalized weakness. Symptomatically feeling better. More energy. Denies any fever, chills, cough, nausea or chest pain - Objective Vital Signs & Weight: Vital Signs (12 hours) Temp Pulse Resp BP Pulse Ox 06/09/20 20:21 67 06/09/20 20:00 99.0 F 67 16 113/82 95 06/09/20 18:19 151/80 H Weight Weight 176 lb 6.4 oz I&O: 06/08/20 06/09/20 06/10/20 06:59 06:59 06:59 Intake Total 2720 2850 1794 Output Total 1550 1450 950 Balance 1170 1400 844 Result Diagrams: 06/08/20 06:12 06/08/20 06:12 Additional Labs: Accuchecks 06/09/20 06/09/20 06/09/20 20:07 15:42 11:03 POC Glucose 239 H 238 H 200 H 06/09/20 04:57 POC Glucose 136 H Abnormal Lab Results - Last 48 hrs 06/08/20 06:12: Magnesium 1.4 L, Creatine Kinase 183 H 06/08/20 06:12: RBC 3.54 L, Hgb 10.5 L, Hct 31.3 L, Lymphocytes % 15.2 L, Monocytes % 14.7 H, Lymphocytes # 1.0 L, Monocytes # 1.0 H Hospitalist ROS - Review of Systems Constitutional: reports: weakness Respiratory: denies: cough, dry, shortness of breath, hemoptysis, SOB with excertion, pleuritic pain, sputum, wheezing, other Cardiovascular: denies: chest pain, palpitations, orthopnea, paroxysmal noc. dyspnea, edema, light headedness, other - Medication Medications: Active Medications Generic Name Dose Route Start Last Admin Trade Name Freq PRN Reason Stop Dose Admin Acetaminophen 650 mg 06/05/20 10:59 06/09/20 20:21 Acetaminophen 325 Mg Tab PO 650 mg Q4H PRN Administration Headache/Fever/Mild Pain (1-3) Amiodarone HCl 400 mg 06/06/20 09:00 06/09/20 09:29 Amiodarone 200 Mg Tab PO 400 mg DAILY TAYLOR Administration Amlodipine Besylate 2.5 mg 06/06/20 21:00 06/09/20 20:21 Amlodipine 5 Mg Tab PO 2.5 mg BID TAYLOR Administration Apixaban 5 mg 06/06/20 09:00 06/09/20 20:21 Apixaban 5 Mg Tab PO 5 mg BID TAYLOR Administration Ascorbic Acid 500 mg 06/06/20 09:00 06/09/20 09:30 Ascorbic Acid 500 Mg Chewable Tablet PO 500 mg DAILY TAYLOR Administration Cyanocobalamin 500 mcg 06/06/20 09:00 06/09/20 09:29 Cyanocobalamin (Vitamin B-12) 1,000 Mcg Tab PO 500 mcg DAILY TAYLOR Administration Famotidine 20 mg 06/05/20 21:00 06/09/20 20:20 Famotidine 20 Mg Tab PO 20 mg BID TAYLOR Administration Ferrous Sulfate 325 mg 06/06/20 09:00 06/09/20 09:23 Ferrous Sulfate 325 Mg Tab PO 325 mg DAILY TAYLOR Administration Fish Oil 1,000 mg 06/06/20 09:00 06/09/20 09:30 Fish Oil 1,000 Mg Cap PO 1,000 mg DAILY TAYLOR Administration Sodium Chloride 1,000 mls @ 70 mls/hr 06/06/20 17:00 06/09/20 09:20 Normal Saline 0.9% IV 1,000 mls .[id number] TAYLOR Administration Insulin Human Lispro 0 units 06/08/20 16:58 06/09/20 17:21 Humalog 300 Units/3 Ml Vial SC 3 unit .MILD SLIDING SCALE PRN Administration Mild Correctional Scale Latanoprost 1 drop 06/05/20 21:00 06/09/20 20:22 Latanoprost 0.005% Ophth Soln 2.5 Ml Bottle EA EYE 1 drop HS TAYLOR Administration Multivitamins 1 tab 06/06/20 09:00 06/09/20 09:23 Multivit, Therapeutic 1 Tab PO 1 tab DAILY TAYLOR Administration Senna/Docusate Sodium 2 tab 06/05/20 21:00 06/09/20 20:21 Senokot S 8.6-50 Mg Tab PO 2 tab BID TAYLOR Administration Sodium Chloride 10 ml 06/06/20 09:00 06/09/20 20:33 Flush - Normal Saline 10 Ml Syringe IVF Not Given Q12HR TAYLOR Tramadol HCl 50 mg 06/08/20 15:06/09/20 17:26 Tramadol Hcl 50 Mg Tab PO 50 mg Q6H PRN Administration Pain 4-6 - Exam General Appearance: NAD Neck: supple, no JVD Heart: RRR, no gallops Respiratory: no wheezes, no rales Gastrointestinal: non-tender, non-distended Extremities: no cyanosis Hosp A/P - Plan PT/OT Generalized weakness with recurrent falls Rhabdomyolysis Hypomagnesemia Diabetes mellitus type 2 Bipolar disorder Paroxysmal atrial fibrillation on anticoagulation Recent hospitalization for encephalopathy Hypertension Left scalp hematoma Glaucoma Plan: Replace magnesium. No reversible etiology for generalized weakness identified. Will await placement. Recheck labs in a.m. Continue sliding scale. Continue to monitor. Continue physical therapy/Occupational Therapy. Awaiting response from [facility] 06/07 Continue supportive care. Cosyntropin test negative. Continue physical therapy. Intermittent confusion reported by RN. Case discussed with the son in detail. Patient is stable for discharge to senior living facility once accepted. Continue current medications as above. Recheck labs including CK in a.m. 06/06 Reduce IV fluid to 75 mL/h. Increase amlodipine dose due to blood pressure on the higher side. Anticoagulation restarted this morning. Replace magnesium. CK 468 today. Cosyntropin test in a.m.. Continue Ensure. Continue other medications as above. Will continue with sliding scale. Continue physical therapy. Await placement 06/05 Neurology input appreciated. MRI of the brain was negative for acute CVA. Add IV fluids for rhabdomyolysis. Replace magnesium. Restart anticoagulation after 24 hours if mentation stable. Start selected home medication add low-dose. A.m. labs. Plan discussed with the son over the phone in detail. Inpatient rehab evaluation in progress pending insurance approval.
[2020-06-10 07:11] LABS: #Basophils 0.1 thou/uL (0.0-0.2); #Eosinphils 0.4 thou/uL (0.0-0.7); #Lymphocytes 1.4 thou/uL (1.20-3.40); #Neutrophils 3.9 thou/uL (1.40-6.50); %Basophils 1.4 % (0.0-1.0); %Eosinophils 5.5 % (0.0-10.0); %Lymphocytes 20.9 % (21.0-51.0); %Monocytes 14.4 % (0.0-10.0); %Neutrophils 57.9 % (42.0-75.0); Hemoglobin 10.9 g/dL (12.0-16.0); Mean Corpuscular HGB CONC 33.1 g/dL (32.0-36.0); Mean Corpuscular Hemoglobin 29.7 pg (27.0-31.0); Mean Corpuscular Volume 89.7 fL (78.0-98.0); Mean Platelet Volume 8.4 fL (7.4-10.4); Platelet Count 247 thou/uL (130-400); RBC Distribution Width 12.4 % (11.5-14.5); Red Blood Cell (RBC) Count 3.67 mill/uL (4.20-5.40); White Blood Cell (WBC) Count 6.7 thou/uL (4.8-10.8)
[2020-06-10 07:26] LABS: ALT (SGPT) 9 U/L (8-55); AST (SGOT) 11 U/L (5-34); Albumin 3.1 g/dL (3.4-4.8); Alkaline Phosphatase 41 U/L (40-110); Anion Gap 12 mmol/L (10-20); BUN (Urea Nitrogen) 10 mg/dL (9.8-20.1); Bilirubin, Total 0.4 mg/dL (0.2-1.2); CK (CPK) 71 U/L (29-168); Calc. Creatinine Clearance 70 mL/min (70-130); Calcium 8.7 mg/dL (7.8-10.44); Carbon Dioxide 30 mmol/L (23-31); Chloride 105 mmol/L (98-107); Globulin 2.6 g/dL (2.4-3.5); Glucose 158 mg/dL (83-110); Magnesium 1.4 mg/dL (1.6-2.6); Phosphorus 3.4 mg/dL (2.3-4.7); Potassium 3.7 mmol/L (3.5-5.1); Protein, Total 5.7 g/dL (6.0-8.3); Sodium 143 mmol/L (136-145)
[2020-06-10] MEDS ORDERED: Magnesium Sulfate 4 GM in Sodium Chloride 0.9% 250 ML 250 ML IVPB SCH (08:15)
[2020-06-10] MEDS: Famotidine 20 MG TAB PO SCH (08:53)
[2020-06-10] MEDS: Senokot S 8.6-50 MG TAB PO SCH (08:53)
[2020-06-10] MEDS: Fish Oil 1,000 MG CAP PO SCH (08:53)
[2020-06-10] MEDS: Ferrous Sulfate 325 MG TAB PO SCH (08:53)
[2020-06-10] MEDS: Cyanocobalamin (Vitamin B-12) 1,000 MCG TAB PO SCH (08:54)
[2020-06-10] MEDS: Amiodarone 200 MG TAB PO SCH (08:55)
[2020-06-10] MEDS: Amlodipine 5 MG TAB PO SCH (08:55)
[2020-06-10] MEDS: Multivit, Therapeutic 1 TAB PO SCH (08:55)
[2020-06-10] MEDS: Ascorbic Acid 500 mg Chewable Tablet PO SCH (08:55)
[2020-06-10] MEDS: Apixaban 5 MG TAB PO SCH (08:57)
[2020-06-10 16:07] VITALS: BP 175/73; TEMP 98.2
--- NOTE | 2020-06-10 22:02 | PDOC.DS.DS ---
Provider - Provider Date of Admission: 06/04/20 20:34 Date of Discharge: 06/10/20 Admitting Provider: Javi Molina MD Consultations: Neurology Primary Care Physician: Unknown Course - Hospital Course Hospital Course: Patient is a 79-year-old female with recent hospitalization for generalized weakness presented to the hospital on 06/04 with generalized weakness and fall. Please refer to the history and physical for further details. The patient was admitted to the medical floor with the above diagnosis. CT scan of the brain was negative for acute findings except for left upper acute traumatic scalp contusionhematoma. Cervical spine CT was negative for acute fractures or dislocation. Patient was evaluated by neurology who recommended MRI of the brain as well as EEG. MRI of the brain showed chronic small vessel ischemic changes with left scalp hematoma. EEG was negative for seizure-like activity. There was no fractures noted on other x-rays. She appears stable for discharge to care home facility Final diagnosis: Generalized weakness with recurrent falls Rhabdomyolysis Hypomagnesemia Diabetes mellitus type 2 Bipolar disorder Paroxysmal atrial fibrillation on anticoagulation Recent hospitalization for encephalopathy Hypertension Left scalp hematoma Glaucoma Thyroid nodules on the CT cervical spinethyroid ultrasound as outpatient is recommended. Time coordinating the discharge of this patient was 36 minutes. Resuscitation Status: 06/04/20 21:54 Resuscitation Status Routine Resuscitation Status: FULL: Full Resuscitation - Labs Lab Results: 06/10/20 06:36 06/10/20 06:36 Abnormal Lab Results - Last 48 hrs 06/10/20 06:36: Magnesium 1.4 L, Serum Total Protein 5.7 L, Albumin 3.1 L 06/10/20 06:36: RBC 3.67 L, Hgb 10.9 L, Hct 33.0 L, Lymphocytes % 20.9 L, Monocytes % 14.4 H, Basophils % 1.4 H, Monocytes # 1.0 H - Physical Exam Vitals: Vital Signs (12 hours) Temp Pulse Resp BP Pulse Ox 06/10/20 16:06 98.2 F 67 18 175/73 H 95 06/10/20 12:00 98.4 F 06/10/20 11:37 98.4 F 66 18 156/74 H 97 Weight Weight 176 lb 6.4 oz Physical Exam: The patient was seen and examined on the day of discharge. Plan - Discharge Medications Prescriptions: Magnesium Chloride [Slow-Mag] 64 mg PO TID #90 tab Lisinopril [Zestril] 5 mg PO DAILY #30 tablet Home Medications: Medication Instructions Recorded Confirmed Type Albuterol Sulfate [Albuterol 2 puff PO PRN PRN 05/05/20 06/05/20 History Sulfate Hfa] Ascorbic Acid [Vitamin C] 500 mg PO DAILY 05/05/20 06/05/20 History Citalopram [CeleXA] 10 mg PO HS 05/05/20 06/05/20 History Cyanocobalamin (Vitamin B-12) 500 mg PO DAILY 05/05/20 06/05/20 History [Vitamin B-12] Ferrous Sulfate [Iron] 325 mg PO DAILY 05/05/20 06/05/20 History Fish Oil 1,200 mg PO DAILY 05/05/20 06/05/20 History Latanoprost/Pf [Latanoprost 0.005% 1 drop EA EYE HS 05/05/20 06/05/20 History Eye Drop] Multivitamin/Iron/Folic Acid 1 tab PO DAILY 05/05/20 06/05/20 History [Centrum Adults Tablet] Amlodipine [Norvasc] 2.5 mg PO DAILY tab 05/11/20 06/05/20 Rx Amiodarone [Cordarone] 400 mg PO DAILY #30 tab 05/24/20 06/05/20 Rx Apixaban [Eliquis] 5 mg PO BID #30 tab 05/24/20 06/05/20 Rx Acetaminophen [Tylenol Regular 650 mg PO Q4H PRN tab 06/10/20 Rx Strength] Docusate Sodium [Dulcolax Stool 1 cap PO DAILY #0 06/10/20 06/05/20 Rx Softener] Lisinopril [Zestril] 5 mg PO DAILY #30 tablet 06/10/20 Rx Magnesium Chloride [Slow-Mag] 64 mg PO TID #90 tab 06/10/20 Rx Allergies: No Known Allergies Allergy (Verified 05/11/20 23:40) - Follow up Plan Referrals: Lolita Cardenas MD [Active] - Kirstie Kimbrough MD [Family Provider] - 7 Days Disposition: SENIOR CARE FACILITY Quality - Care Measures CORE MEASURES:: N/A
--- NOTE | 2020-06-13 14:50 | EKG ---
Test Reason : Blood Pressure : / mmHG Vent. Rate : 075 BPM Atrial Rate : 070 BPM P-R Int : 000 ms QRS Dur : 088 ms QT Int : 384 ms P-R-T Axes : 000 -33 069 degrees QTc Int : 428 ms Atrial fibrillation Left axis deviation Minimal voltage criteria for LVH, may be normal variant Abnormal ECG Confirmed by ANITHA Pulido, TONIA ([id number]), movie editor DUC GREEN ([id number]) on 06/13/2020 2:49:59 PM Referred By: Confirmed By:TONIA WELSH M.D.
--- NOTE | 2020-06-13 16:13 | PQF ---
CLINICAL DOCUMENTATION CLARIFICATION FORM: Dear : DANIEL FRANCIS MD Date / Time: 06/13/2020 Please exercise your independent, professional judgment in responding to the clarification form. Clinical indicators are provided on the bottom of this form for your review Please check appropriate box(es): to clarify the rhabdomyolysis type [ ] Traumatic Rhabdomyolysis [ ] Non -Traumatic Rhabdomyolysis [ ] Other diagnosis (Please specify if any) [ ] Unable to determine Physician Signature: Date/Time: For continuity of documentation, please document condition throughout progress notes and discharge summary. Thank You. To be completed by CDI/Coding staff for physician review: Present Clinical Indicators - Signs / Symptoms / Labs Results and Location in Medical Record [x] Patient was brought in to the ED earlier this afternoon on account of a fall H&P on 06/04 [x] Generalized weakness with fall causing rhabdomyolysis Hospitalist PN on 06/06 [x] Rhabdomyolysis resolved Hospitalist PN on 06/08 [x] Present Risk Factors Results and Location in Medical Record [x] Aged person 79 yrs H&P on 06/04 [x] Recurrent falls Discharge summary on 06/10 Present Treatments Results and Location in Medical Record [x] Sodium chloride 1,000 ml IV Medication from 06/05 to 06/09 [ ] [ ] [ ] CDS/Manager Switch Signature: KM[employer] Phone #: Date/Time: 06/13/2020 This is a permanent part of the Medical Record [facility]
== END 2020-06-10 16:15 | DRG 558 ==
LOC: ERS 13:08 → T4-A 20:34 → OBSVTOIN 20:34
PROVIDERS: ADMIT Student in an Organized Health Care Education/Training Program; ATTEND Internal Medicine
DX: M62.82 Rhabdomyolysis (principal); F03.91 Unspecified dementia, unspecified severity, with behavioral disturbance; R53.1 Weakness; E83.42 Hypomagnesemia; E11.9 Type 2 diabetes mellitus without complications; F31.9 Bipolar disorder, unspecified; I48.0 Paroxysmal atrial fibrillation; I10 Essential (primary) hypertension; S00.03XA Contusion of scalp, initial encounter; W19.XXXA Unspecified fall, initial encounter; H40.9 Unspecified glaucoma; E04.1 Nontoxic single thyroid nodule; J45.909 Unspecified asthma, uncomplicated; R53.81 Other malaise; E78.5 Hyperlipidemia, unspecified; J45.20 Mild intermittent asthma, uncomplicated; D25.9 Leiomyoma of uterus, unspecified; Z79.01 Long term (current) use of anticoagulants; Z79.84 Long term (current) use of oral hypoglycemic drugs; Z91.81 History of falling; Z87.440 Personal history of urinary (tract) infections
CPT/HCPCS: 36415; 36416; 51701; 70450; 70553; 71045; 71260; 72125; 72170; 74177; 80048; 80053; 80400; 81003; 81015; 82550; 82607; 82746; 83735; 84100; 84484; 85025; 87635; 93005; 95712; 95819; 95957; 96365; G0378; J0834; J3475; J7050; Q9967; U0003